=== PATIENT | female | born 1940 | race Caucasian/White ===

== ENCOUNTER 2017-07-15 09:04 | Emergency (ER) | payer MEDICARE, OTHER, SELFPAY ==
[2017-07-15 09:06] VITALS: BP 161/75; PULSE 84; RESP 15; TEMP 36.9; O2SAT 96; BMI 23.5
--- NOTE | 2017-07-15 09:16 | RAD_ITS ---
STUDY: X-RAY - PELVIS REASON FOR EXAM: Female, 77 years old. Fall, pain TECHNIQUE: One view of the pelvis was obtained. COMPARISON: None. FINDINGS: There is a non-specific bowel gas pattern. Normal visualized soft tissue structures. Normal bilateral iliac wings, sacroiliac joints and visualized sacrum. Normal visualized bilateral superior and inferior pubic rami. Normal pubic symphysis. Normal ischial tuberosities. Mild demineralization. Normal visualized right femoral head. Normal right acetabulum. There is mild articular joint space narrowing of the right hip. Left leg absent. RAD/Pelvis 1 or 2 Views IMPRESSION: No fracture. Demineralization. Left leg absent. Electronically Signed: Armando Peralta DO at 9:47 EDT , Service support ,
--- NOTE | 2017-07-15 09:29 | ED.VISSUMM ---
- ER Visit Summary Date of Service: 07/15/17 Chief Complaint: Left hip pain History of Present Illness: The patient is a 77 F who presents with pain in her left hip that began after a fall today. Patient states the pain is over the posterior aspect of her left hip area. Patient states the pain is worse with movement. Patient denies any paresthesias or weakness. Patient denies any head injury or loss of consciousness. Patient describes the pain as sharp and throbbing. Patient denies any other injuries. Physical Examination: Vital signs are stable. Patient is afebrile. Patient is in no acute distress. Musculoskeletal exam there is tenderness over the left ischial tuberosity. There is some pain with lateral compression of the pelvis. There is no pain with AP compression of the pelvis. Patient has had a prior left lower extremity amputation. The remaining physical exam is within normal limits. Test Results: X-rays of the pelvis were obtained. There is no acute fracture. This was interpreted by myself and the radiologist. Emergency Department Course and Treatment: Patient declined analgesics. Patient states she has gabapentin at home and can take Tylenol or Motrin along with this. Patient was instructed to use ice to the area. Patient was instructed to follow-up with her primary care physician in 7-10 days. Patient understood and was agreeable with the plan. All questions were answered. Disposition: Discharge home Impression: Left hip contusion This note was generated with [employer] dictation software. It may contain incorrect words, spelling, and punctuation that were not noted in review of the chart prior to signing ED Disposition - Plan for ED Patient: Disposition: Home or Assisted Living Chief Complaint: Lower Extremity Injury Diagnosis: Contusion of left hip Instructions: ED Contusion Hip Referrals: Alvaro Lawrence III, MD [Primary Care Provider] -
[2017-07-15 10:23] VITALS: PULSE 78; RESP 15; O2SAT 100
== END 2017-07-15 10:24 | disposition home or self-care (01) ==
PROVIDERS: Emergency Provider Emergency Medicine; Family Provider Family Medicine; PCP Family Medicine
DX: S70.02XA Contusion of left hip, initial encounter (principal); W19.XXXA Unspecified fall, initial encounter; Y93.9 Activity, unspecified; Y92.9 Unspecified place or not applicable; I10 Essential (primary) hypertension; K21.9 Gastro-esophageal reflux disease without esophagitis; Z79.82 Long term (current) use of aspirin; Z79.899 Other long term (current) drug therapy
CPT/HCPCS: 72170; 99282

== ENCOUNTER 2018-01-04 09:30 | Outpatient (RCR) | payer MEDICARE, OTHER, SELFPAY ==
[2017-12-28 09:15] VITALS: BP 157/82; PULSE 95; RESP 16; TEMP 36.2; BMI 24.0
--- NOTE | 2017-12-28 13:01 | PCM.WC.HP ---
(1) Decubitus ulcer of right buttock, stage 2 Status: Chronic Current Visit: Yes Code(s): L89.312 - Pressure ulcer of right buttock, stage 2 History of Present Illness Date of Service: 12/28/17 Chief Complaint: Right buttock ulcer History of Wound: Ms. Hernandez is a 77yo pleasant lady who presented the wound center due to concerns of a right buttock ulcer. Initially noted about 3-4 weeks ago after she sat for prolonged period. She has been applying hydrogel to the wound with some improvement. She feels well otherwise and denies chills, fever, change in bowel habits or any other concerns. Past Medical History Past Medical History: Chronic Problems Decubitus ulcer of right buttock, stage 2 (Chronic) Allergies/Adverse Reactions: Allergies amitriptyline Adverse Reaction (Verified 12/28/17 11:48) Other Home Medications: Ambulatory Orders Medication Instructions Recorded Aspirin [Ecotrin] 160 mg PO DAILY 04/09/13 Docusate Sodium [Colace] 200 mg PO DAILY 04/09/13 Ergocalciferol [Vitamin D] 50,000 unit PO Q14D 04/09/13 Gabapentin [Neurontin] 600 mg PO TID 04/09/13 Hydroxyurea [Hydrea] 500 mg PO QODAY 04/09/13 Ibuprofen [Advil] 200 mg PO Q6H PRN PRN 04/09/13 Lisinopril [Zestril] 10 mg PO DAILY 04/09/13 Lutein 6 mg PO DAILY 04/09/13 Multivit-Min/FA/Lycopene/Lut 1 tab PO DAILY 04/09/13 [Centrum Silver Tablet] Pentoxifylline [Trental] 400 mg PO BID 04/09/13 Psyllium [Metamucil] 1 packet PO TID 04/09/13 Verapamil [Calan Sr] 180 mg PO DAILY 04/09/13 Vitamin E 400 units PO BID 04/09/13 Polyethylene Glycol 3350 [Miralax] 17 gm PO DAILY PRN 07/15/17 Lorazepam [Ativan] 1 mg PO BID PRN PRN 12/28/17 Nitroglycerin Oint [Nitrol, 1 inch TD BID PRN PRN 12/28/17 Nitrobid] Omeprazole [Prilosec] 20 mg PO DAILY 12/28/17 Smoking Status: Never smoker Review of Systems Constitutional: Denies: Anorexia, Chills, Fever Eyes: Denies: Blurred vision, Redness HEENT: Denies: Difficulty Swallowing Cardiovascular: Denies: Chest Pain, Chest Tightness Respiratory: Denies: Cough, Hemoptysis Gastrointestinal: Denies: Abdominal Pain, Hematemesis, Vomiting Genitourinary: Denies: Hematuria Skin: Denies: Jaundice - Physical Exam Vital Signs Temp Pulse Resp BP 97.1 F L 95 16 157/82 H 12/28/17 09:15 12/28/17 09:15 12/28/17 09:15 12/28/17 09:15 General: Alert, Oriented x3, Cooperative, No apparent distress HEENT: Atraumatic Oral: Moist Mucosa Neck: Supple Lungs: Normal air movement Cardiovascular: Regular rate Abdomen: Soft, Non Tender Extremities: No cyanosis Skin: Ulcer/ Wound Wound Measurements and Assessment WC - Nurse 1 - General Ulcer Measurement Start: 12/28/17 09:14 Freq: Status: Active Protocol: Activity Type Activity Date Activity User E-Sign Co-Sign Detail Recorded Client Recorded Date Recorded By Document 12/28/17 09:15 [id number] 12/28/17 09:26 12/28/17 09:15 Wound Center Nurse 1 [Ulcer Assessment] 2-right medial buttucks -Combined with other wound No -Current Size (cm) - Length 0.2 -Current Size (cm) - Width 0.4 -Current Size (cm) - Depth 0.1 -Total Square Cm 0.08 -Photo Taken Yes -Epithelialization Large 67-100% -Tunneling No -Undermining/Tunneling No -Circular Undermining No -Classification - Pressure Ulcer Stage 2 -Exudate Amt None Present (0 %) -Wound Margin Flat & Intact -Granulation Amt Large (67-100%) -Granulation Quality Red -Slough/Fibrin Yes -Necrosis Amt Small (1-33%) -Necrotic Tissue Type Adherent Slough -Structure Exposed N/A -Texture (Daxa-wound Skin Appearance) Assessed Scarring -Moisture (Daxa-wound Skin Appearance Assessed ) Dry/Scaly -Color (Daxa-wound Skin Appearance) Assessed -Temperature (Daxa-wound Skin No Abnormality Appearance) (Pt Warm) -Tenderness on Palpation (Daxa-wound No Skin Appearance) -Ulcer Cleansing Rinsed/ Irrigated with Saline -Foul Odor after Cleansing No -Anesthetic Used 4% Lidocaine Solution [Edema Assessment] -Lower Limb Edema Present NA WC - Nurse 2 - General Ulcer CM Notes Start: 12/28/17 09:14 Freq: Status: Active Protocol: Activity Type Activity Date Activity User E-Sign Co-Sign Detail Recorded Client Recorded Date Recorded By Document 12/28/17 09:35 MW [id number] 12/28/17 09:45 MW 12/28/17 09:35 Wound Center Nurse 2 [Procedure/Treatment] 2-right medial buttucks -Time 09:43 -Correct Patient Yes -Correct Side, Site, Position Yes -Correct Procedure Yes -Procedure Performed Yes -Post Debridement Size (cm) - Length 0.4 -Post Debridement Size (cm) - Width 0.4 -Post Debridement Size (cm) - Depth 0.1 -Total Square Cm 0.16 -Wound/Ulcer Outcome Not Healed -Ulcer Cleansing Rinsed/ Irrigated with Saline -Foul Odor after Cleansing No -Bioengineered Tissue No -Bleeding Controlled with Pressure -Treatment Response Procedure Tolerated Well [See Physician Procedure note for Specifics] Pain Scale: 0-10 Numeric [Pain] -Is Patient Pain Free? Yes Musculoskeletal: No Muscle Wasting Neurological: Cranial nerves II-XII grossly intact Psych/Mental Status: Normal Affect Debridement Note Post-Debridement Measurements/Treatment - Nurse 2 - General Ulcer CM Notes Start: 12/28/17 09:14 Freq: Status: Active Protocol: Activity Type Activity Date Activity User E-Sign Co-Sign Detail Recorded Client Recorded Date Recorded By Document 12/28/17 09:35 MW [id number] 12/28/17 09:45 MW 12/28/17 09:35 Wound Center Nurse 2 2-right medial buttucks -Time 09:43 -Correct Patient Yes -Correct Side, Site, Position Yes -Correct Procedure Yes -Procedure Performed Yes -Post Debridement Size (cm) - Length 0.4 -Post Debridement Size (cm) - Width 0.4 -Post Debridement Size (cm) - Depth 0.1 -Total Square Cm 0.16 -Wound/Ulcer Outcome Not Healed -Ulcer Cleansing Rinsed/ Irrigated with Saline -Foul Odor after Cleansing No -Bioengineered Tissue No -Bleeding Controlled with Pressure -Treatment Response Procedure Tolerated Well Pain Scale: 0-10 Numeric Is Patient Pain Free? Yes Wound debrided: Right Buttock Wound Grade/Stage: Stage II Type of Debridement: Excisional debridement Anesthesia Used: 4% Lidocaine Solution Depth: Down to and including healthy tissue, in the subcutaneous layer Percentage of wound debrided: 100 Instrument Used: 3mm curette Tissue Removed: Biofilm and devitalized tissue Severity: Fat Layer Exposed Amount of bleeding with debridement: Mild Bleeding Controlled with: Pressure Patient tolerated procedure well Assessment/Plan Active Problems Decubitus ulcer of right buttock, stage 2 (Chronic) Assessment: Same as above. Plan: Debridement done as documented above. Procedure was well-tolerated. Will switch to Fibracol. Change every other day. Adaptic and OptiForm over top. Increased protein intake/supplements recommended. Gel cushions for prolonged sitting. Reposition often. She was advised to call with any questions or concerns. Follow-up in 1 week. This note was generated with [employer] dictation software. It may contain incorrect words, spelling, and punctuation that were not noted in checking the note before signing.
--- NOTE | 2017-12-28 13:07 | HP.PCM_ITS ---
(1) Decubitus ulcer of right buttock, stage 2 Status: Chronic Current Visit: Yes Code(s): L89.312 - Pressure ulcer of right buttock, stage 2 History of Present Illness Date of Service: 12/28/17 Chief Complaint: Right buttock ulcer History of Wound: Ms. Hernanedz is a 77yo pleasant lady who presented the wound center due to concerns of a right buttock ulcer. Initially noted about 3-4 weeks ago after she sat for prolonged period. She has been applying hydrogel to the wound with some improvement. She feels well otherwise and denies chills , fever, change in bowel habits or any other concerns. Past Medical History Past Medical History: Chronic Problems Decubitus ulcer of right buttock, stage 2 (Chronic) Allergies/Adverse Reactions: Allergies amitriptyline Adverse Reaction (Verified 12/28/17 11:48) Other Home Medications: Ambulatory Orders Medication Instructions Recorded Aspirin [Ecotrin] 160 mg PO DAILY 04/09/13 Docusate Sodium [Colace] 200 mg PO DAILY 04/09/13 Ergocalciferol [Vitamin D] 50,000 unit PO Q14D 04/09/13 Gabapentin [Neurontin] 600 mg PO TID 04/09/13 Hydroxyurea [Hydrea] 500 mg PO QODAY 04/09/13 Ibuprofen [Advil] 200 mg PO Q6H PRN PRN 04/09/13 Lisinopril [Zestril] 10 mg PO DAILY 04/09/13 Lutein 6 mg PO DAILY 04/09/13 Multivit-Min/FA/Lycopene/Lut 1 tab PO DAILY 04/09/13 [Centrum Silver Tablet] Pentoxifylline [Trental] 400 mg PO BID 04/09/13 Psyllium [Metamucil] 1 packet PO TID 04/09/13 Verapamil [Calan Sr] 180 mg PO DAILY 04/09/13 Vitamin E 400 units PO BID 04/09/13 Polyethylene Glycol 3350 [Miralax] 17 gm PO DAILY PRN 07/15/17 Lorazepam [Ativan] 1 mg PO BID PRN PRN 12/28/17 Nitroglycerin Oint [Nitrol, 1 inch TD BID PRN PRN 12/28/17 Nitrobid] Omeprazole [Prilosec] 20 mg PO DAILY 12/28/17 Smoking Status: Never smoker Review of Systems Constitutional: Denies: Anorexia, Chills, Fever Eyes: Denies: Blurred vision, Redness HEENT: Denies: Difficulty Swallowing Cardiovascular: Denies: Chest Pain, Chest Tightness Respiratory: Denies: Cough, Hemoptysis Gastrointestinal: Denies: Abdominal Pain, Hematemesis, Vomiting Genitourinary: Denies: Hematuria Skin: Denies: Jaundice - Physical Exam Vital Signs Temp Pulse Resp BP 97.1 F L 95 16 157/82 H 12/28/17 09:15 12/28/17 09:15 12/28/17 09:15 12/28/17 09:15 General: Alert, Oriented x3, Cooperative, No apparent distress HEENT: Atraumatic Oral: Moist Mucosa Neck: Supple Lungs: Normal air movement Cardiovascular: Regular rate Abdomen: Soft, Non Tender Extremities: No cyanosis Skin: Ulcer/ Wound Wound Measurements and Assessment WC - Nurse 1 - General Ulcer Measurement Start: 12/28/17 09:14 Freq: Status: Active Protocol: Activity Type Activity Date Activity User E-Sign Co-Sign Detail Recorded Client Recorded Date Recorded By Document 12/28/17 09:15 [id number] 12/28/17 09:26 12/28/17 09:15 Wound Center Nurse 1 [Ulcer Assessment] 2-right medial buttucks -Combined with other wound No -Current Size (cm) - Length 0.2 -Current Size (cm) - Width 0.4 -Current Size (cm) - Depth 0.1 -Total Square Cm 0.08 -Photo Taken Yes -Epithelialization Large 67-100% -Tunneling No -Undermining/Tunneling No -Circular Undermining No -Classification - Pressure Ulcer Stage 2 -Exudate Amt None Present (0 %) -Wound Margin Flat & Intact -Granulation Amt Large (67-100%) -Granulation Quality Red -Slough/Fibrin Yes -Necrosis Amt Small (1-33%) -Necrotic Tissue Type Adherent Slough -Structure Exposed N/A -Texture (Daxa-wound Skin Appearance) Assessed Scarring -Moisture (Daxa-wound Skin Appearance Assessed ) Dry/Scaly -Color (Daxa-wound Skin Appearance) Assessed -Temperature (Daxa-wound Skin No Abnormality Appearance) (Pt Warm) -Tenderness on Palpation (Daxa-wound No Skin Appearance) -Ulcer Cleansing Rinsed/ Irrigated with Saline -Foul Odor after Cleansing No -Anesthetic Used 4% Lidocaine Solution [Edema Assessment] -Lower Limb Edema Present NA WC - Nurse 2 - General Ulcer CM Notes Start: 12/28/17 09:14 Freq: Status: Active Protocol: Activity Type Activity Date Activity User E-Sign Co-Sign Detail Recorded Client Recorded Date Recorded By Document 12/28/17 09:35 MW [id number] 12/28/17 09:45 MW 12/28/17 09:35 Wound Center Nurse 2 [Procedure/Treatment] 2-right medial buttucks -Time 09:43 -Correct Patient Yes -Correct Side, Site, Position Yes -Correct Procedure Yes -Procedure Performed Yes -Post Debridement Size (cm) - Length 0.4 -Post Debridement Size (cm) - Width 0.4 -Post Debridement Size (cm) - Depth 0.1 -Total Square Cm 0.16 -Wound/Ulcer Outcome Not Healed -Ulcer Cleansing Rinsed/ Irrigated with Saline -Foul Odor after Cleansing No -Bioengineered Tissue No -Bleeding Controlled with Pressure -Treatment Response Procedure Tolerated Well [See Physician Procedure note for Specifics] Pain Scale: 0-10 Numeric [Pain] -Is Patient Pain Free? Yes Musculoskeletal: No Muscle Wasting Neurological: Cranial nerves II-XII grossly intact Psych/Mental Status: Normal Affect Debridement Note Post-Debridement Measurements/Treatment - Nurse 2 - General Ulcer CM Notes Start: 12/28/17 09:14 Freq: Status: Active Protocol: Activity Type Activity Date Activity User E-Sign Co-Sign Detail Recorded Client Recorded Date Recorded By Document 12/28/17 09:35 MW [id number] 12/28/17 09:45 MW 12/28/17 09:35 Wound Center Nurse 2 2-right medial buttucks -Time 09:43 -Correct Patient Yes -Correct Side, Site, Position Yes -Correct Procedure Yes -Procedure Performed Yes -Post Debridement Size (cm) - Length 0.4 -Post Debridement Size (cm) - Width 0.4 -Post Debridement Size (cm) - Depth 0.1 -Total Square Cm 0.16 -Wound/Ulcer Outcome Not Healed -Ulcer Cleansing Rinsed/ Irrigated with Saline -Foul Odor after Cleansing No -Bioengineered Tissue No -Bleeding Controlled with Pressure -Treatment Response Procedure Tolerated Well Pain Scale: 0-10 Numeric Is Patient Pain Free? Yes Wound debrided: Right Buttock Wound Grade/Stage: Stage II Type of Debridement: Excisional debridement Anesthesia Used: 4% Lidocaine Solution Depth: Down to and including healthy tissue, in the subcutaneous layer Percentage of wound debrided: 100 Instrument Used: 3mm curette Tissue Removed: Biofilm and devitalized tissue Severity: Fat Layer Exposed Amount of bleeding with debridement: Mild Bleeding Controlled with: Pressure Patient tolerated procedure well Assessment/Plan Active Problems Decubitus ulcer of right buttock, stage 2 (Chronic) Assessment: Same as above. Plan: Debridement done as documented above. Procedure was well-tolerated. Will switch to Fibracol. Change every other day. Adaptic and OptiForm over top. Increased protein intake/supplements recommended. Gel cushions for prolonged sitting. Reposition often. She was advised to call with any questions or concerns. Follow-up in 1 week. This note was generated with [employer] dictation software. It may contain incorrect words, spelling, and punctuation that were not noted in checking the note before signing.
[2018-01-04 09:35] VITALS: BP 141/71; PULSE 81; RESP 16; TEMP 36.3; BMI 24.0
--- NOTE | 2018-01-04 09:57 | PCM.WC.PN ---
(1) Decubitus ulcer of right buttock, stage 2 Status: Chronic Current Visit: Yes Code(s): L89.312 - Pressure ulcer of right buttock, stage 2 Type of Wound Date of Service: 01/04/18 Chief Complaint: Right buttock ulcer History of Wound: Ms. Hernandez is a 77yo pleasant lady who presented the wound center due to concerns of a right buttock ulcer. Initially noted about 3-4 weeks ago after she sat for prolonged period. She has been applying hydrogel to the wound with some improvement. She feels well otherwise and denies chills, fever, change in bowel habits or any other concerns. Progress of Wound: Healed. - Physical Exam Vital Signs Temp Pulse Resp BP 97.3 F L 81 16 141/71 H 01/04/18 09:35 01/04/18 09:35 01/04/18 09:35 01/04/18 09:35 General: Alert, Oriented x3, Cooperative, No apparent distress HEENT: Atraumatic Oral: Moist Mucosa Neck: Supple Lungs: Normal air movement Extremities: No cyanosis Wound Measurements and Assessment WC - Nurse 1 - General Ulcer Measurement Start: 12/28/17 09:14 Freq: Status: Active Protocol: Activity Type Activity Date Activity User E-Sign Co-Sign Detail Recorded Client Recorded Date Recorded By Document 01/04/18 09:35 [email or web address] [id number] 01/04/18 09:46 JAMA 01/04/18 09:35 Wound Center Nurse 1 [Ulcer Assessment] 2-right medial buttucks -Combined with other wound No -Current Size (cm) - Length 0.1 -Current Size (cm) - Width 0.1 -Current Size (cm) - Depth 0.1 -Total Square Cm 0.01 -Date of Last Picture (Recall this 12/28/17 field) -Photo Taken No -Epithelialization Large 67-100% -Tunneling No -Undermining/Tunneling No -Circular Undermining No -Classification - Thickness Partial Thickness -Classification - Pressure Ulcer Stage 2 -Exudate Amt None Present (0 %) -Wound Margin Flat & Intact -Granulation Amt None Present (0 %) -Granulation Quality N/A -Slough/Fibrin No -Necrosis Amt None Present (0 %) -Necrotic Tissue Type Eschar -Structure Exposed N/A -Texture (Daxa-wound Skin Appearance) No Abnormality -Moisture (Daxa-wound Skin Appearance No Abnormality ) -Color (Daxa-wound Skin Appearance) No Abnormality -Temperature (Daxa-wound Skin No Abnormality Appearance) (Pt Warm) -Tenderness on Palpation (Daxa-wound No Skin Appearance) -Ulcer Cleansing Not Cleansed -Foul Odor after Cleansing No [Edema Assessment] -Lower Limb Edema Present NA Musculoskeletal: No Muscle Wasting Neurological: Cranial nerves II-XII grossly intact Psych/Mental Status: Normal Affect Debridement Note Post-Debridement Measurements/Treatment WC - Nurse 2 - General Ulcer CM Notes Start: 12/28/17 09:14 Freq: Status: Active Protocol: Activity Type Activity Date Activity User E-Sign Co-Sign Detail Recorded Client Recorded Date Recorded By Document 12/28/17 09:35 MW [id number] 12/28/17 09:45 MW 12/28/17 09:35 Wound Center Nurse 2 2-right medial buttucks -Time 09:43 -Correct Patient Yes -Correct Side, Site, Position Yes -Correct Procedure Yes -Procedure Performed Yes -Post Debridement Size (cm) - Length 0.4 -Post Debridement Size (cm) - Width 0.4 -Post Debridement Size (cm) - Depth 0.1 -Total Square Cm 0.16 -Wound/Ulcer Outcome Not Healed -Ulcer Cleansing Rinsed/ Irrigated with Saline -Foul Odor after Cleansing No -Bioengineered Tissue No -Bleeding Controlled with Pressure -Treatment Response Procedure Tolerated Well Pain Scale: 0-10 Numeric Is Patient Pain Free? Yes No debridement was completed today Assessment/Plan Active Problems Decubitus ulcer of right buttock, stage 2 (Chronic) Assessment: Same as above. Plan: Wound has healed. Continue adaptic and OptiForm over top for 2 more weeks. Increased protein intake/supplements recommended. Gel cushions for prolonged sitting. Reposition often. She was advised to call with any questions or concerns. Discharged from the wound clinic. This note was generated with [employer] dictation software. It may contain incorrect words, spelling, and punctuation that were not noted in checking the note before signing.
--- NOTE | 2018-01-04 10:00 | PN.PCM_ITS ---
(1) Decubitus ulcer of right buttock, stage 2 Status: Chronic Current Visit: Yes Code(s): L89.312 - Pressure ulcer of right buttock, stage 2 Type of Wound Date of Service: 01/04/18 Chief Complaint: Right buttock ulcer History of Wound: Ms. Hernandez is a 77yo pleasant lady who presented the wound center due to concerns of a right buttock ulcer. Initially noted about 3-4 weeks ago after she sat for prolonged period. She has been applying hydrogel to the wound with some improvement. She feels well otherwise and denies chills , fever, change in bowel habits or any other concerns. Progress of Wound: Healed. - Physical Exam Vital Signs Temp Pulse Resp BP 97.3 F L 81 16 141/71 H 01/04/18 09:35 01/04/18 09:35 01/04/18 09:35 01/04/18 09:35 General: Alert, Oriented x3, Cooperative, No apparent distress HEENT: Atraumatic Oral: Moist Mucosa Neck: Supple Lungs: Normal air movement Extremities: No cyanosis Wound Measurements and Assessment WC - Nurse 1 - General Ulcer Measurement Start: 12/28/17 09:14 Freq: Status: Active Protocol: Activity Type Activity Date Activity User E-Sign Co-Sign Detail Recorded Client Recorded Date Recorded By Document 01/04/18 09:35 JAMA [id number] 01/04/18 09:46 JAMA 01/04/18 09:35 Wound Center Nurse 1 [Ulcer Assessment] 2-right medial buttucks -Combined with other wound No -Current Size (cm) - Length 0.1 -Current Size (cm) - Width 0.1 -Current Size (cm) - Depth 0.1 -Total Square Cm 0.01 -Date of Last Picture (Recall this 12/28/17 field) -Photo Taken No -Epithelialization Large 67-100% -Tunneling No -Undermining/Tunneling No -Circular Undermining No -Classification - Thickness Partial Thickness -Classification - Pressure Ulcer Stage 2 -Exudate Amt None Present (0 %) -Wound Margin Flat & Intact -Granulation Amt None Present (0 %) -Granulation Quality N/A -Slough/Fibrin No -Necrosis Amt None Present (0 %) -Necrotic Tissue Type Eschar -Structure Exposed N/A -Texture (Daxa-wound Skin Appearance) No Abnormality -Moisture (Daxa-wound Skin Appearance No Abnormality ) -Color (Daxa-wound Skin Appearance) No Abnormality -Temperature (Daxa-wound Skin No Abnormality Appearance) (Pt Warm) -Tenderness on Palpation (Daxa-wound No Skin Appearance) -Ulcer Cleansing Not Cleansed -Foul Odor after Cleansing No [Edema Assessment] -Lower Limb Edema Present NA Musculoskeletal: No Muscle Wasting Neurological: Cranial nerves II-XII grossly intact Psych/Mental Status: Normal Affect Debridement Note Post-Debridement Measurements/Treatment WC - Nurse 2 - General Ulcer CM Notes Start: 12/28/17 09:14 Freq: Status: Active Protocol: Activity Type Activity Date Activity User E-Sign Co-Sign Detail Recorded Client Recorded Date Recorded By Document 12/28/17 09:35 MW [id number] 12/28/17 09:45 MW 12/28/17 09:35 Wound Center Nurse 2 2-right medial buttucks -Time 09:43 -Correct Patient Yes -Correct Side, Site, Position Yes -Correct Procedure Yes -Procedure Performed Yes -Post Debridement Size (cm) - Length 0.4 -Post Debridement Size (cm) - Width 0.4 -Post Debridement Size (cm) - Depth 0.1 -Total Square Cm 0.16 -Wound/Ulcer Outcome Not Healed -Ulcer Cleansing Rinsed/ Irrigated with Saline -Foul Odor after Cleansing No -Bioengineered Tissue No -Bleeding Controlled with Pressure -Treatment Response Procedure Tolerated Well Pain Scale: 0-10 Numeric Is Patient Pain Free? Yes No debridement was completed today Assessment/Plan Active Problems Decubitus ulcer of right buttock, stage 2 (Chronic) Assessment: Same as above. Plan: Wound has healed. Continue adaptic and OptiForm over top for 2 more weeks. Increased protein intake/supplements recommended. Gel cushions for prolonged sitting. Reposition often. She was advised to call with any questions or concerns. Discharged from the wound clinic. This note was generated with [employer] dictation software. It may contain incorrect words, spelling, and punctuation that were not noted in checking the note before signing.
== END 2018-01-21 23:59 ==
LOC: WC 09:30
PROVIDERS: Family Provider Family Medicine; PCP Family Medicine; Visit Provider Internal Medicine
DX: L89.312 Pressure ulcer of right buttock, stage 2 (principal); Z79.899 Other long term (current) drug therapy; Z79.82 Long term (current) use of aspirin
CPT/HCPCS: 11042; 99212; 99213; G0463

== ENCOUNTER → 2018-01-31 10:47 | Outpatient (CLI) | payer MEDICARE, OTHER, SELFPAY ==
[2018-02-02 13:43] LABS: V-Zoster IgG (Immunity) 2271 index (Immune >165); V-Zoster Virus Acute IgM < 0.91 index (0.00-0.90)
== END ==
PROVIDERS: Family Provider Family Medicine; PCP Family Medicine; Referring Provider Nurse Practitioner Family; Visit Provider Nurse Practitioner Family
DX: B02.9 Zoster without complications (principal); L82.1 Other seborrheic keratosis; L30.9 Dermatitis, unspecified; L40.8 Other psoriasis
CPT/HCPCS: 36415; 86787

== ENCOUNTER 2019-02-04 10:41 | Emergency (ER) | payer MEDICARE, OTHER, SELFPAY ==
[2019-02-04 10:43] VITALS: BP 117/99; BP 153/72; PULSE 101; PULSE 102; RESP 16; RESP 18; TEMP 36.3; O2SAT 100; O2SAT 99; BMI 24.3
--- NOTE | 2019-02-04 10:54 | CT_ITS ---
STUDY: CT ABDOMEN AND PELVIS WITHOUT CONTRAST REASON FOR EXAM: Female, 78 years old. Abdominal pain and left hip pain following a recent fall. 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 RADIATION DOSAGE (If Supplied By Facility): CTDIvol = ( 10.30 ) mGy, DLP = ( 560.99 ) mGycm TECHNIQUE: Transaxial images were obtained from the dome of the diaphragm to the symphysis pubis without oral contrast, and without intravenous contrast. Sagittal and coronal images were reconstructed. Individualized dose optimization techniques were used for this CT. COMPARISON: None. FINDINGS: Mild degree of increased linear markings at the lung bases suggestive of scarring and/or atelectasis. Coronary artery calcification. There is a 6.9 mm rounded hypodensity in the posterior dome of the right lobe of the liver most likely representing a small cyst. A similar appearing nodule measuring 8.3 mm seen along the lateral aspect of the right lobe of the liver. Normal gallbladder and extrahepatic biliary system. Normal spleen. Normal pancreas. Normal bilateral adrenal glands. There is evidence of a large staghorn calculus occupying the entire renal pelvis and collecting system on the right side. This measures 3.7 cm x 2.1 cm. Normal left kidney. There is a small hiatal hernia. Normal small intestine. Moderate amount of fecal material is seen in the colon. The appendix is visualized and appears normal. There is diffuse atherosclerotic calcification of the abdominal aorta, without a demonstrated aneurysm. Normal inferior vena cava. There is borderline retroperitoneal lymphadenopathy with enlarged nodes no greater than 10mm in the short axis diameter. Normal urinary bladder. There is muscular atrophy involving the left psoas muscle as well as the left iliopsoas and the musculature surrounding the left hip. This is in keeping with patient's history of amputation of the left lower extremity and disarticulation of the left hip joint.. There is a small umbilical hernia containing fat. Disc space narrowing and disc degeneration at the L5-S1 level. CT/Abdomen/Pelvis without Cont IMPRESSION: Findings suggestive of small cysts in the liver as described. Large staghorn calculus occupying the right renal collecting system and right renal pelvis. Status post this articulation of the left hip joint. Electronically Signed: Fredy Franco, at 11:35 EDT , Service support ,
--- NOTE | 2019-02-04 10:54 | ED.VISSUMM ---
- ER Visit Summary Date of Service: 02/04/19 Chief Complaint: Fall, left hip and abdominal pain History of Present Illness: The patient is a 78 F patient has left hip and lower abdominal pain after fall. She has a previous left leg amputation and ambulates with crutches. She was sleeping in a recliner and she got up and lost her balance and fell. She landed directly on her left side. No head trauma or LOC. She denies any head or neck pain. The only pain she has is in this left hip area. Physical Examination: Vital signs reviewed. HEENT exam is atraumatic. Heart is regular rate rhythm. Lungs are clear. She has no chest tenderness. Abdomen is soft with no real abdominal tenderness. She has tenderness in the left hip area. She has a previous left hip disarticulation and pain around this area. There are no skin changes. No ecchymosis. Her GCS is 15. Test Results: CAT scan of the abdomen and pelvis reveals cysts on the liver and a large staghorn calculus in the right renal collecting system. There is evidence of any traumatic injuries Emergency Department Course and Treatment: The patient was given fentanyl and then morphine for pain. She takes gabapentin at home because of phantom pains in the left leg which was amputated due to history of osteosarcoma. At this point I feel the patient can be discharged. I will give her a few oxycodone for pain at home. She will need follow-up with her PCP Treatment Plan: [] Disposition: Discharge Impression: Left pelvis pain This note was generated with [employer] dictation software. It may contain incorrect words, spelling, and punctuation that were not noted in review of the chart prior to signing ED Disposition - Plan for ED Patient: Referrals: Alvaro Lawrence III, MD [Primary Care Provider] -
[2019-02-04] MEDS: fentaNYL 100 MCG/2 ML Ampul 50 MCG IV (11:09)
--- NOTE | 2019-02-04 12:38 | ED.DEP ---
ED Disposition - Plan for ED Patient: Disposition: Home or Assisted Living Instructions: FALL, Mechanical Prescriptions: Oxycodone HCl [Roxicodone] 5 mg PO TID PRN 3 Days #8 tab PRN Reason: Pain/Inflammation Prescription Printed Referrals: Alvaro Lawrence III, MD [Primary Care Provider] -
[2019-02-04] MEDS: Morphine 4 MG/ML Syringe IV (13:09)
[2019-02-04 13:10] VITALS: BP 138/64; PULSE 110; RESP 20; O2SAT 97
--- NOTE | 2019-02-04 14:00 | CM.ED ---
Social Work Consult: Home Health Informant: BRADLEY Matson Chief Complaint: Patient with fall this AM. Patient plans to return to home. Patient requesting for Physical and Occupational therapy to be set up within the home due to fall and pain with movement. Pertinent Medical History: Hx of L Leg amputation. Marital/Social History: to Parth Earl. Has an adult daughter that lives local that checks in with patient throughout the week. Parth is retired and is with patient most of the time. DME: Wheelchair, Crutches, Bedside Commode, Walker. ADL's: Patient reporting to be independent with all ADL's and functioning within the home prior to fall. Assessment: Met with patient and patient spouse in the room. This hospital social worker introduced self as well as hospital social worker role. Patient agreeable to meet with this hospital social worker. Patient stating to have had [facility] ([facility]) in the past and would like to have another referral for this agency. This hospital social worker confirming patient address and contact information. Patient identifying no concerns with ability to be able to meet own needs within the home/community. Patient stating to have needed support and I just need some strengthening. Collaborating with Dr. Lazo. Dr. Grissom agreeable to plan and order for home health care. [facility] This [facility] social worker making referral for [facility]. They are able to accept. Order for home health has been entered. [facility] stating that a physical therapist will be contacting patient tomorrow to set up time for home visit. Marley CANAS, SHIVAM
[2019-02-04 14:01] VITALS: BP 109/69; PULSE 72; RESP 18; O2SAT 100
--- NOTE | 2019-02-04 14:03 | ED.RN ---
THIS NURSE REVIEWED D/C INSTRUCTIONS WITH PT AND VISITOR. PT VERBALIZED UNDERSTANDING OF INSTRUCTIONS. IV D/C. IV CATHETER INTACT. PT TOLERATED WELL. PT DENIES FURTHER NEEDS OR QUESTIONS AT THIS TIME.
--- NOTE | 2019-02-04 14:11 | CM.ED ---
Social Work Telephone call from [facility], Carol. Arguello communicating to this social insurance analyst that Dr. Lawrence, patient PCP is not willing to sign for home health care as patient has not seen Dr. Lawrence for over a year. Spoke with patient. This social insurance analyst updating patient on above information. Patient voicing understanding and planning to set up PCP appointment. Patient declining for this social insurance analyst to set up an appointment for patient. Patient aware that patient is unable to have home health until PCP signs off on paperwork. Telephone call back to Carol. Arguello planning to follow up with patient within the next few days to check on referral status and appointment with Dr. Lawrence. All agreeable to plan. Medical team updated. Marley CANAS, SHIVAM
== END 2019-02-04 14:03 | disposition home or self-care (01) ==
PROVIDERS: Emergency Provider Emergency Medicine; Family Provider Family Medicine; PCP Family Medicine
DX: R10.2 Pelvic and perineal pain (principal); I10 Essential (primary) hypertension; M81.0 Age-related osteoporosis without current pathological fracture; Z89.612 Acquired absence of left leg above knee; Z79.82 Long term (current) use of aspirin; Z79.899 Other long term (current) drug therapy
CPT/HCPCS: 74176; 96374; 96375; 99285; A4216

== ENCOUNTER 2019-08-22 12:30 | Outpatient (RCR) | payer MEDICARE, OTHER, SELFPAY ==
[2019-08-15 10:51] VITALS: BP 162/69; PULSE 93; RESP 20; TEMP 36.7; BMI 22.4
--- NOTE | 2019-08-15 12:11 | PCM.WC.HP ---
(1) Decubitus ulcer of right buttock, stage 2 Status: Chronic Current Visit: Yes Code(s): L89.312 - Pressure ulcer of right buttock, stage 2 History of Present Illness Date of Service: 08/15/19 Chief Complaint: Right buttock ulcer History of Wound: Ms. Hernandez is an 79yo pleasant lady who presented the wound center due to aright buttock ulcer. Initially noted about 2 months ago. Fell in January and due to her injuries had become more sedentary. The ulcer was being managed by home health for about a month and subsequently, patient has been applying hydrogel with her 's help. She is concerned that there has been no significant improvement. She feels well otherwise, denies chills, fever, nausea, vomiting or change in bowel habits. Past Medical History Past Medical History: Chronic Problems Decubitus ulcer of right buttock, stage 2 (Chronic) Allergies/Adverse Reactions: Allergies amitriptyline Adverse Reaction (Verified 08/15/19 11:07) Other Home Medications: Ambulatory Orders Medication Instructions Recorded Aspirin [Ecotrin] 160 mg PO DAILY 04/09/13 Docusate Sodium [Colace] 200 mg PO DAILY 04/09/13 Gabapentin [Neurontin] 600 mg PO TID 04/09/13 Ibuprofen [Advil] 200 mg PO Q6H PRN PRN 04/09/13 Lisinopril [Zestril] 10 mg PO DAILY 04/09/13 Lutein 6 mg PO DAILY 04/09/13 Multivit-Min/FA/Lycopene/Lut 1 tab PO DAILY 04/09/13 [Centrum Silver Tablet] Pentoxifylline [Trental] 400 mg PO BID 04/09/13 Psyllium [Metamucil] 1 packet PO TID 04/09/13 Verapamil [Calan Sr] 180 mg PO DAILY 04/09/13 Vitamin E 400 units PO BID 04/09/13 Polyethylene Glycol 3350 [Miralax] 17 gm PO DAILY PRN 07/15/17 Omeprazole [Prilosec] 20 mg PO DAILY 12/28/17 Cholecalciferol (Vitamin D3) 2,000 unit PO DAILY 02/04/19 [Vitamin D3] Smoking Status: Never smoker Review of Systems Constitutional: Denies: Anorexia, Chills, Fever, Night Sweats Eyes: Denies: Blurred vision, Pain, Redness HEENT: Denies: Difficulty Hearing, Difficulty Swallowing Cardiovascular: Denies: Chest Pain, Claudication, Chest Pressure Respiratory: Denies: Cough, Wheezing Gastrointestinal: Denies: Hematemesis, Vomiting Skin: Denies: Jaundice - Physical Exam Vital Signs Temp Pulse Resp BP 98.1 F 93 20 H 162/69 H 08/15/19 10:51 08/15/19 10:51 08/15/19 10:51 08/15/19 10:51 General: Alert, Oriented x3, Cooperative, No apparent distress HEENT: Atraumatic, Normocephalic Oral: Moist Mucosa Neck: Supple Lungs: Clear to auscultation, Normal air movement Cardiovascular: Regular rate, Regular Rhythm, Normal S1, Normal S2 Abdomen: Non Tender Extremities: No cyanosis Skin: Ulcer/ Wound Wound Measurements and Assessment WC - Nurse 1 - General Ulcer Measurement Start: 08/15/19 10:49 Freq: Status: Active Protocol: Activity Type Activity Date Activity User E-Sign Co-Sign Detail Recorded Client Recorded Date Recorded By Document 08/15/19 10:51 DL [id number] 08/15/19 11:05 DL 08/15/19 10:51 Wound Center Nurse 1 [Ulcer Assessment] 2-right medial buttucks -Current Size (cm) - Length 0.4 -Current Size (cm) - Width 0.7 -Current Size (cm) - Depth 0.1 -Total Square Cm 0.28 -Photo Taken Yes -Classification - Thickness Partial Thickness -Exudate Amt None Present -Wound Margin Flat & Intact -Granulation Amt Small (1-33%) -Granulation Quality [place] -Necrosis Amt Small (1-33%) -Necrotic Tissue Type Adherent Slough -Structure Exposed N/A -Texture (Daxa-wound Skin Appearance) Scarring -Moisture (Daxa-wound Skin Appearance No Abnormality ) -Color (Daxa-wound Skin Appearance) No Abnormality -Temperature (Daxa-wound Skin No Abnormality Appearance) (Pt Warm) -Tenderness on Palpation (Daxa-wound No Skin Appearance) -Ulcer Cleansing Rinsed/ Irrigated with Saline -Foul Odor after Cleansing No -Anesthetic Used 4% Lidocaine Solution WC - Nurse 2 - General Ulcer CM Notes Start: 08/15/19 10:49 Freq: Status: Active Protocol: Activity Type Activity Date Activity User E-Sign Co-Sign Detail Recorded Client Recorded Date Recorded By Document 08/15/19 11:23 MW [id number] 08/15/19 11:30 MW 08/15/19 11:23 Wound Center Nurse 2 [Procedure/Treatment] -Time 11:25 -Correct Patient Yes -Correct Side, Site, Position Yes -Correct Procedure Yes -Procedure Performed Yes -Type of Procedure Debridement -Clinical Debridement Subcutaneous -Post Debridement Size (cm) - Length 1.0 -Post Debridement Size (cm) - Width 0.8 -Post Debridement Size (cm) - Depth 0.1 -Total Square Cm 0.80 -Wound/Ulcer Outcome Not Healed -Ulcer Cleansing Rinsed/ Irrigated with Saline -Foul Odor after Cleansing No -Bioengineered Tissue No -Bleeding Controlled with Pressure -Offloading No -Treatment Response Procedure Tolerated Well [See Physician Procedure note for Specifics] Pain Scale: 0-10 Numeric [Pain] -Is Patient Pain Free? Yes Musculoskeletal: No Muscle Wasting Neurological: Cranial nerves II-XII grossly intact Psych/Mental Status: Normal Affect Debridement Note Post-Debridement Measurements/Treatment WC - Nurse 2 - General Ulcer CM Notes Start: 08/15/19 10:49 Freq: Status: Active Protocol: Activity Type Activity Date Activity User E-Sign Co-Sign Detail Recorded Client Recorded Date Recorded By Document 08/15/19 11:23 MW [id number] 08/15/19 11:30 MW 08/15/19 11:23 Wound Center Nurse 2 2-right medial buttucks -Time 11:25 -Correct Patient Yes -Correct Side, Site, Position Yes -Correct Procedure Yes -Procedure Performed Yes -Type of Procedure Debridement -Clinical Debridement Subcutaneous -Post Debridement Size (cm) - Length 1.0 -Post Debridement Size (cm) - Width 0.8 -Post Debridement Size (cm) - Depth 0.1 -Total Square Cm 0.80 -Wound/Ulcer Outcome Not Healed -Ulcer Cleansing Rinsed/ Irrigated with Saline -Foul Odor after Cleansing No -Bioengineered Tissue No -Bleeding Controlled with Pressure -Offloading No -Treatment Response Procedure Tolerated Well Pain Scale: 0-10 Numeric Is Patient Pain Free? Yes Wound debrided: Right Buttock Wound Grade/Stage: Stage II Type of Debridement: Excisional debridement Anesthesia Used: 4% Lidocaine Solution Depth: Down to and including healthy tissue, in the subcutaneous layer Percentage of wound debrided: 100 Instrument Used: 3mm curette Tissue Removed: Slough and devitalized tissue Severity: Fat Layer Exposed Amount of bleeding with debridement: Mild Bleeding Controlled with: Pressure Patient tolerated procedure well Assessment/Plan Active Problems Decubitus ulcer of right buttock, stage 2 (Chronic) Assessment: Same as above. Plan: Debridement done as documented above. Procedure was well-tolerated. Promogran daily with OptiForm over top. Offloading strongly recommended. Advised to take a protein supplement at least daily. Her questions were answered and she was advised to call with any further questions or concerns. Follow-up in a week. This note was generated with [employer] dictation software. It may contain incorrect words, spelling, and punctuation that were not noted in checking the note before signing. Multi Select Codes - Visit Charges Office Visit/Consults: 81748 OV L3 Est - Integumentary Integumentary CPT Codes: 32501 Joanne subq tissue 20 sq cm/<
[2019-08-22 12:33] VITALS: BP 151/62; PULSE 96; RESP 18; TEMP 36.2; BMI 22.4
--- NOTE | 2019-08-22 13:14 | PN.PCM_ITS ---
(1) Decubitus ulcer of right buttock, stage 2 Status: Chronic Current Visit: Yes Code(s): L89.312 - Pressure ulcer of right buttock, stage 2 Type of Wound Date of Service: 08/22/19 Chief Complaint: Right buttock ulcer History of Wound: Ms. Hernandez is an 79yo pleasant lady who presented the wound center due to aright buttock ulcer. Initially noted about 2 months ago. Fell in January and due to her injuries had become more sedentary. The ulcer was being managed by home health for about a month and subsequently, patient has been applying hydrogel with her 's help. She is concerned that there has been no significant improvement. She feels well otherwise, denies chills, fever, nausea, vomiting or change in bowel habits. Progress of Wound: Healed. No new concerns. - Physical Exam Vital Signs Temp Pulse Resp BP 97.1 F L 96 18 151/62 H 08/22/19 12:33 08/22/19 12:33 08/22/19 12:33 08/22/19 12:33 General: Alert, Oriented x3, Cooperative, No apparent distress HEENT: Atraumatic, Normocephalic Oral: Moist Mucosa Neck: Supple Lungs: Normal air movement Abdomen: Non Tender Extremities: No cyanosis Wound Measurements and Assessment WC - Nurse 1 - General Ulcer Measurement Start: 08/15/19 10:49 Freq: Status: Active Protocol: Activity Type Activity Date Activity User E-Sign Co-Sign Detail Recorded Client Recorded Date Recorded By Document 08/22/19 12:33 PL [id number] 08/22/19 12:38 PL 08/22/19 12:33 Wound Center Nurse 1 [Ulcer Assessment] 2-right medial buttucks -Combined with other wound No -Current Size (cm) - Length 0 -Current Size (cm) - Width 0 -Current Size (cm) - Depth 0 -Total Square Cm 0 -Epithelialization Large 67-100% -Tunneling No -Undermining/Tunneling No -Granulation Amt Large (67-100%) -Granulation Quality [place] -Slough/Fibrin No -Necrosis Amt None Present (0 %) -Ulcer Cleansing Rinsed/ Irrigated with Saline -Foul Odor after Cleansing No WC - Nurse 2 - General Ulcer CM Notes Start: 08/15/19 10:49 Freq: Status: Active Protocol: Activity Type Activity Date Activity User E-Sign Co-Sign Detail Recorded Client Recorded Date Recorded By Document 08/22/19 12:57 MW [id number] 08/22/19 12:58 MW 08/22/19 12:57 Wound Center Nurse 2 [Procedure/Treatment] -Time 12:57 -Correct Patient Yes -Correct Side, Site, Position Yes -Correct Procedure Yes -Procedure Performed No -Post Debridement Size (cm) - Length 0 -Post Debridement Size (cm) - Width 0 -Post Debridement Size (cm) - Depth 0 -Total Square Cm 0 -Wound/Ulcer Outcome Healed- Epithelialized [See Physician Procedure note for Specifics] Pain Scale: 0-10 Numeric [Pain] -Is Patient Pain Free? Yes Musculoskeletal: No Muscle Wasting Neurological: Cranial nerves II-XII grossly intact Psych/Mental Status: Normal Affect Debridement Note Post-Debridement Measurements/Treatment WC - Nurse 2 - General Ulcer CM Notes Start: 08/15/19 10:49 Freq: Status: Active Protocol: Activity Type Activity Date Activity User E-Sign Co-Sign Detail Recorded Client Recorded Date Recorded By Document 08/15/19 11:23 MW [id number] 08/15/19 11:30 MW Document 08/22/19 12:57 MW [id number] 08/22/19 12:58 MW 08/15/19 08/22/19 11:23 12:57 Wound Center Nurse 2 2-right medial buttucks -Time 11:25 12:57 -Correct Patient Yes Yes -Correct Side, Site, Position Yes Yes -Correct Procedure Yes Yes -Procedure Performed Yes No -Type of Procedure Debridement -Clinical Debridement Subcutaneous -Post Debridement Size (cm) - Length 1.0 0 -Post Debridement Size (cm) - Width 0.8 0 -Post Debridement Size (cm) - Depth 0.1 0 -Total Square Cm 0.80 0 -Wound/Ulcer Outcome Not Healed Healed- Epithelialized -Ulcer Cleansing Rinsed/ Irrigated with Saline -Foul Odor after Cleansing No -Bioengineered Tissue No -Bleeding Controlled with Pressure -Offloading No -Treatment Response Procedure Tolerated Well Pain Scale: 0-10 Numeric Is Patient Pain Free? Yes Yes No debridement was completed today Assessment/Plan Active Problems Decubitus ulcer of right buttock, stage 2 (Chronic) Assessment: Same as above. Plan: Healed. No new concerns at this time. Adaptic and gauze over top for 2 weeks. Her questions were answered and she was advised to call with any further questions or concerns. Discharge from the wound center. This note was generated with [employer] dictation software. It may contain incorrect words, spelling, and punctuation that were not noted in checking the note before signing. Office Visits / Consults: [id number] OV L3 Est
== END 2019-08-22 23:59 ==
LOC: WC 12:30
PROVIDERS: PCP Family Medicine; Visit Provider Internal Medicine
DX: L89.312 Pressure ulcer of right buttock, stage 2 (principal)
CPT/HCPCS: 11042; 99213; G0463

== ENCOUNTER → 2019-11-28 10:55 | Outpatient (CLI) | payer MEDICARE, OTHER, SELFPAY ==
--- NOTE | 2019-11-28 11:00 | BD_ITS ---
STUDY: DUAL ENERGY X-RAY ABSORPTIOMETRY / DXA REASON FOR EXAM: Female, 79 years old. Age of efrain 51. Pat is 136# and 61.5 and quot; a loss of 2.5 and quot; per pat. Past hx of taking Estrogen and premerine. Past hx of taking Fosamax. Pat takes a diuretic and a multi-vit, also takes Gabapentin. Exercises a little. Sisters had osteo. Hx of left wrist fx with surgery. 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 TECHNIQUE: Bone Mineral Density (BMD) measurements of lumbar spine and right hip were obtained. COMPARISON: Comparison is made with prior study dated 02/10/1999. FINDINGS: Lumbar Spine (L1-L4): g/cm2 (0.901) / T-score (-2.3) / Z-score (-0.5) Findings are suggestive of osteopenia with a high fracture risk. Right Femur Total: g/cm2 (0.788) / T-score (-1.7) / Z-score (0.3) Right Femoral Neck: g/cm2 (0.802) / T-score (-1.7) / Z-score (0.5) The T-Scores on the most recent prior examination were: Lumbar Spine (L1-L4): There has been improvement of bone density since the previous examination. Right Femur Total: which represents an improvement of 0.3%. BD/Dexa Bone Density Study IMPRESSION: The patient is considered osteopenic as outlined below according to World Josafat Organization (WHO) criteria with a high fracture risk. There has been improvement of bone density since the previous examination. Reference Information: The T-score is the number of standard deviations above or below the standard which is normal for young adults at their peak bone mineral density. The World Health Organization (WHO) interprets the T-scores as follows: Above -1 Normal bone density Between -1 and -2.5 Osteopenia Equal to / or below -2.5 Osteoporosis As a practical clinical guideline, osteopenia may be graded as follows: Mild -1 through -1.5 Moderate -1.6 through -2.0 Severe -2.1 through -2.4 The Z-score is the number of standard deviations above or below age-matched controls. A Z-score of less than -1.5 would be considered abnormal. References: 1. NIH Osteoporosis and Related Bone Diseases http://www.osteo.org 2. International Society for Clinical Densitometry http://www.iscd.org 3. National Osteoporosis Foundation http://www.nof.org Electronically Signed: Fredy Franco, at 12:55 EDT , Service support ,
== END ==
PROVIDERS: PCP Family Medicine; Referring Provider Family Medicine; Visit Provider Family Medicine
DX: M81.0 Age-related osteoporosis without current pathological fracture (principal)
CPT/HCPCS: 77080

== ENCOUNTER 2019-12-05 11:02 | Outpatient (RCR) | payer MEDICARE, OTHER, SELFPAY ==
[2019-08-23 00:22] VITALS: BP 151/62; PULSE 96; RESP 18; TEMP 36.2
== END 2019-12-23 23:59 ==
LOC: WC 11:02
PROVIDERS: PCP Family Medicine; Referring Provider Internal Medicine; Visit Provider Internal Medicine
DX: Z09 Encounter for follow-up examination after completed treatment for conditions other than malignant neoplasm (principal)

== ENCOUNTER 2020-05-22 09:47 | Outpatient (RCR) | payer MEDICARE, OTHER, SELFPAY | END 2020-05-22 23:59 | LOC: IMMUN 09:47 | PROVIDERS: PCP Family Medicine; Visit Provider Family Medicine | DX: Z23 Encounter for immunization (principal) | CPT/HCPCS: 0011A; 0012A; 91301 ==

== ENCOUNTER 2021-10-13 10:00 | Outpatient (RCR) | payer MEDICARE, OTHER, SELFPAY ==
[2021-09-29 10:06] VITALS: BP 155/97; PULSE 91; TEMP 36.3
--- NOTE | 2021-09-29 11:15 | HP.PCM_ITS ---
History of Present Illness Date of Service: 09/29/21 Chief Complaint: Right buttock ulcer History of Wound: Ms. Hernandez is an 81yo pleasant lady who presented the wound center due to aright buttock ulcer. Initially noted about 3 years ago. Fell a couple of years ago in January and due to her injuries had become more sedentary. She has been using zinc on it and it calluses over and causes her pain. Today it is more of a callus that an open wound. PFSH Home Medications aspirin [Ecotrin] 160 mg PO DAILY 04/09/13 [History Last Taken Unknown] docusate sodium [Colace] 200 mg PO DAILY 04/09/13 [History Last Taken Unknown] gabapentin 600 mg PO TID 04/09/13 [History Last Taken Unknown] ibuprofen 200 mg PO Q6H PRN PRN 04/09/13 [History Last Taken Unknown] lisinopril 10 mg PO DAILY 04/09/13 [History Last Taken Unknown] lutein 6 mg PO DAILY 04/09/13 [History Last Taken Unknown] jjvrkqik-unb-UC-lycopen-lutein [Centrum Silver Tablet] 1 tab PO DAILY 04/09/13 [History Last Taken Unknown] pentoxifylline 400 mg PO BID 04/09/13 [History Last Taken Unknown] psyllium husk (aspartame) [Metamucil] 1 packet PO TID 04/09/13 [History Last Taken Unknown] verapamil 180 mg PO DAILY 04/09/13 [History Last Taken Unknown] vitamin E (dl, acetate) 400 units PO BID 04/09/13 [History Last Taken Unknown] polyethylene glycol 3350 17 g PO DAILY PRN 07/15/17 [History Last Taken Unknown] omeprazole 20 mg PO DAILY 12/28/17 [History Last Taken Unknown] cholecalciferol (vitamin D3) 2,000 unit PO DAILY 02/04/19 [History Last Taken Unknown] Allergy/AdvReac Type Severity Reaction Status Date / Time amitriptyline AdvReac Other Verified 08/15/19 11:07 Social History Smoking Status: Never smoker ROS Integumentary Integumentary: Reports skin ulcer, wounds and other Details: Right buttocks cheek Vital Signs Vital Signs Vital Signs: 09/29/21 10:06 Temperature 97.3 F L Temperature Source Temporal Pulse Rate 91 Blood Pressure 155/97 H Blood Pressure Mean 116 Blood Pressure Source Monitor Blood Pressure Position Sitting Blood Pressure Location Left Arm Physical Exam Const oriented x3 General Appearance: cooperative Exam Limitations: no limitations Resp normal respiratory effort Effort and Inspection: able to speak in complete sentences Auscultation: clear to auscultation bilaterally Cardio regular rate and regular rhythm Palpation: normal PMI Rate: regular rate Rhythm: regular rhythm GI Auscultation: normoactive bowel sounds Palpation: soft and no hepatosplenomegaly external exam normal Back/Spine Cervical Spine: cervical ROM normal Thoracic Spine / Upper Back: normal to inspection Lumbar Spine / Lower Back: normal to inspection Extremity normal to inspection General Extremity: normal exam except as noted Skin no rashes or lesions noted Neuro oriented x3 Psych Appearance: grossly normal Speech: normal speech Thought Content: normal thought content Judgement: judgement good Debridement Note Debridement Note Wound debrided: Right buttocks Type of Debridement: Excisional debridement Anesthesia Used: 5% Lidocaine Gel Depth: Down to and including healthy tissue Percentage of wound debrided: 100 Instrument Used: 7mm curette and - (Nippers) Tissue Removed: Devitalized tissue callus Severity: Limited To Skin Breakdown Amount of bleeding with debridement: Mild Bleeding Controlled with: Compression and gauze Patient tolerated procedure: Patient tolerated procedure well Post-Debridement Measurements and Additional Note: Post-Debridement Measurements/Treatment - Nurse 1 - General Ulcer Assessment Start: 09/29/21 10:05 Freq: Status: Active Protocol: ENRIQUETA.LOWKRISTIT Activity Type Activity Date Activity User E-Sign Co-Sign Detail Recorded Client Recorded Date Recorded By Document 09/29/21 10:06 BLU [id number] 09/29/21 10:12 BLU 09/29/21 10:06 - Today's Visit Information Type of service Initial Visit Arrival Mode Ambulatory, Crutches Patient Identification Verified (Name & Yes ) Vital Signs Temperature (97.8 F-99.1 F) 97.3 F L Temperature Source Temporal Pulse Rate (60-100) 91 Pulse Location Monitor Blood Pressure (90/60-120/80) 155/97 H Blood Pressure Mean 116 Source Monitor Position Sitting Blood Pressure Location Left Arm History Since Last Visit- (Skip if this is Patient's initial visit) Have you changed medications since your No last visit? Any new allergies or adverse reactions No Had a fall/change in ADL's that may No increase risk of falls Signs or symptoms of abuse and/or No neglect since last visit Have you been in the hospital since your No last visit? Has dressing in place as prescribed No Has compression in place as prescribed N/A Has offloadiing in place as prescribed N/A Experienced any changes in pain level or No management Pain Scale: 0-10 Numeric Is Patient Pain Free? Yes - Nurse 1 - General Ulcer Measurement Start: 09/29/21 10:05 Freq: Status: Active Protocol: Activity Type Activity Date Activity User E-Sign Co-Sign Detail Recorded Client Recorded Date Recorded By Document 09/29/21 10:06 KR [id number] 09/29/21 10:12 KR 09/29/21 10:06 Wound Center Nurse 1 #3 right Buttock -Current Size (cm) - Length 0.1 -Current Size (cm) - Width 0.1 -Current Size (cm) - Depth 0.1 -Total Square Cm 0.01 -Exudate Amt None Present -Wound Margin Distinct, Outline Attached -Granulation Amt None Present (0 %) -Necrosis Amt None Present (0 %) -Texture (Daxa-wound Skin Appearance) Assessed, Scarring -Moisture (Daxa-wound Skin Appearance) Assessed,Dry/ Scaly -Color (Daxa-wound Skin Appearance) No Abnormality, Assessed -Temperature (Daxa-wound Skin No Abnormality Appearance) (Pt Warm) -Tenderness on Palpation (Daxa-wound No Skin Appearance) -Ulcer Cleansing Rinsed/ Irrigated with Saline -Foul Odor after Cleansing No -Anesthetic Used 4% Lidocaine Solution - Nurse 2 - General Ulcer CM Notes Start: 09/29/21 10:05 Freq: Status: Active Protocol: Activity Type Activity Date Activity User E-Sign Co-Sign Detail Recorded Client Recorded Date Recorded By Document 09/29/21 10:23 MW [id number] 09/29/21 10:28 MW 09/29/21 10:23 Wound Center Nurse 2 -Time 10:24 -Correct Patient Yes -Correct Side, Site, Position Yes -Correct Procedure Yes -Procedure Performed Yes -Type of Procedure Debridement -Clinical Debridement Subcutaneous -Tissue Removed Subcutaneous -Post Debridement (cm) - Length 0.1 -Post Debridement (cm) - Width 0.1 -Post Debridement (cm) - Depth 0.1 -Total Square (Post) (cm) 0.01 -Area of Debridement (cm) - Length 0.1 -Area of Debridement (cm) - Width 0.1 -Total Square (Area) (cm) 0.01 -Tunneling No -Undermining/Tunneling No -Circular Undermining No -Wound/Ulcer Outcome Not Healed -Ulcer Cleansing Rinsed/ Irrigated with Saline -Foul Odor after Cleansing No -Bioengineered Tissue No -Bleeding Controlled with Pressure -Treatment Response Procedure Tolerated Well -Offloading No -Debridement - Subq, 1st 20sq cm Yes Pain Scale: 0-10 Numeric Is Patient Pain Free? Yes Assessment/Plan Assessment/Plan (1) Decubitus ulcer of right buttock, stage 2: CODE(S): L89.312 - Pressure ulcer of right buttock, stage 2 PLAN: Wash the area with antibacterial soap and water apply Aquacel extra to wound base and cover with an absorbent dressing. Also once she is healed close suggested using DuoDERM over the skin change weekly to keep the skin from reopening or callusing. Patient is to follow-up in 2 weeks
[2021-10-13 09:57] VITALS: BP 141/69; PULSE 96; TEMP 35.7
--- NOTE | 2021-10-13 10:20 | PN.PCM_ITS ---
History of Present Illness Date of Service: 10/13/21 Chief Complaint: Right buttock ulcer History of Wound: Ms. Hernandez is an 81yo pleasant lady who presented the wound center due to aright buttock ulcer. Initially noted about 3 years ago. Fell a couple of years ago in January and due to her injuries had become more sedentary. She has been using zinc on it and it calluses over and causes her pain. Today it is more of a callus that an open wound. Progress of Wound: Today the right buttocks is healed patient will be discharged from the wound center Subjective Subjective She is very happy that she is healed already after 3 years Objective Data Objective Data Skin is smooth we suggested she start using DuoDERM on her buttocks while its closed to protect her skin Also suggested she do some exercises that strengthen her butt cheeks muscles so she does not get these again Vital Signs: Vital Signs Temp Pulse BP 96.3 F L 96 141/69 H 10/13/21 09:57 10/13/21 09:57 10/13/21 09:57 Physical Exam Const oriented x3 General Appearance: cooperative Exam Limitations: no limitations Resp normal respiratory effort Effort and Inspection: able to speak in complete sentences Auscultation: clear to auscultation bilaterally Cardio regular rate and regular rhythm Palpation: normal PMI Rate: regular rate Rhythm: regular rhythm GI Auscultation: normoactive bowel sounds Palpation: soft and no hepatosplenomegaly external exam normal Back/Spine Cervical Spine: cervical ROM normal Thoracic Spine / Upper Back: normal to inspection Lumbar Spine / Lower Back: normal to inspection Extremity normal to inspection General Extremity: normal exam except as noted Skin no rashes or lesions noted Neuro oriented x3 Psych Appearance: grossly normal Speech: normal speech Thought Content: normal thought content Judgement: judgement good Debridement Note Debridement Note No debridement was completed: No debridement was completed today Post-Debridement Measurements and Additional Note: Post-Debridement Measurements/Treatment ENRIQUETA - Nurse 1 - General Ulcer Assessment Start: 09/29/21 10:05 Freq: Status: Active Protocol: JULISSA Activity Type Activity Date Activity User E-sign Co-sign Detail Recorded Client Recorded Date Recorded By Document 09/29/21 10:06 BLU [id number] 09/29/21 10:12 KR Document 10/13/21 09:57 BLU [id number] 10/13/21 09:59 KR 09/29/21 10/13/21 10:06 09:57 - Today's Visit Information Type of service Initial Visit Follow-up Visit (Physician/FRONT DESK MONITOR ) Arrival Mode Ambulatory, Ambulatory, Crutches Crutches Patient Identification Verified (Name & Yes Yes ) Vital Signs Temperature (97.8 F-99.1 F) 97.3 F L 96.3 F L Temperature Source Temporal Temporal Pulse Rate (60-100) 91 96 Pulse Location Monitor Monitor Blood Pressure (90/60-120/80) 155/97 H 141/69 H Blood Pressure Mean (mm Hg) 116 93 Source Monitor Monitor Position Sitting Semi-Fowlers Blood Pressure Location Left Arm Left Arm History Since Last Visit- (Skip if this is Patient's initial visit) Have you changed medications since your No No last visit? Any new allergies or adverse reactions No No Had a fall/change in ADL's that may No No increase risk of falls Signs or symptoms of abuse and/or No No neglect since last visit Have you been in the hospital since your No No last visit? Has dressing in place as prescribed No Yes Has compression in place as prescribed N/A Has offloadiing in place as prescribed N/A N/A Experienced any changes in pain level or No No management Left Footwear Other Footwear (Comment) Right Footwear Regular Shoe Pain Scale: 0-10 Numeric Is Patient Pain Free? Yes Yes - Nurse 1 - General Ulcer Measurement Start: 09/29/21 10:05 Freq: Status: Active Protocol: Activity Type Activity Date Activity User E-sign Co-sign Detail Recorded Client Recorded Date Recorded By Document 09/29/21 10:06 BLU [id number] 09/29/21 10:12 KR Document 10/13/21 09:57 BUL [id number] 10/13/21 09:59 BLU 09/29/21 10/13/21 10:06 09:57 Wound Center Nurse 1 #3 right Buttock -Current Size (cm) - Length 0.1 0.1 -Current Size (cm) - Width 0.1 0.1 -Current Size (cm) - Depth 0.1 0.1 -Total Square Cm 0.01 0.01 -Exudate Amt None Present None Present -Wound Margin Distinct, Distinct, Outline Outline Attached Attached -Granulation Amt None Present (0 Small (1-33%) %) -Granulation Quality [place] -Necrosis Amt None Present (0 None Present (0 %) %) -Texture (Daxa-wound Skin Appearance) Assessed, Assessed, Scarring Scarring -Moisture (Daxa-wound Skin Appearance) Assessed,Dry/ No Abnormality, Scaly Assessed -Color (Daxa-wound Skin Appearance) No Abnormality, No Abnormality, Assessed Assessed -Temperature (Daxa-wound Skin No Abnormality No Abnormality Appearance) (Pt Warm) (Pt Warm) -Tenderness on Palpation (Daxa-wound No No Skin Appearance) -Ulcer Cleansing Rinsed/ Rinsed/ Irrigated with Irrigated with Saline Saline -Foul Odor after Cleansing No No -Anesthetic Used 4% Lidocaine 5% Lidocaine Solution Gel WC - Nurse 2 - General Ulcer CM Notes Start: 09/29/21 10:05 Freq: Status: Active Protocol: Activity Type Activity Date Activity User E-sign Co-sign Detail Recorded Client Recorded Date Recorded By Document 09/29/21 10:23 MW [id number] 09/29/21 10:28 MW Document 10/13/21 10:10 MW [id number] 10/13/21 10:11 MW 09/29/21 10/13/21 10:23 10:10 Wound Center Nurse 2 #3 right Buttock -Time 10:24 10:11 -Correct Patient Yes Yes -Correct Side, Site, Position Yes Yes -Correct Procedure Yes Yes -Procedure Performed Yes No -Type of Procedure Debridement -Clinical Debridement Subcutaneous -Tissue Removed Subcutaneous -Post Debridement (cm) - Length 0.1 0 -Post Debridement (cm) - Width 0.1 0 -Post Debridement (cm) - Depth 0.1 0 -Total Square (Post) (cm) 0.01 0 -Area of Debridement (cm) - Length 0.1 -Area of Debridement (cm) - Width 0.1 -Total Square (Area) (cm) 0.01 -Tunneling No -Undermining/Tunneling No -Circular Undermining No -Wound/Ulcer Outcome Not Healed Healed- Epithelialized -Ulcer Cleansing Rinsed/ Irrigated with Saline -Foul Odor after Cleansing No -Bioengineered Tissue No -Bleeding Controlled with Pressure -Treatment Response Procedure Tolerated Well -Offloading No -Debridement - Subq, 1st 20sq cm Yes Pain Scale: 0-10 Numeric Is Patient Pain Free? Yes Yes - Nurse 3 - General Ulcer D/C NN Start: 09/29/21 10:05 Freq: Status: Active Protocol: Activity Type Activity Date Activity User E-sign Co-sign Detail Recorded Client Recorded Date Recorded By Document 09/29/21 14:51 KR [id number] 09/29/21 14:52 KR Document 10/13/21 10:12 MW [id number] 10/13/21 10:12 MW 09/29/21 10/13/21 14:51 10:12 Wound Care Nurse 3 #3 right Buttock -Ulcer Cleansing Rinsed/ Irrigated with Saline -Primary Dressing Applied Aquacel Extra, Mepilex Border -Aquacel Extra 1 -Mepilex Border 1 Treatment Response Procedure Tolerated Well Pain Scale: 0-10 Numeric Is Patient Pain Free? Yes Yes Teaching: Wound Center Discharge Instructions -Person Taught Patient -Teaching Method Discussion -Response to teaching Verbalize understanding WC - Visit Discharge Discharge Condition Stable Stable Ambulatory Status Ambulatory, Ambulatory, Crutches Crutches Transportation Private Auto Private Auto Accompanied by Medication Reconcilliation completed & No provided to patient/care provider Clinical Summary of Care Provided Yes Assessment/Plan Assessment/Plan (1) Decubitus ulcer of right buttock, stage 2: CODE(S): L89.312 - Pressure ulcer of right buttock, stage 2 PLAN: Pressure area resolved. Patient will be discharged from the wound center follow-up as needed Discussed using DuoDERM's that she has been sent to from us through her insurance to trial Suggested she only use it on closed skin not an open wound if the wound reopens she is to restart the dressing changes we had been using. Patient is in agreement and will follow-up as needed
== END 2021-10-15 11:55 | disposition home or self-care (01) ==
LOC: WC 10:00
PROVIDERS: PCP Internal Medicine; Visit Provider Nurse Practitioner
DX: L89.312 Pressure ulcer of right buttock, stage 2 (principal); Z79.82 Long term (current) use of aspirin; Z79.899 Other long term (current) drug therapy
CPT/HCPCS: 11042; 99212; 99213; G0463

== ENCOUNTER → 2021-11-30 | Outpatient (CLI) | payer MEDICARE, OTHER, SELFPAY ==
--- NOTE | 2021-11-30 10:22 | BI_ITS ---
MAMMOGRAPHY - BILATERAL SCREENING REASON FOR EXAM: Female, 81 years old. Routine annual screening examination. PERTINENT HISTORY: Sister with breast cancer. Remote left excisional breast biopsy. TECHNIQUE: Digital bilateral breast brad (3D mammographic acquisition) in the CC and MLO projections. 2-D mediolateral oblique (MLO) and craniocaudad (CC) views of both breasts were obtained. CAD: Full Field Digital Mammography with Computer Added Detection was performed. COMPARISON: Comparison is made with prior outside examination dated 11/16/2020. FINDINGS: Breast Composition: There are scattered areas of fibroglandular density. There are no dominant masses or suspicious calcifications. Stable 5.9 mm well-defined nodule in the anterior slightly upper lateral aspect of the right breast suggestive of a small lymph node. No other significant abnormalities are identified. There has been no significant change since the prior study. BI/SCRN MAMM (CAD)W/BRAD BILAT IMPRESSION: Stable bilateral screening mammogram. Yearly follow-up mammogram recommended. (A) ASSESSMENT CATEGORY: BIRADS Category 2: Benign. A letter regarding these results will be sent to the patient by the facility within 30 days. Approximately 10% of breast cancers are not detected by mammography. A normal mammogram should not delay biopsy of a clinically suspicious abnormality. [id number] Electronically Signed: Fredy Franco MD at 7:59 EDT ,
--- NOTE | 2021-11-30 10:27 | BD_ITS ---
STUDY: DUAL ENERGY X-RAY ABSORPTIOMETRY / DXA REASON FOR EXAM: Female, 81 years old. [id number]. Patient is postmenopausal. TECHNIQUE: Bone Mineral Density (BMD) measurements of lumbar spine and right hip were obtained. COMPARISON: Comparison is made with prior examination 11/28/2019. FINDINGS: Lumbar Spine (L1-L4): g/cm2 (0.793) / T-score (-2.3) / Z-score (0.5) Findings are suggestive of osteopenia with a high fracture risk. Right Femur Total: g/cm2 (0.738) / T-score (-1.7) / Z-score (0.5) Right Femoral Neck: g/cm2 (0.663) / T-score (-1.7) / Z-score (0.7) The T-Scores on the most recent prior examination were: Lumbar Spine (L1-L4): There has been improvement of bone density since the previous examination. Right Femur Total: which represents an improvement of 1.4%. BD/Dexa Bone Density Study IMPRESSION: The patient is considered osteopenic as outlined below according to World Josafat Organization (WHO) criteria with a high fracture risk. There has been improvement of bone density since the previous examination. Reference Information: The T-score is the number of standard deviations above or below the standard which is normal for young adults at their peak bone mineral density. The World Health Organization (WHO) interprets the T-scores as follows: Above -1 Normal bone density Between -1 and -2.5 Osteopenia Equal to / or below -2.5 Osteoporosis As a practical clinical guideline, osteopenia may be graded as follows: Mild -1 through -1.5 Moderate -1.6 through -2.0 Severe -2.1 through -2.4 The Z-score is the number of standard deviations above or below age-matched controls. A Z-score of less than -1.5 would be considered abnormal. References: 1. NIH Osteoporosis and Related Bone Diseases www osteo.org 2. International Society for Clinical Densitometry www iscd.org 3. National Osteoporosis Foundation www nof.org Electronically Signed: Fredy Franco MD at 15:28 EDT ,
== END | disposition home or self-care (01) ==
LOC: OPBD 10:19
PROVIDERS: PCP Internal Medicine; Visit Provider Internal Medicine
DX: Z13.820 Encounter for screening for osteoporosis (principal); Z78.0 Asymptomatic menopausal state; Z12.31 Encounter for screening mammogram for malignant neoplasm of breast; Z80.3 Family history of malignant neoplasm of breast
CPT/HCPCS: 77063; 77067; 77080

== ENCOUNTER → 2022-12-06 | Outpatient (CLI) | payer MEDICARE, OTHER, SELFPAY ==
--- NOTE | 2022-12-06 09:43 | BI_ITS ---
MAMMOGRAPHY - BILATERAL SCREENING REASON FOR EXAM: Female, 82 years old. Routine annual screening examination. PERTINENT HISTORY: Sister with breast cancer. Remote left excisional breast biopsy. TECHNIQUE: Digital bilateral breast brad (3D mammographic acquisition) in the CC and MLO projections. 2-D mediolateral oblique (MLO) and craniocaudad (CC) views of both breasts were obtained. CAD: Full Field Digital Mammography with Computer Added Detection was performed. COMPARISON: Comparison is made with prior examination November 30, 2021. FINDINGS: Breast Composition: There are scattered areas of fibroglandular density. There are no dominant masses or suspicious calcifications. Stable 5.9 mm well-defined nodule in the anterior slightly upper lateral aspect of the right breast No other significant abnormalities are identified. There has been no significant change since the prior study. BI/SCRN MAMM (CAD)W/BRAD BILAT IMPRESSION: Stable bilateral screening mammogram. Yearly follow-up mammogram recommended. (A) ASSESSMENT CATEGORY: BIRADS Category 2: Benign. A letter regarding these results will be sent to the patient by the facility within 30 days. Approximately 10% of breast cancers are not detected by mammography. A normal mammogram should not delay biopsy of a clinically suspicious abnormality. [id number] Electronically Signed: Fredy Franco MD at 11:04 EDT ,
== END | disposition home or self-care (01) ==
LOC: OPBI 09:40
PROVIDERS: PCP Internal Medicine; Referring Provider Clinical Nurse Specialist; Visit Provider Clinical Nurse Specialist
DX: Z12.31 Encounter for screening mammogram for malignant neoplasm of breast (principal); Z80.3 Family history of malignant neoplasm of breast
CPT/HCPCS: 77063; 77067

== ENCOUNTER → 2023-12-12 | Outpatient (CLI) | payer MEDICARE, OTHER, SELFPAY ==
--- NOTE | 2023-12-12 09:24 | BI_ITS ---
MAMMOGRAPHY - BILATERAL SCREENING REASON FOR EXAM: Female, 83 years old. Routine annual screening examination. PERTINENT HISTORY: Sister with breast cancer. History of left excisional breast biopsy. TECHNIQUE: Digital bilateral breast brad (3D mammographic acquisition) in the CC and MLO projections. 2-D mediolateral oblique (MLO) and craniocaudad (CC) views of both breasts were obtained. CAD: Full Field Digital Mammography with Computer Added Detection was performed. COMPARISON: Comparison is made with prior study December 06, 2022 and November 30, 2021. FINDINGS: Breast Composition: There are scattered areas of fibroglandular density. There are no dominant masses or suspicious calcifications. No other significant abnormalities are identified. There has been no significant change since the prior study. BI/SCRN MAMM (CAD)W/BRAD BILAT IMPRESSION: Stable bilateral screening mammogram. Yearly follow-up mammogram recommended. (A) ASSESSMENT CATEGORY: BIRADS Category 1: Negative. A letter regarding these results will be sent to the patient by the facility within 30 days. Approximately 10% of breast cancers are not detected by mammography. A normal mammogram should not delay biopsy of a clinically suspicious abnormality. [id number] Electronically Signed: Fredy Franco MD at 10:19 EDT ,
--- NOTE | 2023-12-12 09:24 | BD_ITS ---
STUDY: DUAL ENERGY X-RAY ABSORPTIOMETRY / DXA REASON FOR EXAM: Female, 83 years old. [id number] TECHNIQUE: Bone Mineral Density (BMD) measurements of lumbar spine and right hip were obtained. COMPARISON: Comparison is made with prior study November 30, 2021. FINDINGS: Lumbar Spine (L1-L4): g/cm2 (0.788) / T-score (-2.4) / Z-score (0.5) Findings are suggestive of osteopenia with a high fracture risk. Right Femur Total: g/cm2 (0.746) / T-score (-1.6) / Z-score (0.7) Right Femoral Neck: g/cm2 (0.660) / T-score (-1.7) / Z-score (0.8) The T-Scores on the most recent prior examination were: Lumbar Spine (L1-L4): There has been worsening of bone density since the previous examination. Right Femur Total: which represents an improvement of 1.1%. BD/Dexa Bone Density Study IMPRESSION: The patient is considered osteopenic as outlined below according to World [employer] Organization (WHO) criteria with a high fracture risk. There has been worsening of bone density since the previous examination. Reference Information: The T-score is the number of standard deviations above or below the standard which is normal for young adults at their peak bone mineral density. The World Health Organization (WHO) interprets the T-scores as follows: Above -1 Normal bone density Between -1 and -2.5 Osteopenia Equal to / or below -2.5 Osteoporosis As a practical clinical guideline, osteopenia may be graded as follows: Mild -1 through -1.5 Moderate -1.6 through -2.0 Severe -2.1 through -2.4 The Z-score is the number of standard deviations above or below age-matched controls. A Z-score of less than -1.5 would be considered abnormal. References: 1. NIH Osteoporosis and Related Bone Diseases www osteo.org 2. International Society for Clinical Densitometry www iscd.org 3. National Osteoporosis Foundation www nof.org Electronically Signed: Fredy Franco MD at 7:54 EDT ,
== END | disposition home or self-care (01) ==
LOC: OPBD 09:22
PROVIDERS: PCP Internal Medicine; Referring Provider Internal Medicine; Visit Provider Internal Medicine
DX: Z12.31 Encounter for screening mammogram for malignant neoplasm of breast (principal); M81.0 Age-related osteoporosis without current pathological fracture
CPT/HCPCS: 77063; 77067; 77080

== ENCOUNTER → 2024-12-30 | Outpatient (CLI) | payer MEDICARE, OTHER, SELFPAY ==
--- NOTE | 2024-12-30 14:42 | BI_ITS ---
EXAM: SCRN MAMM (CAD)W/BRAD BILAT DATE: 12/30/2024 CLINICAL HISTORY: F, Age 84 y/o , SCREENING Sister with breast cancer. History of prior left excisional breast biopsy. TECHNIQUE: Procedure Code: [id number] Modality: MG Procedure: SCRN MAMM (CAD)W/BRAD BILAT COMPARISON: Prior exam(s) dated December 12, 2023.. FINDINGS: TISSUE DENSITY: There are scattered areas of fibroglandular density. Bilateral Breast Mammographic Findings: No significant masses, calcifications or other abnormalities are identified. Stable bilateral vascular and secretory calcifications. No suspicious masses, areas of developing architectural distortion, or suspicious calcifications. There has been no significant interval change. BI/SCRN MAMM (CAD)W/BRAD BILAT IMPRESSION: Stable bilateral screening mammogram. OVERALL FINAL ASSESSMENT BI-RADS 2: BENIGN RECOMMENDATION: Routine annual follow-up in 1 Year A letter with findings and recommendations will be mailed to the patient. Reading Location: [facility]
--- OUTSIDE RECORDS SUMMARY | 2024-12-30 21:45 | XMS RPT_ITS | CCD ---
Author Organization [facility] Care Team Providers Care Book Jacket Cover Machine Operator Name Role Phone Laurence Martin MD Primary Care Provider Melinda LIMA MD, Alvaro Auguste Primary Care Provider Deborah Laurence Alfredo MD Primary Care Provider Lux ENVIRONMENTAL LEAD.SENIOR BUSINESS DEVELOPMENT MANAGER, Mago Unavailable Rosa ENVIRONMENTAL LEAD.DINING ROOM SUPERVISOR, Shai Unavailable Rosa ENVIRONMENTAL LEAD.DINING ROOM SUPERVISOR, Shai Unavailable Lux ENVIRONMENTAL LEAD.SENIOR BUSINESS DEVELOPMENT MANAGER, Mago Unavailable ROSA, SHAI Attending Unavailable TALAMPAS, LAURENCE D Primary Care Unavailable ROSA SHAI Referring Unavailable TALAMPAS, LAURENCE D Primary Care Unavailable BENDARAM, WALTER MILLS Attending Unavaila ble SELF Referring Unavailable TALAMPAS, LAURENCE D Primary Care Unavailable BENDARAM, WALTER MILLS Referring Unavaila ble TALAMPAS, LAURENCE D Primary Care Unavailable TALAMPAS, LAURENCE D Primary Care Unavailable TALAMPAS, LAURENCE D Attending Unavailable TALAMPAS, LAURENCE D Primary Care Unavailable Talampas, Laurence D Referring Unavailable Talampas, Laurence D Attending Unavailable Talampas, Laurence D Primary Care Unavailable Allergies Allergy Classification Reported Allergen(s) Allergy Type Date of Onset Reaction(s) Facility Amitriptyline (1 source) Amitriptyline Drug Allergy 02-25-2005 [facility] DULoxetine (1 source) DULoxetine Drug Allergy 02-25-2005 [facility] Work Phone: Niacin (1 source) Niacin Drug Allergy 02-25-2005 [facility] (20 sources) Amitriptyline; Translations: [AMITRIPTYLINE] Drug Allergy 02-25-2005 Other [facility] (20 sources) DULoxetine; Translations: [DULOXETINE] Drug Allergy 02-25-2005 [facility] Work Phone: (20 sources) Niacin; Translations: [NIACIN] Drug Allergy 02-25-2005 Rash [facility] (1 source) Amitriptyline Drug Allergy 08-15-2019 [facility] Rep[facility] Medications Current Medications Medication Drug Class(es) Dates Sig (Normalized) Sig (Original) aspirin 81 mg delayed release oral tablet (20 sources) Platelet Aggregation Inhibitor, Nonsteroidal Anti-inflammatory Drug Start: 04-09-2013 Aspirin (Ecotrin) 81 MG tablet,delayed release (DR/EC) Active 160 MG PO DAILY April 09, 2013 1:00am aspirin, enteric coated (ASPIRIN, ENTERIC COATED) 81 mg EC tablet Take 162 mg by mouth two times a day. Active aspirin, enteric coated (ASPIRIN, ENTERIC COATED) 81 mg EC tablet Take 162 mg by mouth once daily. 0 Active Comment on above: Take 162 mg by mouth once daily. Take 162 mg by mouth two times a day. CENTRUM SILVER TABLET (20 sources) Start: 4 CENTRUM SILVER TABLET Take (1) one tablet daily 0 09/17/2003 Active Comment on above: Take (1) one tablet daily cholecalciferol 0.05 mg oral capsule (20 sources) Vitamin D Start: 9 take 1 capsule by mouth once daily Cholecalciferol, Vitamin D3, 2,000 unit cap Take 1 capsule by mouth once daily. 12/14/2018 Active Comment on above: Take 1 capsule by [facility] once daily. docusate sodium 100 mg oral capsule (20 sources) Start: 3 take 2 capsules by mouth once daily Docusate Sodium (Colace) 100 MG capsule Active 200 MG PO DAILY April 09, 2013 1:00am Comment on above: Take two capsules by mouth once daily. 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 Do all this for 180 days. In addition to 600 mg dose. 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 Do all this for 90 days. In addition to 100 mg capsule. 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 In addition to 600 mg dose 180 capsule 3 10/06/2020 08/03/2021 Discontinued Start: 04-09-2013 take 600 mg by mouth three times daily Gabapentin Active 600 MG PO THREE TIMES A DAY April 09, 2013 1:00am Start: 04-09-2013 End: 12-28-2017 take 300 mg by mouth three times daily at mealtime Gabapentin Discontinued 300 MG PO 3 TIMES DAILY WITH MEALS April 09, 2013 1:00am December 28, 2017 11:40am Comment on above: Take 1 capsule by mo uth three times daily. In addition to 600 mg dose Take 2 capsules by m outh every morning AND 2 capsules every evening AND 3 capsules daily at bedtime. Do all this for 360 days. In addition to 100 mg capsule. Take 2 capsules by m outh every morning AND 2 capsules every evening AND 3 capsules daily at bedtime. Do all this for 360 days. Take 1 capsule by mo ut twice daily for 180 days. In addition to 600 mg dose Take 1 capsule by mo ut three times daily for 90 days. In addition to 600 mg dose Take 2 capsules by m outh every morning AND 2 capsules every evening AND 3 capsules daily at bedtime. Do all this for 90 days. In addition to 100 mg capsule. ibuprofen 200 mg oral tablet (17 sources) Nonsteroidal Anti-inflammatory Drug Start: 04-09-2013 End: 08-03-2021 take 200 mg by mouth every six hours as needed Ibuprofen Active 200 MG PO EVERY 6 HOURS NEEDED April 09, 2013 1:00am take 3 tablets by mo [facility] every six hours as needed ibuprofen (ADVIL) 200 mg tablet Take 600 mg by mouth every 6 hours as needed for pain. Active Comment on above: Take 200 mg by mouth every 6 hours as needed. lisinopril 10 mg oral tablet (20 sources) Angiotensin Converting Enzyme Inhibitor Start: 04-09-2013 End: 05-17-2024 take 1 tablet by mouth once daily lisinopril (ZESTRIL) 10 mg tablet Take 1 tablet by mouth once daily. 90 tablet 3 05/17/2024 Active Comment on above: TAKE 1 TABLET DAILY Take 1 tablet by [facility] once daily. lutein 6 mg oral tablet (20 sources) Start: 04-09-2013 take 6 mg by mouth once daily Lutein Active 6 MG PO DAILY April 09, 2013 1:00am Start: 09-17-2003 LUTEIN 6MG SOF TGEL Take one(1) tablet daily. 0 09/17/2003 Active Comment on above: Take one(1) tablet d aily. Ozuwduqf-Rvq-Od-Lycope n-Lutein (Centrum Silver Tablet) 1 EACH tablet (3 sources) Start: 04-09-20 13 take 1 tablet by mouth once daily Ahovoquc-Cur-Ve-Lycop en-Lutein (Centrum Silver Tablet) 1 EACH tablet Active 1 TABLET PO DAILY April 09, 2013 1:00am nitroglycerin 0.004 mg/mg rectal ointment (20 sources) Nitrate Vasodilator Start: 12-19-19 24 take 30 g rectal route twice daily as needed nitroglycerin 0.4 % (w/w) oint by RECTAL route two times a day as needed. 30 g 2 12/19/2023 Active Start: 08-09-2022 nitroglycerin ointment 0.2% (CPD) Indications: Rectal spasm by RECTAL route twice daily as needed. 30 g 1 08/09/2022 Active Start: 02-28-2022 End: 12-17-2023 take 30 g rectal route twice daily as needed nitroglycerin 0.4 % (w/w) oint by RECTAL route twice daily as needed. 30 g 2 08/09/2022 12/17/2023 Discontinued Start: 02-28-2022 End: 02-28-2022 take 1 dose rectal route twice daily as needed nitroglycerin 0.2% oint 1 Each by RECTAL route twice daily as needed. 30 g 2 02/28/2022 02/28/2022 Discontinued Start: 01-03-2008 End: 02-26-2022 NITROGLYCERIN 0.2% OINTMENT ([facility]) apply bid to perianal area prn anal pain 1 tube 0 01/03/2008 02/26/2022 Discontinued Start: 01-03-2008 NITROGLYCERIN 0.2% OINTMENT ([facility]) apply bid to perianal area prn anal pain 1 tube 0 01/03/2008 Active Comment on above: apply bid to periana l area prn anal pain by RECTAL route twic e daily as needed. [address]CTAL [address] te twice daily as needed. nystatin [id number] unt/ml topical cream (20 sources) Polyene Antifungal Start: 01-08-2024 End: 05-03-2024 nystatin (MYCOSTATIN) cream Apply 1 application to affected area two times a day. 30 g 1 05/03/2024 Active Start: 01-24-2021 End: 01-06-2024 nystatin (MYCOSTATIN) cream Apply 1 application to affected area two times a day. 30 g 1 2023 01/06/2024 Discontinued Comment on above: Apply 1 application to affected area twice daily. Apply 1 application to affected area two times a day. omeprazole 20 mg delayed release oral capsule (20 sources) Proton Pump Inhibitor Start: 12-29-19 End: 05-17-19 take 1 capsule by mouth once daily omeprazole (PRILOSEC) 20 mg capsule Take 1 capsule by mouth once daily. 90 capsule 3 05/17/2024 Active Comment on above: TAKE 1 CAPSULE DAILY Take 1 capsule by mo [facility] once daily. pentoxifylline 400 mg extended release oral tablet (20 sources) Blood Viscosity Bioinformatics Software Engineer Start: 04-09-20 13 End: 05-17-19 25 take 1 tablet by mouth twice daily pentoxifylline ER (TRENTAL) 400 mg CR tablet Indications: Pain in extremity, unspecified extremity Take 1 tablet by mouth two times a day. 180 tablet 3 05/17/2024 Active Comment on above: TAKE 1 TABLET TWICE A DAY [facility] two times a day. polyethylene glycol 3350 19313 mg powder for oral solution (20 sources) Osmotic Laxative Start: 11-28-19 polyethylene glycol 3350 (MIRALAX) 17 gram/dose powder Indications: Chronic constipation Take 17 g by mouth once daily. Mix with 8 ounces of liquid and allow sufficient time to dissolve. (1 capful equals 17 g), (Canister please) 510 g 5 11/27/2018 Active Start: 07-15-2017 take 17 g by mouth once daily Polyethylene Glycol 3350 Active 17 GM PO DAILY July 15, 2017 12:00am Comment on above: Take 17 g by mouth o nce daily. Mix with 8 ounces of liquid and allow sufficient time to dissolve. (1 capful equals 17 g), (Canister please) psyllium 3400 mg powder for oral suspension (3 sources) Start: 04-09-2013 Psyllium Husk (Aspartame) (Metamucil) 1 PACKET powder in packet Active 1 PACKET PO THREE TIMES A DAY April 09, 2013 1:00am PSYLLIUM SEED, WITH SUGAR, (METAMUCIL ORAL) (20 sources) PSYLLIUM SEED, W ITH SUGAR, (METAMUCIL ORAL) Take by mouth. 3 times daily Active PSYLLIUM SEED, W ITH SUGAR, (METAMUCIL ORAL) Take by mouth. 3 times daily 0 Active Comment on above: Take by mouth. 3 clarisa es daily verapamil hydrochloride 180 mg extended release oral tablet (20 sources) Calcium Channel Conner Start: 05-18-2021 End: 05-17-2024 take 1 tablet by mouth once daily at bedtime verapamil SR (CALAN SR) 180 mg CR tablet Take 1 tablet by mouth daily at bedtime. 90 tablet 3 05/17/2024 Active Start: 04-09-2013 take 180 mg by mouth once nicolasa y Verapamil Active 180 MG PO DAILY April 09, 2013 1:00am Comment on above: TAKE 1 TABLET DAILY AT BEDTIME Take 1 tablet by nusrat th daily at bedtime. vitamin e 268 mg oral capsule (20 sources) Start: 09-25-2008 VITAMIN E 400 UNIT CAP Take one(1) tablet twice daily. 100 0 09/25/2008 Active Start: 09-25-2008 take 400 [IU] by nusrat th twice daily Vitamin E (Dl, Acetate) Active 400 UNITS PO TWICE A DAY April 09, 2013 1:00am Comment on above: Take one(1) tablet t wice daily. Completed/Discontinued Medications Medication Drug Class(es) Dates Sig (Normalized) Sig (Original) amoxicillin 875 mg / clavulanate 125 mg oral tablet (1 source) Penicillin-class Antibacterial Start: 09-29-2023 End: 10-06-2023 take 1 tablet by mouth twice daily amoxicillin-clavul anate potassium (AUGMENTIN) 875-125 mg per tablet Take 1 tablet by mouth two times a day for 7 days. 14 tablet 0 09/29/2023 10/06/2023 Foam Bandage (OPTIFOAM) 4 X 4 bndg (5 sources) Start: 10-01-2020 End: 09-04-2022 Foam Bandage (OPTIFOAM) 4 X 4 bndg Indications: Skin ulcer, limited to breakdown of skin (HCC) Apply to affected area once daily. [id number] 90 Each 3 10/01/2020 09/04/2022 Discontinued Start: 10-01-2020 Foam Bandage ( OPTIFOAM) 4 X 4 bndg Indications: Skin ulcer, limited to breakdown of skin (HCC) Apply to affected area once daily. [id number] 90 Each 3 10/01/2020 Active Comment on above: Apply to affected ar ea once daily. 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 With food. 90 tablet 3 08/03/2021 03/05/2022 Discontinued Comment on above: Take 1 tablet by nusrat th once daily. With food. Miscellaneous Medical Supply (11 sources) Start: 11-11-19 End: 08-10-19 Miscellaneous Medical Supply Indications: Pressure injury of left hip, stage 1 Coloplast collagen hydrogel Disp: 9 oz Apply topically to pressure sore daily Refill: 3 3 Each 3 11/11/2019 08/09/2022 Discontinued Start: 11-11-2019 Miscellaneous Medical Supply Indications: Pressure injury of left hip, stage 1 Coloplast collagen hydrogel Disp: 9 oz Apply topically to pressure sore daily Refill: 3 3 Each 3 11/11/2019 Active Comment on above: Coloplast collagen h ydrogel Disp: 9 oz Apply topically to pressure sore daily Refill: 3 oxyCODONE hydrochloride 5 mg oral tablet (3 sources) Opioid Agonist Start: 9 End: 9 take 5 mg by mouth three times daily Oxycodone Discontinued 5 MG PO THREE TIMES A DAY 8 February 04, 2019 February 09, 2019 12:09am Problems Active Problems Problem Classification Problem Date Documented Da te Episodic/Chronic Anxiety disorders (20 sources) Anxiety; Translations: [Anxiety disorder, unspecified] Onset: 3 04-23-2013 Chronic Esophageal disorders (20 sources) Gastroesophageal reflux disease; Translations: [Gastro-esophageal reflux disease without esophagitis] Onset: 8 01-23-2008 Chronic Essential hypertension (20 sources) Benign essential hypertension; Translations: [Essential (primary) hypertension] Onset: 1 Chronic Genitourinary symptoms and ill-defined conditions (1 source) Stress incontinence (female) (male); Translations: [Stress incontinence, female] Chronic Genitourinary symptoms and ill-defined conditions (1 source) Urinary symptoms ; Translations: [Unspecified symptoms and signs involving the genitourinary system] 09-21-2023 Episodic Nonmalignant breast conditions (20 sources) Fibrocystic disease of breast; Translations: [Diffuse cystic mastopathy of unspecified breast] Onset: 7 04-25-2006 Chronic Nutritional deficiencies (20 sources) Vitamin D deficiency; Translations: [Vitamin D deficiency, unspecified] Onset: 7 Chronic Osteoporosis (20 sources) Osteoporosis; Translations: [Age-related osteoporosis without current pathological fracture] Onset: 7 10-17-2016 Chronic Other aftercare (1 source) Already on aspirin; 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] 06-13-2023 Episodic Other bone disease and musculoskeletal deformities (20 sources) History of left hip disarticulation; 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] Onset: 4 10-29-2023 Chronic Other circulatory disease (20 sources) Raynaud's disease; Translations: [Raynaud's syndrome without gangrene] Onset: 2 06-08-2011 Chronic Other connective tissue disease (3 sources) Pain in limb; Translations: [Pain in unspecified limb] Episodic Other gastrointestinal disorders (1 source) Diarrhea; Translations: [Diarrhea, unspecified] 01-12-2024 Episodic Other injuries and conditions due to external causes (1 source) Injury of elbow; Translations: [Unspecified injury of unspecified elbow, initial encounter] 08-18-2020 Episodic Other nervous system disorders (20 sources) Phantom pain following amputation of lower limb; Translations: [Phantom limb syndrome with pain] Onset: 6 Chronic Other nervous system disorders (1 source) Phantom limb syndrome with pain; Translations: [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)] Onset: 6 Chronic Other screening for suspected conditions (not mental disorders or infectious disease) (2 sources) Finding of thyroid gland; Translations: [Abnormal findings on diagnostic imaging of other specified body structures] 06-13-2023 Chronic Other screening for suspected conditions (not mental disorders or infectious disease) (9 sources) Patient encounter status; Translations: [Encounter for screening mammogram for malignant neoplasm of breast] Onset: 5 Episodic Residual codes; unclassified (1 source) Postmenopausal state; Translations: [Asymptomatic menopausal state] Episodic Spondylosis; intervertebral disc disorders; other back problems (20 sources) Lumbar arthritis; Translations: [Spondylosis without myelopathy or radiculopathy, lumbar region] Onset: 1 12-21-2010 Chronic Thyroid disorders (20 sources) Non-toxic multinodular goiter; Translations: [Nontoxic multinodular goiter] Onset: 7 07-28-2006 Chronic Urinary tract infections (1 source) Acute cystitis; Translations: [Acute cystitis without hematuria] 09-29-2023 Episodic Past or Other Problems Problem Classification Problem Date Documented Da te Episodic/Chronic Anal and rectal conditions (20 sources) Rectum finding; Translations: [Anal spasm] Onset: 01-03-2008 Resolved: 10-08-2017 Episodic Chronic ulcer of skin (20 sources) Pressure ulcer of buttock stage 2; Translations: [Pressure ulcer of right buttock, stage 2] Onset: 02-22-2019 Resolved: 04-19-2023 Chronic Fracture of upper limb (20 sources) Fracture of metacarpal bone; Translations: [Unspecified fracture of fifth metacarpal bone, left hand, initial encounter for closed fracture] Onset: 08-06-2012 Resolved: 11-24-2015 11-24-2015 Episodic Immunizations and screening for infectious disease (2 sources) Vaccination needed; Translations: [Encounter for immunization] Onset: 03-19-2024 02-10-2023 Episodic Neoplasms of unspecified nature or uncertain behavior (20 sources) Essential thrombocythemia; Translations: [Essential (hemorrhagic) thrombocythemia] Onset: 04-10-2008 Resolved: 04-19-2023 Chronic Neoplasms of unspecified nature or uncertain behavior (20 sources) 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, hematopoietic and related tissue; Translations: [Other lymphatic and hematopoietic tissues] Onset: 02-15-2007 Resolved: 04-19-2023 05-10-2007 Episodic Other aftercare (1 source) Encounter for therapeutic drug level monitoring; Translations: [Encounter for therapeutic drug monitoring] Onset: 09-17-2024 Episodic Other gastrointestinal disorders (20 sources) Drug-induced constipation; Translations: [Drug induced constipation] Onset: 02-22-2019 02-22-2019 Episodic Screening and history of mental health and substance abuse codes (1 source) Encounter for screening for depression; Translations: [Screening for depression] Onset: 03-19-2024 Episodic Sprains and strains (20 sources) Strain of tendon of medial thigh muscle; Translations: [Strain of adductor muscle, fascia and tendon of unspecified thigh, initial encounter] Onset: 02-22-2019 Resolved: 10-01-2020 10-01-2020 Episodic Superficial injury; contusion (20 sources) Contusion of hip; Translations: [Contusion of left hip, initial encounter] Onset: 02-22-2019 Resolved: 10-01-2020 08-15-2019 Episodic Unclassified (1 source) Patient encounter status 12-18-2024 Results Test Name Value Interpretation Reference Range Facility [facility] 12-18-2024 CNPN Telephone (INTMWS) EILEEN MCKINLEY ([id number]) 1940 F Date Time Provider Department 12/18/24 LAURENCE MARTIN INTWS During your visit today, we recorded the following information about you: Bobbi Tinoco RN 12/18/2024 9:52 AM Signed Patient calling and is asking for mammogram order to be placed and then faxed over to [facility]. Please review and advise, BRADLEY Dunlap Liza D, MD 12/18/2024 12:59 PM Signed Filed order Arlen Samuel LPN 12/18/2024 1:13 PM Signed Faxed to [facility]. Pt notified via my chart. Allergies As of Date: 12/18/2024 Noted Allergy Reaction AMITRIPTYLINE 02/25/2005 Comments: Dry mouth CYMBALTA (DULOXETINE) 02/25/2005 Comments: Dry mouth,diarrhea, blurred vision NIACIN 02/25/2005 2 - Rash Date Reviewed: 09/17/2024 Reviewed by: Shai Saxena APRN.DINING ROOM SUPERVISOR - Fully Assessed Reason for Visit: Orders [681] Cmt: Mammogram Primary Visit Diagnosis:Screening mammogram for breast cancer [Z12.31] Order(s):[facility] SCREENING [facility] [[id number]] Order #: [id number] FUTURE Prescriptions as of 12/18/2024 - gabapentin (NEURONTIN) 300 mg capsule Take 2 capsules by mouth three times a day for 180 days. In addition to 100 mg capsule - gabapentin (NEURONTIN) 100 mg capsule Take 1 capsule by mouth every morning AND 1-2 capsules every evening AND 1 capsule daily at bedtime. Do all this for 180 days. In addition to 600 mg dose. - lisinopril (ZESTRIL) 10 mg tablet Take 1 tablet by mouth once daily. - pentoxifylline ER (TRENTAL) 400 mg CR tablet Take 1 tablet by mouth two times a day. - verapamil SR (CALAN SR) 180 mg CR tablet Take 1 tablet by mouth daily at bedtime. - omeprazole (PRILOSEC) 20 mg capsule Take 1 capsule by mouth once daily. - nystatin (MYCOSTATIN) cream Apply 1 application to affected area two times a day. - ibuprofen (ADVIL) 200 mg tablet Take 600 mg by mouth every 6 hours as needed for pain. - nitroglycerin 0.4 % (w/w) oint by RECTAL route two times a day as needed. - nitroglycerin ointment 0.2% (CPD) by RECTAL route twice daily as needed. - Cholecalciferol, Vitamin D3, 2,000 unit cap Take 1 capsule by mouth once daily. - polyethylene glycol 3350 (MIRALAX) 17 gram/dose powder Take 17 g by mouth once daily. Mix with 8 ounces of liquid and allow sufficient time to dissolve. (1 capful equals 17 g), (Canister please) - aspirin, enteric coated (ASPIRIN, ENTERIC COATED) 81 mg EC tablet Take 162 mg by mouth two times a day. - PSYLLIUM SEED, WITH SUGAR, (METAMUCIL ORAL) Take by mouth. 3 times daily - docusate sodium (COLACE) 100 mg capsule Take two capsules by mouth once daily. - VITAMIN E 400 UNIT CAP Take one(1) tablet twice daily. - CENTRUM SILVER TABLET Take (1) one tablet daily - LUTEIN 6MG SOFTGEL Take one(1) tablet daily. 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 04/19/2023 Anal or rectal pain [K62.89] 01/03/2008 10/08/2017 ESOPHAGEAL REFLUX [K21.9] 01/23/2008 Essential thrombocythemia (HCC) [D47.3] 04/10/2008 04/19/2023 Essential hypertension, benign [I10] 12/21/2010 Arthritis, lumbar spine [M47.816] 12/21/2010 Raynaud's syndrome [I73.00] 06/08/2011 Fracture of fifth metacarpal bone of left hand *08/06/2012 11/24/2015 Anxiety [F41.9] 04/23/2013 Phantom pain following amputation of lower limb*11/24/2015 Vitamin D deficiency [E55.9] 09/10/2016 Skin ulcer, limited to breakdown of skin (HCC) *02/22/2019 04/19/2023 Constipation due to pain medication [K59.03] 02/22/2019 Groin strain [S76.219A] 02/22/2019 10/01/2020 Contusion of left wrist [S60.212A] 02/22/2019 10/01/2020 Contusion of left hip [S70.02XA] 02/22/2019 10/01/2020 History of disarticulation of left hip [Z89.622]10/29/2023 Encounter Status:Closed by ARLEN SAMUEL on 12/18/24 Normal [facility]3 [facility] 25-hydroxyvitamin D3 [Mass/Vol] 63.9 ng/mL Normal 31.0-80.0 [facility] Comment on above: Order Comment: Speci men Type: BLOOD SPECIMEN Ordering Facility: [facility] Address: [address] [place] [address] Result Comment: Clas sification of 25 [place] Vitamin D status: Deficiency/Insufficiency: < or = 30 ng/ml. Sufficiency/Optimal Levels: 31-80 ng/mL Toxicity: > 100 ng/mL. Test performed by chemiluminescent immunoassay. Performed By: #### 2 777-1, 57118-9, 87116-6 #### [facility] CLIA [id number] [address] [place], [place] [id number] [place] 25-hydroxyvitamin D3 [Mass/V ol]on 09-17-2024 Interpretation and review of laboratory results Normal [facility] The reference range interval was based on an analysis of samples from healthy adults and may not pertain to children from 0-18 years old. [facility] CBC W Auto Differential pane l (Bld)on 09-17-2024 Basophils (Bld) [#/Vol] 0.09 10*3/uL [facility] Basophils/100 WBC (Bld) 1.4 % [facility] Differential cell count method Nom (Bld) Auto [facility] Eosinophils (Bld) [#/Vol] 0.15 10*3/uL [facility] Eosinophils/100 WBC (Bld) 2.3 % [facility] Erythrocyte distribution width (RBC) [Ratio] 13.2 % 11.5 - 15.0 % [facility] Hematocrit (Bld) [Volume fraction] 37.9 % 36.0 - 46.0 % [facility] Hemoglobin (Bld) [Mass/Vol] 11.7 g/dL 11.5 - 15.5 g/dL [facility] Immature granulocytes (Bld) [#/Vol] 0.03 10*3/uL [facility] Immature granulocytes/100 WBC (Bld) 0.5 % [facility] Interpretation and review of laboratory results Abnormal [facility] Lymphocytes (Bld) [#/Vol] 1.86 10*3/uL [facility] Lymphocytes/100 WBC (Bld) 28.4 % [facility] MCH (RBC) [Entitic mass] 27.7 pg 26.0 - 34.0 pg [facility] MCHC (RBC) [Mass/Vol] 30.9 g/dL 30.5 - 36.0 g/dL [facility] MCV (RBC) [Entitic vol] 89.8 fL 80.0 - 100.0 fL [facility] Monocytes (Bld) [#/Vol] 0.43 10*3/uL NINF [facility] Monocytes/100 WBC (Bld) 6.6 % [facility] Neutrophils (Bld) [#/Vol] 3.98 10*3/uL [facility] Neutrophils/100 WBC (Bld) 60.8 % [facility] Nucleated RBC (Bld) [#/Vol] NINF [facility] Nucleated RBC/100 WBC (Bld) [Ratio] 0 % /100 WBC [facility] Platelet mean volume (Bld) [Entitic vol] 9 fL 9.0 - 12.7 fL [facility] Platelets (Bld) [#/Vol] 442 10*3/uL High [facility] RBC (Bld) [#/Vol] 4.22 10*6/uL 3.90 - 5.2 0 m/uL [facility] WBC (Bld) [#/Vol] 6.54 10*3/uL [facility] Basophils (Bld) [#/Vol] 0.09 10*3/uL Normal <0.11 [facility] Comment on above: Order Comment: Speci men Type: BLOOD SPECIMEN Ordering Facility: [facility] Address: [address] [place] [address] Performed By: #### 2 777-1, 76726-3, #### [id number] [address] [place] [address] [place] Basophils/100 WBC (Bld) 1.4 % Normal [facility] Comment on above: Order Comment: Speci men Type: BLOOD SPECIMEN Ordering Facility: [facility] Address: [address] [place] [address] Performed By: #### 2 777-1, 21275-5, #### [facility] CLIA [id number] [address] [place] [address] [place] Differential cell count method Nom (Bld) Auto Normal [facility] Comment on above: Order Comment: Speci men Type: BLOOD SPECIMEN Ordering Facility: [facility] Address: [address] [place] [address] Performed By: #### 2 777-1, 94404-9, #### [facility] CLIA [id number] [address] [place] [address] [place] Eosinophils (Bld) [#/Vol] 0.15 10*3/uL Normal <0.46 [facility] Comment on above: Order Comment: Speci men Type: BLOOD SPECIMEN Ordering Facility: [facility] Address: [address] [place] [address] Performed By: #### 2 777-1, 54581-8, #### [facility] CLIA [id number] [address] [place] [address] [place] Eosinophils/100 WBC (Bld) 2.3 % Normal [facility] Comment on above: Order Comment: Speci men Type: BLOOD SPECIMEN Ordering Facility: [facility] Address: [address] [place], [place] [address] Performed By: #### 2 777-1, 02285-2, #### [facility] CLIA [id number] [address] [place] [address] [place] Erythrocyte distribution width (RBC) [Ratio] 13.2 % Normal 11.5-15.0 [facility] Comment on above: Order Comment: Speci men Type: BLOOD SPECIMEN Ordering Facility: [facility] Address: [address] [place], [place] [address] Performed By: #### 2 777-1, 51686-4, #### [facility] CLIA [id number] [address] [place] [address] [place] Hematocrit (Bld) [Volume fraction] 37.9 % Normal 36.0-46.0 [facility] Comment on above: Order Comment: Speci men Type: BLOOD SPECIMEN Ordering Facility: [facility] Address: [address] [place], [place] [address] Performed By: #### 2 777-1, 77041-6, #### [facility] CLIA [id number] [address] [place] [address] [place] Hemoglobin (Bld) [Mass/Vol] 11.7 g/dL Normal 11.5-15.5 [facility] Comment on above: Order Comment: Speci men Type: BLOOD SPECIMEN Ordering Facility: [facility] Address: [address] [place], [place] [address] Performed By: #### 2 777-1, 16469-9, #### [facility] CLIA [id number] [address] [place] [address] [place] Immature granulocytes (Bld) [#/Vol] 0.03 10*3/uL Normal <0.10 [facility] Comment on above: Order Comment: Speci men Type: BLOOD SPECIMEN Ordering Facility: [facility] Address: [address] [place] [address] Performed By: #### 2 777-1, 10290-6, #### [facility] CLIA [id number] [address] [place] [address] [place] Immature granulocytes/100 WBC (Bld) 0.5 % Normal [facility] Comment on above: Order Comment: Speci men Type: BLOOD SPECIMEN Ordering Facility: [facility] Address: [address] [place], [place] [address] Performed By: #### 2 777-1, 35481-5, #### [facility] CLIA [id number] [address] [place] [address] [place] Lymphocytes (Bld) [#/Vol] 1.86 10*3/uL Normal 1.00-4.00 [facility] Comment on above: Order Comment: Speci men Type: BLOOD SPECIMEN Ordering Facility: [facility] Address: [address] [place], [place] [address] Performed By: #### 2 777-1, 64114-0, #### [facility] CLIA [id number] [address] [place] [address] [place] Lymphocytes/100 WBC (Bld) 28.4 % Normal [facility] Comment on above: Order Comment: Speci men Type: BLOOD SPECIMEN Ordering Facility: [facility] Address: [address] [place] [address] Performed By: #### 2 777-1, 05822-5, #### [facility] CLIA [id number] [address] [place] [address] [place] MCH (RBC) [Entitic mass] 27.7 pg Normal 26.0-34.0 [facility] Comment on above: Order Comment: Speci men Type: BLOOD SPECIMEN Ordering Facility: [facility] Address: [address] [place] [address] Performed By: #### 2 777-1, 18710-2, #### [facility] CLIA [id number] [address] [place] [address] [place] MCHC (RBC) [Mass/Vol] 30.9 g/dL Normal 30.5-36.0 [facility] Comment on above: Order Comment: Speci men Type: BLOOD SPECIMEN Ordering Facility: [facility] Address: [address] [place] [address] Performed By: #### 2 777-1, 03413-3, #### [facility] CLIA [id number] [address] [place] [address] [place] MCV (RBC) [Entitic vol] 89.8 fL Normal 80.0-100.0 [facility] Comment on above: Order Comment: Speci men Type: BLOOD SPECIMEN Ordering Facility: [facility] Address: [address] [place] [address] Performed By: #### 2 777-1, , #### [facility] CLIA [id number] [address] [place] [address] [place] Monocytes (Bld) [#/Vol] 0.43 10*3/uL Normal <0.87 [facility] Comment on above: Order Comment: Speci men Type: BLOOD SPECIMEN Ordering Facility: [facility] Address: [address] [place] [address] Performed By: #### 2 777-1, , #### [facility] CLIA [id number] [address] [place] [address] [place] Monocytes/100 WBC (Bld) 6.6 % Normal [facility] Comment on above: Order Comment: Speci men Type: BLOOD SPECIMEN Ordering Facility: [facility] Address: [address] [place] [address] Performed By: #### 2 777-1, , #### [facility] CLIA [id number] [address] [place] [address] [place] Neutrophils (Bld) [#/Vol] 3.98 10*3/uL Normal 1.45-7.50 [facility] Comment on above: Order Comment: Speci men Type: BLOOD SPECIMEN Ordering Facility: [facility] Address: [address] [place] [address] Performed By: #### 2 777-1, , #### [facility] CLIA [id number] [address] [place] [address] [place] Neutrophils/100 WBC (Bld) 60.8 % Normal [facility] Comment on above: Order Comment: Speci men Type: BLOOD SPECIMEN Ordering Facility: [facility] Address: [address] [place] [address] Performed By: #### 2 777-1, , #### [facility] CLIA [id number] [address] [place] [address] [place] Nucleated RBC (Bld) [#/Vol] 10*3/uL Normal <0.01 [facility] Comment on above: Order Comment: Speci men Type: BLOOD SPECIMEN Ordering Facility: [facility] Address: [address] [place] [address] Performed By: #### 2 777-1, 39203-6, 15305-0 #### [facility] CLIA [id number] [address] [place] [address] [place] Nucleated RBC/100 WBC (Bld) [Ratio] 0.0 /100 WBC Normal [facility] Comment on above: Order Comment: Speci men Type: BLOOD SPECIMEN Ordering Facility: [facility] Address: [address] [place] [address] Performed By: #### 2 777-1, 23526-0, #### [facility] CLIA [id number] [address] [place] [address] [place] Platelet mean volume (Bld) [Entitic vol] 9.0 fL Normal 9.0-12.7 [facility] Comment on above: Order Comment: Speci men Type: BLOOD SPECIMEN Ordering Facility: [facility] Address: [address] [place] [address] Performed By: #### 2 777-1, 78195-6, #### [facility] CLIA [id number] [address] [place] [address] [place] Platelets (Bld) [#/Vol] 442 10*3/uL High 150-400 [facility] Comment on above: Order Comment: Speci men Type: BLOOD SPECIMEN Ordering Facility: [facility] Address: [address] [place] [address] Performed By: #### 2 777-1, 38045-0, 72261-3 #### [facility] CLIA [id number] [address] [place] [address] [place] RBC (Bld) [#/Vol] 4.22 10*6/uL Normal 3.90-5.20 [facility] Comment on above: Order Comment: Speci men Type: BLOOD SPECIMEN Ordering Facility: [facility] Address: [address] [place] [address] Performed By: #### 2 777-1, 67583-9, 61457-6 #### [facility] CLIA [id number] [address] [place] [address] [place] WBC (Bld) [#/Vol] 6.54 10*3/uL Normal 3.70-11.00 [facility] Comment on above: Order Comment: Speci men Type: BLOOD SPECIMEN Ordering Facility: [facility] Address: [address] [place] [address] Performed By: #### 2 777-1, 00020-5, 35548-8 #### [facility] CLIA [id number] [address] [place] [address] [place] CNOVon 09-17-2024 CNOV Office Visit (INTMWS ) ELÍASEILEEN ([id number]) 1940 F Date Time Provider Department 09/17/24 1:00 PM SHAI SAXENA INTMWS During your visit today, we recorded the following information about you: Pulse Blood pressure Weight 79/minute 110/50 54.2 kg Shai Saxena APRN.DINING ROOM SUPERVISOR 09/17/2024 2:48 PM Signed SUBJECTIVE Eileen Mancia Elías is a 84 year old female here today for a check up on her medical problems. Chief Complaint Patient presents with: F/U 6 months HPI Eileen Mckinley is a 84 year old female. She is an established patient of Laurence Martin MD. Here today for a 6 month follow up. Overall doing okay, concerned about her husbands health. Sleep is okay. Pain is about the same, manageable. Blood pressure is controlled. No recent GERD issues. Due for blood work. Her medications were reviewed today and her list is now up to date. Medications Current Outpatient Medications Medication Sig gabapentin (NEURONTIN) 300 mg capsule Take 2 capsules by mouth three times a day for 180 days. In addition to 100 mg capsule gabapentin (NEURONTIN) 100 mg capsule Take 1 capsule by mouth every morning AND 1-2 capsules every evening AND 1 capsule daily at bedtime. Do all this for 180 days. In addition to 600 mg dose. lisinopril (ZESTRIL) 10 mg tablet Take 1 tablet by mouth once daily. pentoxifylline ER (TRENTAL) 400 mg CR tablet Take 1 tablet by mouth two times a day. verapamil SR (CALAN SR) 180 mg CR tablet Take 1 tablet by mouth daily at bedtime. omeprazole (PRILOSEC) 20 mg capsule Take 1 capsule by mouth once daily. nystatin (MYCOSTATIN) cream Apply 1 application to affected area two times a day. ibuprofen (ADVIL) 200 mg tablet Take 600 mg by mouth every 6 hours as needed for pain. nitroglycerin 0.4 % (w/w) oint by RECTAL route two times a day as needed. nitroglycerin ointment 0.2% (CPD) by RECTAL route twice daily as needed. Cholecalciferol, Vitamin D3, 2,000 unit cap Take 1 capsule by mouth once daily. polyethylene glycol 3350 (MIRALAX) 17 gram/dose powder Take 17 g by mouth once daily. Mix with 8 ounces of liquid and allow sufficient time to dissolve. (1 capful equals 17 g), (Canister please) aspirin, enteric coated (ASPIRIN, ENTERIC COATED) 81 mg EC tablet Take 162 mg by mouth two times a day. PSYLLIUM SEED, WITH SUGAR, (METAMUCIL ORAL) Take by mouth. 3 times daily docusate sodium (COLACE) 100 mg capsule Take two capsules by mouth once daily. VITAMIN E 400 UNIT CAP Take one(1) tablet twice daily. CENTRUM SILVER TABLET Take (1) one tablet daily LUTEIN 6MG SOFTGEL Take one(1) tablet daily. No current facility-administered medications for this visit. 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 Respiratory: Negative. Cardiovascular: Negative. OBJECTIVE BP 110/50 Pulse 79 Wt 119 lb 7.8 oz (54.2kg) SpO2 97% Physical Exam Vitals and nursing note reviewed. Constitutional: General: She is awake. She is not in acute distress. Appearance: Normal appearance. She is well-developed and well-groomed. She is not ill-appearing, toxic-appearing or diaphoretic. HENT: Head: Normocephalic. Right Ear: External ear normal. Left Ear: External ear normal. Nose: Nose normal. Eyes: General: Vision grossly intact. Conjunctiva/sclera: Conjunctivae normal. Pupils: Pupils are equal, round, and reactive to light. Neck: Vascular: No JVD. Trachea: Trachea normal. Cardiovascular: Rate and Rhythm: Normal rate and regular rhythm. Pulses: Normal pulses. Heart sounds: Normal heart sounds. No murmur heard. Pulmonary: Effort: Pulmonary effort is normal. No accessory muscle usage, prolonged expiration or respiratory distress. Breath sounds: Normal breath sounds. Musculoskeletal: Cervical back: Neck supple. Skin: General: Skin is warm and dry. Capillary Refill: Capillary refill takes less than 2 seconds. Neurological: General: No focal deficit present. Mental Status: She is alert and oriented to person, place, and time. Mental status is at baseline. Psychiatric: Atte (more content not included)... Normal [facility] Comprehensive metabolic 2000 panelon 09-17-2024 Albumin [Mass/Vol] 4 g/dL 3.9 - 4.9 g/dL [facility] ALP [Catalytic activity/Vol] 81 U/L 34 - 123 U/L [facility] ALT [Catalytic activity/Vol] 10 U/L 7 - 38 U/L [facility] Anion gap [Moles/Vol] 12 mmol/L 8 - 15 mmol/L [facility] AST [Catalytic activity/Vol] 18 U/L 13 - 35 U/L [facility] Bilirubin [Mass/Vol] 0.2 mg/dL 0.2 - 1 .3 mg/dL [facility] Calcium [Mass/Vol] 9.8 mg/dL 8.5 - 10. 2 mg/dL [facility] Chloride [Moles/Vol] 106 mmol/L 98 - 10 7 mmol/L [facility] CO2 [Moles/Vol] 25 mmol/L 22 - 30 mmol/L [facility] Creatinine [Mass/Vol] 0.9 mg/dL 0.58 - 0.96 mg/dL [facility] GFR/1.73 sq M.predicted among non-blacks MDRD (S/P/Bld) [Vol rate/Area] 63 mL/min/{1.73_m2} - PINF [facility] Comment on above: Estimated Glomerular Filtration Rate (eGFR) is calculated using the 2020 CKD-EPI creatinine equation. This equation utilizes serum creatinine, sex, and age as parameters. The creatinine assay has traceable calibration to isotope dilution-mass spectrometry. Refer to KDIGO guidelines for clinical interpretation. In patients with unstable renal function, e.g. those with acute kidney injury, the eGFR may not accurately reflect actual GFR. Glucose [Mass/Vol] 91 mg/dL 74 - 99 mg/dL [facility] Comment on above: The [place] Diabete s Association (ADA) provides guidance for cutoff values for fasting glucose and random glucose. The ADA defines fasting as no caloric intake for at least 8 hours. Fasting plasma glucose results between 100 to 125 mg/dL indicate increased risk for diabetes (prediabetes). Fasting plasma glucose results greater than or equal to 126 mg/dL meet the criteria for diagnosis of diabetes. In the absence of unequivocal hyperglycemia, results should be confirmed by repeat testing. In a patient with classic symptoms of hyperglycemia or hyperglycemic crisis, random plasma glucose results greater than or equal to 200 mg/dL meet the criteria for diagnosis of diabetes. Reference: Standards of Medical Care in Diabetes 2016, [place] [employer] Association. Diabetes Care. 2016.39(Suppl 1). Potassium [Moles/Vol] 4.5 mmol/L 3.7 - 5.1 mmol/L [facility] Protein [Mass/Vol] 7 g/dL 6.3 - 8.0 g/dL [facility] Sodium [Moles/Vol] 143 mmol/L 136 - 144 mmol/L [facility] Urea nitrogen [Mass/Vol] 15 mg/dL 7 - 21 mg/dL [facility] Albumin [Mass/Vol] 4.0 g/dL Normal 3.9-4.9 [facility] Comment on above: Order Comment: Clarice rodriguez Type: BLOOD SPECIMEN Ordering Facility: [facility] Address: [address] [place] [address] Performed By: #### 2 777-1, , #### [facility] CLIA [id number] [address] [place] [address] [place] ALP [Catalytic activity/Vol] 81 U/L Normal 34-123 [facility] Comment on above: Order Comment: Clarice rodriguez Type: BLOOD SPECIMEN Ordering Facility: [facility] Address: [address] [place], [place] [address] Performed By: #### 2 777-1, , #### [facility] CLIA [id number] [address] [place] [address] [place] ALT [Catalytic activity/Vol] 10 U/L Normal 7-38 [facility] Comment on above: Order Comment: Clarice rodriguez Type: BLOOD SPECIMEN Ordering Facility: [facility] Address: [address] [place] [address] Performed By: #### 2 777-1, 23248-4, #### [facility] CLIA [id number] [address] [place] [address] [place] Anion gap [Moles/Vol] 12 mmol/L Normal 8-15 [facility] Comment on above: Order Comment: Speci men Type: BLOOD SPECIMEN Ordering Facility: [facility] Address: [address] [place] [address] Performed By: #### 2 777-1, 07893-4, #### [facility] CLIA [id number] [address] [place] [address] [place] AST [Catalytic activity/Vol] 18 U/L Normal 13-35 [facility] Comment on above: Order Comment: Speci men Type: BLOOD SPECIMEN Ordering Facility: [facility] Address: [address] [place] [address] Performed By: #### 2 777-1, 70566-8, #### [facility] CLIA [id number] [address] [place] [address] [place] Bilirubin [Mass/Vol] 0.2 mg/dL Normal 0.2-1.3 [facility] Comment on above: Order Comment: Speci men Type: BLOOD SPECIMEN Ordering Facility: [facility] Address: [address] [place] [address] Performed By: #### 2 777-1, 12123-5, #### [facility] CLIA [id number] [address] [place] [address] [place] Calcium [Mass/Vol] 9.8 mg/dL Normal 8.5-10.2 [facility] Comment on above: Order Comment: Speci men Type: BLOOD SPECIMEN Ordering Facility: [facility] Address: [address] [place] [address] Performed By: #### 2 777-1, 67053-3, 45011-4 #### [facility] CLIA [id number] [address] [place] [address] [place] Chloride [Moles/Vol] 106 mmol/L Normal 98-107 [facility] Comment on above: Order Comment: Speci men Type: BLOOD SPECIMEN Ordering Facility: [facility] Address: [address] [place], [place] [address] Performed By: #### 2 777-1, 50845-2, 04903-6 #### [facility] CLIA [id number] [address] [place] [address] [place] CO2 [Moles/Vol] 25 mmol/L Normal 22-30 [facility] Comment on above: Order Comment: Speci men Type: BLOOD SPECIMEN Ordering Facility: [facility] Address: [address] [place] [address] Performed By: #### 2 777-1, 59778-1, 09884-4 #### [facility] CLIA [id number] [address] [place] [address] STATES OF [facility] Creatinine [Mass/Vol] 0.90 mg/dL Normal 0.58-0.96 [facility] Comment on above: Order Comment: Speci men Type: BLOOD SPECIMEN Ordering Facility: [facility] Address: [address] [place] [address] Performed By: #### 2 777-1, 74034-9, #### [facility] CLIA [id number] [address] [place] [address] OF [facility] Creatinine and Glomerular filtration rate.predicted panel (S/P/Bld) 63 mL/min/1.73m??? Normal >=60 [facility] Comment on above: Order Comment: Speci men Type: BLOOD SPECIMEN Ordering Facility: [facility] Address: [address] [place], [place] [id number] Result Comment: Marti mated Glomerular Filtration Rate (eGFR) is calculated using the 2020 CKD-EPI creatinine equation. This equation utilizes serum creatinine, sex, and age as parameters. The creatinine assay has traceable calibration to isotope dilution-mass spectrometry. Refer to KDIGO guidelines for clinical interpretation. In patients with unstable renal function, e.g. those with acute kidney injury, the eGFR may not accurately reflect actual GFR. Performed By: #### 2 777-1, , #### [facility] CLIA [id number] [address] [place] [address] [place] Glucose [Mass/Vol] 91 mg/dL Normal 74-99 [facility] Comment on above: Order Comment: Clarice rodriguez Type: BLOOD SPECIMEN Ordering Facility: [facility] Address: [address] [place] [address] Result Comment: The [place] Diabetes [employer] (ADA) provides guidance for cutoff values for fasting glucose and random glucose. The ADA defines fasting as no caloric intake for at least 8 hours. Fasting plasma glucose results between 100 to 125 mg/dL indicate increased risk for diabetes (prediabetes). Fasting plasma glucose results greater than or equal to 126 mg/dL meet the criteria for diagnosis of diabetes. In the absence of unequivocal hyperglycemia, results should be confirmed by repeat testing. In a patient with classic symptoms of hyperglycemia or hyperglycemic crisis, random plasma glucose results greater than or equal to 200 mg/dL meet the criteria for diagnosis of diabetes. Reference: Standards of Medical Care in Diabetes 2016, [place] [employer] Association. Diabetes Care. 2016.39(Suppl 1). Performed By: #### 2 777-1, , #### [facility] CLIA [id number] [address] [place] [id number] [place] Potassium [Moles/Vol] 4.5 mmol/L Normal 3.7-5.1 [facility] Comment on above: Order Comment: Clarice rodriguez Type: BLOOD SPECIMEN Ordering Facility: [facility] Address: [address] [place] [address] Performed By: #### 2 777-1, , #### [facility] CLIA [id number] [address] [place] [address] [place] Protein [Mass/Vol] 7.0 g/dL Normal 6.3-8.0 [facility] Comment on above: Order Comment: Speci men Type: BLOOD SPECIMEN Ordering Facility: [facility] Address: [address] [place] [address] Performed By: #### 2 777-1, , #### [facility] CLIA [id number] [address] [place] [address] [place] Sodium [Moles/Vol] 143 mmol/L Normal 136-144 [facility] Comment on above: Order Comment: Speci men Type: BLOOD SPECIMEN Ordering Facility: [facility] Address: [address] [place] [address] Performed By: #### 2 777-1, , #### [facility] CLIA [id number] [address] [place] [address] [place] Urea nitrogen [Mass/Vol] 15 mg/dL Normal 7-21 [facility] Comment on above: Order Comment: Speci men Type: BLOOD SPECIMEN Ordering Facility: [facility] Address: [address] [place] [address] Performed By: #### 2 777-1, , #### [facility] CLIA [id number] [address] [place] [address] [place] MAGNESIUMon 09-17-2024 Magnesium [Mass/Vol] 1.9 mg/dL 1.7 - 2 .3 mg/dL [facility] Magnesium SerPl-mCncon 09-17 Magnesium [Mass/Vol] 1.9 mg/dL Normal 1.7-2.3 [facility] Comment on above: Order Comment: Speci men Type: BLOOD SPECIMEN Ordering Facility: [facility] Address: [address] [place] [address] Performed By: #### 2 777-1, , #### [facility] CLIA [id number] [address] [place] [address] [place] No Panel Informationon 09-17 Interpretation and review of laboratory results Normal [facility] VITAMIN D 25 HYDROXYon 09-17 25-hydroxyvitamin D3 [Mass/Vol] 63.9 ng/mL 31.0 - 80.0 ng/mL [facility] Comment on above: Classification of 25 [place] Vitamin D status: Deficiency/Insufficiency: < or = 30 ng/ml. Sufficiency/Optimal Levels: 31-80 ng/mL Toxicity: > 100 ng/mL. Test performed by chemiluminescent immunoassay. CNOVon 03-19-2024 CNOV Office Visit (INTMWS ) EILEEN MCKINLEY ([id number]) 1940 F Date Time Provider Department 03/19/24 9:20 AM LAURENCE MARTIN INTMWS During your visit today, we recorded the following information about you: Temperature Pulse Respiration Blood pressure 99.1 degrees 93/minute 18/minute 122/68 Weight 56.2 kg Laurence Martin MD 03/19/2024 10:44 AM Signed This note was created using [employer]. Subjective Eileen Mckinley is a 83 year old female. Patient presents with: F/U 6 months SUBJECTIVE: Eileen Mckinley is a 83 year old year old lady here today for 6 month follow up appointment for review of medical conditions. Eileen Mckinley is an 83-year-old female, with a history of osteoporosis, presenting for a 6-month follow-up. Eileen reports recent bone density results from November 2023, showing a 1.1% improvement in the right femur but worsening in the lumbar spine compared to the November 30, 2021, bone density. The lumbar spine T-score was -2.4, Z-score 0.5; right femur total T-score -1.6, Z-score 0.7; and right femur neck T-score -1.7, Z-score 0.8. 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 Guadalupe, reviewed these results and advised a follow-up in April to recheck calcium and bone-related tests. If the results are not satisfactory, Dr. Guadalupe suggested starting Fosamax. Eileen has a history of taking Fosamax post-menopause but discontinued it due to dental work concerns. She plans to see her dentist next month for a tooth issue before her follow-up with Dr. Guadalupe in April. Eileen inquires about AlgaeCal, an bcei-rwp-ndqwuvx calcium supplement recommended by her daughter, but is informed that calcium alone will not build bones. She is advised on the importance of weight-bearing exercises to improve bone density. She also mentions a previous bone density test in 2018 at a [facility] site and is considering where to have future tests for consistency. Eileen is currently taking gabapentin 600 mg in the morning and evening, and 900 mg at bedtime, but often adds an extra 100 mg, totaling 700 mg in the morning and evening. She reports that her pain has worsened over time, attributing it to aging bones. She also mentions upcoming cataract surgery scheduled for April [address] Boyer and discusses her options for post-surgery vision correction. She denies any swelling and reports stable blood pressure readings in the 120s/60s. 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 Do all this for 180 days. In addition to 600 mg dose. ibuprofen (ADVIL) 200 mg tablet Take 600 mg by mouth every 6 hours as needed for pain. nystatin (MYCOSTATIN) cream Apply 1 application to affected area two times a day. nitroglycerin 0.4 % (w/w) oint by RECTAL route two times a day as needed. gabapentin (NEURONTIN) 300 mg capsule Take 2 capsules by mouth every morning AND 2 capsules every evening AND 3 capsules daily at bedtime. Do all this for 90 days. In addition to 100 mg capsule. lisinopril (ZESTRIL) 10 mg tablet Take 1 tablet by mouth once daily. pentoxifylline ER (TRENTAL) 400 mg CR tablet Take 1 tablet by mouth two times a day. verapamil SR (CALAN SR) 180 mg CR tablet Take 1 tablet by mouth daily at bedtime. omeprazole (PRILOSEC) 20 mg capsule Take 1 capsule by mouth once daily. nitroglycerin ointment 0.2% (CPD) by RECTAL route twice daily as needed. (Patient not taking: Reported on 03/14/2023) gabapentin (NEURONTIN) 100 mg capsule Take 1 capsule by mouth three times daily for 90 days. In addition to 600 mg dose Cholecalciferol, Vitamin D3, 2,000 unit cap Take 1 capsule by mouth once daily. polyethylene glycol 3350 (MIRALAX) 17 gram/dose powder Take 17 g by mouth once daily. Mix with 8 ounces of liquid and allow sufficient time to dissolve. (1 capful equals 17 g), (Canister please) aspirin, enteric coated (ASPIRIN, ENTERIC COATED) 81 mg EC tablet Take 162 mg by mouth two times a day. PSYLLIUM SEED, WITH SUGAR, (METAMUCIL ORAL) Take by mouth. 3 times daily docusate sodium (COLACE) 100 mg capsule Take two capsules by mouth once daily. VITAMIN E 400 UNIT CAP Take one(1) tablet tw (more content not included)... Normal [facility] Hemoccult Stl Ql IAon 2023 Lower GI hemoglobin IA Ql (Stl) Negative Normal Negative [facility] Comment on above: Order Comment: Speci men Type: BLOOD SPECIMEN Ordering Facility: [facility] Address: [address] [place], [place] [address] Performed By: #### 2 777-1, 26554-3, 09690-3 #### [facility] CLIA [id number] [address] [place] [address] [place] 25(OH)D3 [facility] 2023 25-hydroxyvitamin D3 [Mass/Vol] 54.9 ng/mL Normal 31.0-80.0 [facility] Comment on above: Order Comment: Speci men Type: BLOOD SPECIMEN Ordering Facility: [facility] Address: [address] [place] [address] Performed By: #### 2 777-1, 22760-2, #### [facility] CLIA [id number] [address] [place] [address] [place] ALK PHOS BONE SPECon 024 ALK PHOSPHATASE, BONE 8.9 ug/L Normal [facility] Comment on above: Order Comment: Speci men Type: BLOOD SPECIMEN Ordering Facility: [facility] Address: [address] [place] [address] Result Comment: INTERPRETIVE INFORMATION: Bone Specific Alkaline Phosphatase Premenopausal Female: 4.5 - 16.9 ug/L Postmenopausal Female: 7.0 - 22.4 ug/L INTERPRETIVE INFORMATION: Bone Specific Alkaline Phosphatase Liver alkaline phosphatase can affect the measurement of bone specific alkaline phosphatase in this assay. Each 100 U/L of liver alkaline phosphatase contributes an additional 2.5 to 5.8 ug/L to the bone specific alkaline phosphatase result. Performed By: [employer] [address] [place] [address] Gas Main Fitter Helper: Ravindra Hobson MD, PhD CLIA Number: [id number] Performed By: #### 2 777-1, 28520-9, #### [facility] CLIA [id number] [address] [place] [address] [place] Collagen crosslinked C-telop eptide [Mass/Vol]on 02-08-2024 C TELOPEPTIDE, BETA CROSS LINKED 377 pg/mL Normal 152-858 [facility] Comment on above: Order Comment: Speci men Type: BLOOD SPECIMEN Ordering Facility: [facility] Address: [address] [place] [address] Performed By: #### 2 777-1, 76832-1, 39023-9 #### [facility] CLIA [id number] [address] [place] [address] [place] Comprehensive metabolic 2000 panelon 02-08-2024 Albumin [Mass/Vol] 4.2 g/dL Normal 3.9-4.9 [facility] Comment on above: Order Comment: Speci men Type: BLOOD SPECIMEN Ordering Facility: [facility] Address: [address] [place] [address] Performed By: #### 2 777-1, 12556-8, 39535-9 #### [facility] CLIA [id number] [address] [place] [address] [place] ALP [Catalytic activity/Vol] 67 U/L Normal 34-123 [facility] Comment on above: Order Comment: Speci men Type: BLOOD SPECIMEN Ordering Facility: [facility] Address: [address] [place] [address] Performed By: #### 2 777-1, 56907-5, 40680-3 #### [facility] CLIA [id number] [address] [place] [address] [place] ALT [Catalytic activity/Vol] 13 U/L Normal 7-38 [facility] Comment on above: Order Comment: Speci men Type: BLOOD SPECIMEN Ordering Facility: [facility] Address: [address] [place] [address] Performed By: #### 2 777-1, 26781-4, 27482-5 #### [facility] CLIA [id number] [address] [place] [address] [place] Anion gap [Moles/Vol] 9 mmol/L Normal 8-15 [facility] Comment on above: Order Comment: Speci men Type: BLOOD SPECIMEN Ordering Facility: [facility] Address: [address] [place] [address] Performed By: #### 2 777-1, 46326-8, 50575-2 #### [facility] CLIA [id number] [address] [place], [place] [id number] [place] AST [Catalytic activity/Vol] 16 U/L Normal 13-35 [facility] Comment on above: Order Comment: Speci men Type: BLOOD SPECIMEN Ordering Facility: [facility] Address: [address] [place] [address] Performed By: #### 2 777-1, 52265-5, #### [facility] CLIA [id number] [address] [place] [address] [place] Bilirubin [Mass/Vol] 0.3 mg/dL Normal 0.2-1.3 [facility] Comment on above: Order Comment: Speci men Type: BLOOD SPECIMEN Ordering Facility: [facility] Address: [address] [place] [address] Performed By: #### 2 777-1, 41133-9, #### [facility] CLIA [id number] [address] [place] [address] [place] Calcium [Mass/Vol] 9.7 mg/dL Normal 8.5-10.2 [facility] Comment on above: Order Comment: Speci men Type: BLOOD SPECIMEN Ordering Facility: [facility] Address: [address] [place] [address] Performed By: #### 2 777-1, 61194-3, #### [facility] CLIA [id number] [address] [place] [address] [place] Chloride [Moles/Vol] 105 mmol/L Normal 98-107 [facility] Comment on above: Order Comment: Speci men Type: BLOOD SPECIMEN Ordering Facility: [facility] Address: [address] [place] [address] Performed By: #### 2 777-1, 39019-9, #### [facility] CLIA [id number] [address] [place] [address] [place] CO2 [Moles/Vol] 26 mmol/L Normal 22-30 [facility] Comment on above: Order Comment: Clarice rodriguez Type: BLOOD SPECIMEN Ordering Facility: [facility] Address: [address] [place] [address] Performed By: #### 2 777-1, , #### [facility] CLIA [id number] [address] [place] [address] [place] Creatinine [Mass/Vol] 0.90 mg/dL Normal 0.58-0.96 [facility] Comment on above: Order Comment: Rakani men Type: BLOOD SPECIMEN Ordering Facility: [facility] Address: [address] [place] [address] Performed By: #### 2 777-1, , #### [id number] [address] [place] [address] [place] Creatinine and Glomerular filtration rate.predicted panel (S/P/Bld) 63 mL/min/1.73m??? Normal >=60 [facility] Comment on above: Order Comment: Clarice rodriguez Type: BLOOD SPECIMEN Ordering Facility: [facility] Address: [address] [place] [address] Result Comment: Marti mated Glomerular Filtration Rate (eGFR) is calculated using the 2020 CKD-EPI creatinine equation. This equation utilizes serum creatinine, sex, and age as parameters. The creatinine assay has traceable calibration to isotope dilution-mass spectrometry. Refer to KDIGO guidelines for clinical interpretation. In patients with unstable renal function, e.g. those with acute kidney injury, the eGFR may not accurately reflect actual GFR. Performed By: #### 2 777-1, , #### [facility] CLIA [id number] [address] [place] [address] [place] Glucose [Mass/Vol] 91 mg/dL Normal 74-99 [facility] Comment on above: Order Comment: Clarice rodriguez Type: BLOOD SPECIMEN Ordering Facility: [facility] Address: [address] [place], [place] [address] [address] Result Comment: The [place] Diabetes Association (ADA) provides guidance for cutoff values for fasting glucose and random glucose. The ADA defines fasting as no caloric intake for at least 8 hours. Fasting plasma glucose results between 100 to 125 mg/dL indicate increased risk for diabetes (prediabetes). Fasting plasma glucose results greater than or equal to 126 mg/dL meet the criteria for diagnosis of diabetes. In the absence of unequivocal hyperglycemia, results should be confirmed by repeat testing. In a patient with classic symptoms of hyperglycemia or hyperglycemic crisis, random plasma glucose results greater than or equal to 200 mg/dL meet the criteria for diagnosis of diabetes. Reference: Standards of Medical Care in Diabetes 2016, [place] [employer]. Diabetes Care. 2016.39(Suppl 1). Performed By: #### 2 777-1, , #### [facility] CLIA [id number] [address] [place] [address] [place] Potassium [Moles/Vol] 3.9 mmol/L Normal 3.7-5.1 [facility] Comment on above: Order Comment: Speci men Type: BLOOD SPECIMEN Ordering Facility: [facility] Address: [address] [place] [address] Performed By: #### 2 777-1, , #### [facility] CLIA [id number] [address] [place] [address] [place] Protein [Mass/Vol] 6.8 g/dL Normal 6.3-8.0 [facility] Comment on above: Order Comment: Speci men Type: BLOOD SPECIMEN Ordering Facility: [facility] Address: [address] [place] [address] Performed By: #### 2 777-1, , #### [facility] CLIA [id number] [address] [place] [address] [place] Sodium [Moles/Vol] 140 mmol/L Normal 136-144 [facility] Comment on above: Order Comment: Speci men Type: BLOOD SPECIMEN Ordering Facility: [facility] Address: [address] [place] [address] Performed By: #### 2 777-1, , #### [facility] CLIA [id number] [address] [place] [address] [place] Urea nitrogen [Mass/Vol] 16 mg/dL Normal 7-21 [facility] Comment on above: Order Comment: Speci men Type: BLOOD SPECIMEN Ordering Facility: [facility] Address: [address] [place], [place] [address] Performed By: #### 2 777-1, , #### [facility] CLIA [id number] [address] [place] [address] [place] Magnesium SerPl-mCncon 02-07 Magnesium [Mass/Vol] 2.1 mg/dL Normal 1.7-2.3 [facility] Comment on above: Order Comment: Speci men Type: BLOOD SPECIMEN Ordering Facility: [facility] Address: [address] [place] [address] Performed By: #### 2 777-1, , #### [facility] CLIA [id number] [address] [place] [address] [place] PTH-Intact SerPl-mCncon 01-22 Parathyrin.intact [Mass/Vol] 23 pg/mL Normal 15-65 [facility] Comment on above: Order Comment: Speci men Type: BLOOD SPECIMEN Ordering Facility: [facility] Address: [address] [place] [address] Performed By: #### 2 777-1, , #### [facility] CLIA [id number] [address] [place], [place] [address] [place] Phosphate SerPl-mCncon 02-07 Phosphate [Mass/Vol] 3.6 mg/dL Normal 2.7-4.8 [facility] Comment on above: Order Comment: Speci men Type: BLOOD SPECIMEN Ordering Facility: [facility] Address: [address] [place] [address] Performed By: #### 2 777-1, 76124-8, 90073-7 #### [facility] [id number] [address] [place], [place] [id number] [place] [address] CNOVon 02-05-2024 CNOV Office Visit (ENWSTR ) EILEEN MCKINLEY ([id number]) 1940 F Date Time Provider Department 02/05/24 1:40 PM WALTER PULIDO ENWSTR During your visit today, we recorded the following information about you: Temperature Pulse Blood pressure Weight 98.7 degrees 80/minute 96/60 55.9 kg Height 1.6 m Walter Pulido MD 02/05/2024 6:52 PM [facility] Endocrinology and Metabolism [place] Initial Clinic Visit Note NAME: Eileen Mckinley is a 83 year old old female PCP: Laurence Martin MD Requesting Provider: SELF My final recommendations will be communicated back to the requesting physician by way of shared medical record or letter via [place] mail. Chief Complaint: HPI: Eileen Mckinley is a 83 year old female here to discuss bone health. PMHx significant for Osteoporosis Calcium: orange juice with calcium daily. She takes calcium supplements with Vitamin D- she does not know the quantity of calcium in it Vitamin D: 2000 units daily Dietary and supplemental calcium intakes are inadequate Prior use of antiresporptives or other medications: estradiol after menopause for hot flashes, then she went on alendronate for about 5 years. She was seeing Dr. Butterfield at that time in 2005 She has a hx of osteosarcoma, and amputation of left leg Physical activity consists of daily chores. Patient has problem with balance. Fall prevention uses crutches Prior fragility fractures: no Height loss: 1 inch loss Kidney stones: one episode 20 years ago Weight change: no History of steroid use: no History of malabsorption: no History of certain medication use: no P:1 A:0 History of BCP use: yes for 2 years, stopped due to headaches History of estrogen use: yes, after menopause for 10 years History of : normal Menopause: 50-52 years Current or recent tobacco use: no Caffeine intake: no Alcohol use: no Use of lithium or thiazides: no History of hyperparathyroidism: no Cancer history: no History of radiation exposure: no Family history of osteoporosis, calcium, or bone disorders: no Family history of hip fractures: no Other endocrine diseases: not known Dental procedure planning - on right gum- she might get PAST MEDICAL HISTORY Diagnosis Date Age-related osteoporosis without current pathological fracture Anxiety 04/23/2013 Arthritis Constipation Diffuse cystic mastopathy Essential hypertension, benign 12/21/2010 GERD (gastroesophageal reflux disease) History of osteosarcoma Left lower extremity; 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 Nontoxic multinodular goiter Osteoporosis 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 Do all this for 180 days. In addition to 600 mg dose. ibuprofen (ADVIL) 200 mg tablet Take 600 mg by mouth every 6 hours as needed for pain. nystatin (MYCOSTATIN) cream Apply 1 application to affected area two times a day. nitroglycerin 0.4 % (w/w) oint by RECTAL route two times a day as needed. lisinopril (ZESTRIL) 10 mg tablet Take 1 tablet by mouth once daily. pentoxifylline ER (TRENTAL) 400 mg CR tablet Take 1 tablet by mouth two times a day. verapamil SR (CALAN SR) 180 mg CR tablet Take 1 tablet by mouth daily at bedtime. omeprazole (PRILOSEC) 20 mg capsule Take 1 capsule by mouth once daily. Cholecalciferol, Vitamin D3, 2,000 unit cap Take 1 capsule by mouth once daily. polyethylene glycol 3350 (MIRALAX) 17 gram/dose powder Take 17 g by mouth once daily. Mix with 8 ounces of liquid and allow sufficient time to dissolve. (1 capful equals 17 g), (Canister please) aspirin, enteric coated (ASPIRIN, ENTERIC COATED) 81 mg EC tablet Take 162 mg by mouth two times a day. PSYLLIUM SEED, WITH SUGAR, (METAMUCIL ORAL) Take by mouth. 3 times daily docusate sodium (COLACE) 100 mg capsule Take two capsules by mouth once daily. VITAMIN E 400 UNIT CAP Take one(1) tablet twice daily. CENTRUM SILVER TABLET Take (1) one tablet daily LUTEIN 6MG SOFTGEL Take one(1) tablet daily. gabapentin (NEURONTIN) 300 mg capsule Take 2 capsules by mouth every morning AND 2 capsules every evening AND 3 capsules daily at bedtime. Do all this for 90 days. In addition to 100 mg capsule. nitroglycerin ointment 0.2% (CPD) (more content not included)... Normal [facility] 01-12-2024 [facility] Telephone (INTMWS) EILEEN MCKINLEY ([id number]) 1940 F Date Time Provider Department 01/12/24 LAURENCE MARTIN INTWS During your visit today, we recorded the following information about you: Laurence Martin MD 01/12/2024 2:14 PM Signed Discussed intermittent diarrhea. Already cut out Miralax. Using Metamucil. Further evaluation and treatment as indicated. Allergies As of Date: 01/12/2024 Noted Allergy Reaction AMITRIPTYLINE 02/25/2005 Comments: Dry mouth CYMBALTA (DULOXETINE) 02/25/2005 Comments: Dry mouth,diarrhea, blurred vision NIACIN 02/25/2005 2 - Rash Date Reviewed: 09/29/2023 Reviewed by: Jennifer Ardon LPN - Fully Assessed Primary Visit Diagnosis:Diarrhea, unspecified type [R19.7] Order(s):IMMUNOCHEMICA L FECAL OCCULT BLOOD TEST [SQIFOBT] Order #: [id number]. #:[id number] Prescriptions as of 02/24/2024 - gabapentin (NEURONTIN) 100 mg capsule Take 1 capsule by mouth every morning AND 1-2 capsules every evening AND 1 capsule daily at bedtime. Do all this for 180 days. In addition to 600 mg dose. - ibuprofen (ADVIL) 200 mg tablet Take 600 mg by mouth every 6 hours as needed for pain. - nystatin (MYCOSTATIN) cream Apply 1 application to affected area two times a day. - nitroglycerin 0.4 % (w/w) oint by RECTAL route two times a day as needed. - gabapentin (NEURONTIN) 300 mg capsule Take 2 capsules by mouth every morning AND 2 capsules every evening AND 3 capsules daily at bedtime. Do all this for 90 days. In addition to 100 mg capsule. - lisinopril (ZESTRIL) 10 mg tablet Take 1 tablet by mouth once daily. - pentoxifylline ER (TRENTAL) 400 mg CR tablet Take 1 tablet by mouth two times a day. - verapamil SR (CALAN SR) 180 mg CR tablet Take 1 tablet by mouth daily at bedtime. - omeprazole (PRILOSEC) 20 mg capsule Take 1 capsule by mouth once daily. - nitroglycerin ointment 0.2% (CPD) by RECTAL route twice daily as needed. - gabapentin (NEURONTIN) 100 mg capsule Take 1 capsule by mouth three times daily for 90 days. In addition to 600 mg dose - Cholecalciferol, Vitamin D3, 2,000 unit cap Take 1 capsule by mouth once daily. - polyethylene glycol 3350 (MIRALAX) 17 gram/dose powder Take 17 g by mouth once daily. Mix with 8 ounces of liquid and allow sufficient time to dissolve. (1 capful equals 17 g), (Canister please) - aspirin, enteric coated (ASPIRIN, ENTERIC COATED) 81 mg EC tablet Take 162 mg by mouth two times a day. - PSYLLIUM SEED, WITH SUGAR, (METAMUCIL ORAL) Take by mouth. 3 times daily - docusate sodium (COLACE) 100 mg capsule Take two capsules by mouth once daily. - VITAMIN E 400 UNIT CAP Take one(1) tablet twice daily. - CENTRUM SILVER TABLET Take (1) one tablet daily - LUTEIN 6MG SOFTGEL Take one(1) tablet daily. 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] 12/21/2010 Raynaud's syndrome [I73.00] 06/08/2011 Fracture of fifth metacarpal bone of left hand *08/06/2012 11/24/2015 Anxiety [F41.9] 04/23/2013 Phantom pain following amputation of lower limb*11/24/2015 Vitamin D deficiency [E55.9] 09/10/2016 Skin ulcer, limited to breakdown of skin (HCC) *02/22/2019 04/19/2023 Constipation due to pain medication [K59.03] 02/22/2019 Groin strain [S76.219A] 02/22/2019 10/01/2020 Contusion of left wrist [S60.212A] 02/22/2019 10/01/2020 Contusion of left hip [S70.02XA] 02/22/2019 10/01/2020 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 Today bad again , feels sick in no other way but it has became a problem with messing herself today due to how fast it comes on. She is asking if could take imodium with her other meds. And at which point of this should she come in if imodium does not help. Laurence Martin MD 01/06/2024 2:47 PM Signed May take Imodium if needed with current meds, but if still taking Miralax, may put that on hold. Follow up if diarrhea not resolving in the next couple weeks or so since problem has been going for several weeks already. Aurelia Pierce RN 01/08/2024 9:39 AM Signed Pt called and is notified of providers results and instructions. Pt voices understanding. Pt states she will stop the Miralax, but she only takes that a couple times a week. She states she takes Metamucil TID, she wanted to know if the provider wanted her to stop this as well. I told her I would ask the provider to get back to her, but she would probably want her to stop it for now. Pt states she is normally constipated. BRADLEY Ortiz Liza D, MD 01/08/2024 7:14 PM Signed Would put Metamucil on hold for now too and resume as needed Aurelia Pierce RN 01/09/2024 8:28 AM Signed Called and left a voicemail for the Patient to call back and ask for a nurse to receive the providers message. BRADLEY Ortiz M Robin, RN 01/09/2024 8:46 AM Signed Pt returned call and given provider's message below with verbalized understanding. Patient agreeable. Allergies As of Date: 01/04/2024 Noted Allergy Reaction AMITRIPTYLINE 02/25/2005 Comments: Dry mouth CYMBALTA (DULOXETINE) 02/25/2005 Comments: Dry mouth,diarrhea, blurred vision NIACIN 02/25/2005 2 - Rash Date Reviewed: 09/29/2023 Reviewed by: Jennifer Ardon LPN - Fully Assessed Reason for Visit: Diarrhea [35] Prescriptions as of 01/09/2024 - nystatin (MYCOSTATIN) cream Apply 1 application to affected area two times a day. - nitroglycerin 0.4 % (w/w) oint by RECTAL route two times a day as needed. - gabapentin (NEURONTIN) 300 mg capsule Take 2 capsules by mouth every morning AND 2 capsules every evening AND 3 capsules daily at bedtime. Do all this for 90 days. In addition to 100 mg capsule. - gabapentin (NEURONTIN) 100 mg capsule Take 1 capsule by mouth every morning AND 1-2 capsules every evening AND 1 capsule daily at bedtime. Do all this for 180 days. In addition to 600 mg dose. - lisinopril (ZESTRIL) 10 mg tablet Take 1 tablet by mouth once daily. - pentoxifylline ER (TRENTAL) 400 mg CR tablet Take 1 tablet by mouth two times a day. - verapamil SR (CALAN SR) 180 mg CR tablet Take 1 tablet by mouth daily at bedtime. - omeprazole (PRILOSEC) 20 mg capsule Take 1 capsule by mouth once daily. - nitroglycerin ointment 0.2% (CPD) by RECTAL route twice daily as needed. - gabapentin (NEURONTIN) 100 mg capsule Take 1 capsule by mouth three times daily for 90 days. In addition to 600 mg dose - Cholecalciferol, Vitamin D3, 2,000 unit cap Take 1 capsule by mouth once daily. - polyethylene glycol 3350 (MIRALAX) 17 gram/dose powder Take 17 g by mouth once daily. Mix with 8 ounces of liquid and allow sufficient time to dissolve. (1 capful equals 17 g), (Canister please) - aspirin, enteric coated (ASPIRIN, ENTERIC COATED) 81 mg EC tablet Take 162 mg by mouth two times a day. - PSYLLIUM SEED, WITH SUGAR, (METAMUCIL ORAL) Take by mouth. 3 times daily - docusate sodium (COLACE) 100 mg capsule Take two capsules by mouth once daily. - VITAMIN E 400 UNIT CAP Take one(1) tablet twice daily. - CENTRUM SILVER TABLET Take (1) one tablet daily - LUTEIN 6MG SOFTGEL Take one(1) tablet daily. 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 Normal [facility] US THYROID BIOPSY LEFT (POC) SURG USE ONLYon 07-28-2023 [facility] XR Elbow - left AP and Later al and obliqueon 08-18-2020 IMPRESSION: Findings suggest there is soft tissue swelling over the olecranon process and/or fluid within the olecranon bursa. Photographs Curator: BOLIVAR Transcribe Date/Time: Aug 18 2020 11:33A Dictated by : DAVINA SAPP DO This examination was interpreted and the report reviewed and electronically signed by: DAVIAN SAPP DO on Aug 18 2020 11:35AM [facility] DIVISION OF RADIOLOGY * * *Final Report* * * DATE OF EXAM: Aug 18 2020 11:27AM WOX [id number] - XR ELBOW 3V AP/LAT/OTHER LT / PROCEDURE REASON: Elbow injury, initial encounter * * * * Physician Interpretation * * * * LEFT elbow EXAM DATE/TIME: 08/18/2020 11:27 AM HISTORY: 80 years old Clinical information: Elbow injury, initial encounter FELL 3-4 WEEKS AGO She fell against her refrigerator 3-4 weeks ago. She has full range of motion to the elbow but still has some pain on the medial side.? TECHNIQUE: Images: XR ELBOW 3V AP/LAT/OTHER LT Comparison: None. RESULT: Findings: Moderate soft tissue swelling and/or fluid within the olecranon bursa noted. Slight irregularity of the lacrimal process. Bone density appears well-preserved. No fractures or dislocations are seen. DIVISION OF RADIOLOGY Provider, [facility] - 08/18/2020 * * *Final Report* * * DATE OF EXAM: Aug 18 2020 11:27AM WOX [id number] - XR ELBOW 3V AP/LAT/OTHER LT / PROCEDURE REASON: Elbow injury, initial encounter * * * * Physician Interpretation * * * * LEFT elbow EXAM DATE/TIME: 08/18/2020 11:27 AM HISTORY: 80 years old Clinical information: Elbow injury, initial encounter FELL 3-4 WEEKS AGO She fell against her refrigerator 3-4 weeks ago. She has full range of motion to the elbow but still has some pain on the medial side.? TECHNIQUE: Images: XR ELBOW 3V AP/LAT/OTHER LT Comparison: None. RESULT: Findings: Moderate soft tissue swelling and/or fluid within the olecranon bursa noted. Slight irregularity of the lacrimal process. Bone density appears well-preserved. No fractures or dislocations are seen. IMPRESSION IMPRESSION: Findings suggest there is soft tissue swelling over the olecranon process and/or fluid within the olecranon bursa. Photographs Curator: BOLIVAR Transcribe Date/Time: Aug 18 2020 11:33A Dictated by : DAVINA SAPP DO This examination was interpreted and the report reviewed and electronically signed by: DAVINA SAPP DO on Aug 18 2020 11:35AM EST [facility] Radiology Study observation (narrative) [facility] XR Elbow - left AP and Later al and obliqueOrdered By: [facility] Provider on 08-18-2020 [facility] Vital Signs Date Time Vital Sign Value Performing Clinician Facility 09-17-2024 12:59-0400 Body mass index (BMI) [Ratio] 21.17 kg/m2 Shai Rosa ENVIRONMENTAL LEAD.DINING ROOM SUPERVISOR Work Phone: [facility] 09-17-2024 12:59-0400 Body weight 54.2 kg Shai Rosa ENVIRONMENTAL LEAD.DINING ROOM SUPERVISOR Work Phone: [facility] 09-17-2024 12:59-0400 Diastolic blood pressure 50 mm[Hg] Shai Rosa ENVIRONMENTAL LEAD.DINING ROOM SUPERVISOR Work Phone: [facility] 09-17-2024 12:59-0400 Heart rate 79 /min Shai Rosa ENVIRONMENTAL LEAD.DINING ROOM SUPERVISOR Work Phone: [facility] 09-17-2024 12:59-0400 SaO2% (BldA) [Mass fraction] 97 % Shai Rosa ENVIRONMENTAL LEAD.DINING ROOM SUPERVISOR Work Phone: [facility] 09-17-2024 12:59-0400 Systolic blood pressure 110 mm[Hg] Shai Rosa ENVIRONMENTAL LEAD.DINING ROOM SUPERVISOR Work Phone: [facility] 03-19-2024 09:18-0500 Body mass index (BMI) [Ratio] 21.95 kg/m2 Laurence Martin MD Work Phone: [facility] 03-19-2024 09:18-0500 Body temperature 99.1 [degF] Laurence Martin MD Work Phone: [facility] 03-19-2024 09:18-0500 Body weight 56.2 kg Laurence Martin MD Work Phone: [facility] 03-19-2024 09:18-0500 Diastolic blood pressure 68 mm[Hg] Laurence Martin MD Work Phone: [facility] 03-19-2024 09:18-0500 Heart rate 93 /min Laurence Martin MD Work Phone: [facility] 03-19-2024 09:18-0500 Respiratory rate 18 /min Laurence Martin MD Work Phone: [facility] 03-19-2024 09:18-0500 SaO2% (BldA) [Mass fraction] 97 % Laurence Martin MD Work Phone: [facility] 03-19-2024 09:18-0500 Systolic blood pressure 122 mm[Hg] Laurence Martin MD Work Phone: [facility] 02-05-2024 13:32-0400 Body height 160 cm Walter Pulido MD Work Phone: [facility] 02-05-2024 13:32-0400 Body mass index (BMI) [Ratio] 21.82 kg/m2 Walter Pulido MD Work Phone: [facility] 02-05-2024 13:32-0400 Body temperature 98.71 [degF] Walter Pulido MD Work Phone: [facility] 02-05-2024 13:32-0400 Body weight 55.88 kg Walter Pulido MD Work Phone: [facility] 02-05-2024 13:32-0400 Diastolic blood pressure 60 mm[Hg] Walter Pulido MD Work Phone: [facility] 02-05-2024 13:32-0400 Heart rate 80 /min Walter Pulido MD Work Phone: [facility] 02-05-2024 13:32-0400 SaO2% (BldA) [Mass fraction] 96 % Walter Pulido MD Work Phone: [facility] 02-05-2024 13:32-0400 Systolic blood pressure 96 mm[Hg] Walter Pulido MD Work Phone: [facility] 09-29-2023 16:04-0400 Body mass index (BMI) [Ratio] 22.85 kg/m2 Laurence Martin MD Work Phone: [facility] 09-29-2023 16:04-0400 Body weight 58.51 kg Laurence Martin MD Work Phone: [facility] 09-29-2023 16:04-0400 Diastolic blood pressure 62 mm[Hg] Laurence Martin MD Work Phone: [facility] 09-29-2023 16:04-0400 Heart rate 98 /min Laurence Martin MD Work Phone: [facility] 09-29-2023 16:04-0400 SaO2% (BldA) [Mass fraction] 97 % Laurence Martin MD Work Phone: [facility] 09-29-2023 16:04-0400 Systolic blood pressure 130 mm[Hg] Laurence Martin MD Work Phone: [facility] 06-12-2023 14:02-0500 Body height 160 cm Taylor Finn MD Work Phone: [facility] 06-12-2023 14:02-0500 Body temperature 98.1 [degF] Taylor Finn MD Work Phone: [facility] 06-12-2023 14:02-0500 Body weight 62.14 kg Taylor Finn MD Work Phone: [facility] 06-12-2023 14:02-0500 Diastolic blood pressure 70 mm[Hg] Taylor Finn MD Work Phone: [facility] 06-12-2023 14:02-0500 Heart rate 104 /min Taylor Finn MD Work Phone: [facility] 06-12-2023 14:02-0500 SaO2% (BldA) [Mass fraction] 98 % Taylor Finn MD Work Phone: [facility] 06-12-2023 14:02-0500 Systolic blood pressure 138 mm[Hg] Taylor Finn MD Work Phone: [facility] 08-09-2022 12:25-0400 Diastolic blood pressure 60 mm[Hg] Laurence Martin MD Work Phone: [facility] 08-09-2022 12:25-0400 Systolic blood pressure 122 mm[Hg] Laurence Martin MD Work Phone: [facility] 08-09-2022 11:08-0400 Body temperature 98.01 [degF] Laurence Martin MD Work Phone: [facility] 08-09-2022 11:08-0400 Body weight 60.55 kg Laurence Martin MD Work Phone: [facility] 08-09-2022 11:08-0400 Heart rate 88 /min Laurence Martin MD Work Phone: [facility] 08-09-2022 11:08-0400 Respiratory rate 18 /min Laurence Martni MD Work Phone: [facility] 08-09-2022 11:08-0400 SaO2% (BldA) [Mass fraction] 97 % Laurence Martin MD Work Phone: [facility] 02-04-2022 10:24-0400 Body weight 59.88 kg Laurence Martin MD Work Phone: [facility] 02-04-2022 10:24-0400 Diastolic blood pressure 78 mm[Hg] Laurence Martin MD Work Phone: [facility] 02-04-2022 10:24-0400 Heart rate 86 /min Laurence Martin MD Work Phone: [facility] 02-04-2022 10:24-0400 SaO2% (BldA) [Mass fraction] 96 % Laurence Martin MD Work Phone: [facility] 02-04-2022 10:24-0400 Systolic blood pressure 130 mm[Hg] Laurence Martin MD Work Phone: [facility] 10-13-2021 09:57-0400 Body temperature 96.3 [degF] [facility] Work Phone: 10-13-2021 09:57-0400 Diastolic blood pressure 69 mm[Hg] [facility] Work Phone: 10-13-2021 09:57-0400 Heart rate 96 /min [facility] Work Phone: 10-13-2021 09:57-0400 Systolic blood pressure 141 mm[Hg] [facility] Work Phone: 08-03-2021 10:48-0400 Body weight 60.78 kg Laurence Martin MD Work Phone: [facility] 08-03-2021 10:48-0400 Diastolic blood pressure 72 mm[Hg] Laurence Martin MD Work Phone: [facility] 08-03-2021 10:48-0400 Heart rate 78 /min Laurence Martin MD Work Phone: [facility] 08-03-2021 10:48-0400 SaO2% (BldA) [Mass fraction] 98 % Laurence Martin MD Work Phone: [facility] 08-03-2021 10:48-0400 Systolic blood pressure 122 mm[Hg] Laurence Martin MD Work Phone: [facility] Encounters Encounter Date Encounter Type Care Provider Facility Start: 12-30-2024 ambulatory Laurence Martin Facilit y:[facility] Start: 12-24-2024 End: 12-24-2024 ambulatory Irina Ding MA [facility] [place] Start: 12-24-2024 End: 12-24-2024 Patient encounter procedure Irina Ding MA [facility] [place] Comment on above: Population Health Na vigation Outreach [facility] Start: 12-18-2024 End: 12-18-2024 Telephone encounter Laurence Martin MD Work Phone: [facility] [place] Comment on above: Orders (Mammogram) Start: 09-18-2024 End: 11-18-2024 Follow-up encounter Shai Saxena APRN.DINING ROOM SUPERVISOR Work Phone: [facility] [place] Start: 09-17-2024 End: 09-17-2024 ambulatory SHAI SAXENA Facility:[facility] Start: 09-17-2024 End: 09-17-2024 Patient encounter procedure Shai Saxena APRN.DINING ROOM SUPERVISOR Work Phone: [facility] [place] Comment on above: 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) (Primary Dx); Essential hypertension, benign; Vitamin D deficiency; Gastroesophageal reflux disease, unspecified whether esophagitis present; Encounter for therapeutic drug monitoring Start: 09-17-2024 End: 09-17-2024 ambulatory SHAI LEWISR Facility:[facility] Start: 09-03-2024 End: 09-03-2024 Refill Laurence Martin MD Work Phone: [facility] [place] Comment on above: Refill Request Start: 05-17-2024 End: 05-17-2024 Refill Laurence Martin MD Work Phone: [facility] Comment on above: Refill Request Start: 05-14-2024 End: 05-14-2024 Refill Mago Lux SENIOR BUSINESS DEVELOPMENT MANAGER Work Phone: [facility] [place] Comment on above: Refill Request Start: 05-03-2024 End: 05-03-2024 Refill Laurence Martin MD Work Phone: [facility] [place] Comment on above: Refill Request Start: 03-19-2024 End: 03-19-2024 Office outpatient visit 25 minutes Laurence Martin MD Work Phone: [facility] [place] Comment on above: 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) (Primary Dx); Age-related osteoporosis without current pathological fracture; Vitamin D deficiency; Essential hypertension, benign; Gastroesophageal reflux disease, unspecified whether esophagitis present; Screening for depression; Encounter for immunization Start: 03-19-2024 End: 03-19-2024 ambulatory LAURENCE MARTIN Facility:[facility] Start: 03-06-2024 End: 03-07-2024 ambulatory Laurence Martin MD Work Phone: [facility] [place] Comment on above: Lab for upcoming dandre t Start: 02-21-2024 End: 02-21-2024 ambulatory [facility] [place] Work Phone: [facility] [place] Start: 02-21-2024 End: 02-21-2024 Patient encounter procedure Immunization Clinic Nurse [place] Work Phone: Family [facility] [place] Start: 02-08-2024 End: 02-08-2024 [facility] Start: 02-05-2024 End: 02-05-[address] [facility] Facility:[facility] Start: 02-05-2024 End: 02-05-2024 Patient encounter procedure Walter Pulido MD Work Phone: Endocrinology Comment on above: Age-related osteopor osis without current pathological fracture (Primary Dx) Start: 02-03-2024 End: 02-05-2024 Refill Laurence Martin MD Work Phone: [facility] [place] Comment on above: Refill Request Start: 01-12-2024 End: 01-12-2024 Telephone encounter Laurence Martin MD Work Phone: [facility] [place] Start: 01-06-2024 End: 01-09-2024 Refill Laurence Martin MD Work Phone: [facility] [place] Comment on above: Refill Request Start: 01-04-2024 End: 01-09-2024 Telephone encounter Laurence Martin MD Work Phone: [facility] [place] Comment on above: Diarrhea Start: 12-17-2023 End: 12-19-2023 Refill Laurence Martin MD Work Phone: [facility] [place] Comment on above: Refill Request Start: 12-13-2023 End: 12-15-2023 Telephone encounter Laurence Martin MD Work Phone: [facility] [place] Comment on above: Results Start: 11-21-2023 Telephone encounter Laurence crabtree MD Work Phone: [facility] [place] Comment on above: Opened In Error Start: 11-14-2023 Telephone encounter Laurence crabtree MD Work Phone: [facility] [place] Comment on above: Orders (Bone Density and Mammogram) Start: 11-10-2023 ambulatory Laurence henley MD Work Phone: [facility] [place] Comment on above: Mammogram bone densi ty Start: 11-04-2023 Refill Laurence henley MD Work Phone: LAB [facility] Comment on above: Refill Request Start: 09-29-2023 End: 09-29-2023 Office outpatient visit 25 minutes Laurence Martin MD Work Phone: [facility] [place] Comment on above: Acute cystitis witho ut hematuria (Primary Dx); 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); Vitamin D deficiency; Age-related osteoporosis without current pathological fracture Start: 09-21-2023 Telephone encounter Laurence crabtree MD Work Phone: [facility] [place] Comment on above: Patient Update; Sarah ent Request Start: 07-28-2023 End: 07-28-2023 Patient encounter procedure Taylor Finn MD Work Phone: General Surgery Comment on above: Abnormal ultrasound of thyroid gland (Primary Dx) Start: 07-04-2023 Telephone encounter Laurence crabtree MD Work Phone: [facility] [place] Comment on above: Results Start: 06-12-2023 End: 06-12-2023 Patient encounter procedure Taylor Finn MD Work Phone: General Surgery Comment on above: Abnormal ultrasound of thyroid gland (Primary Dx); On aspirin at home Start: 2023 Refill Mago Lux A PRN.SENIOR BUSINESS DEVELOPMENT MANAGER Work Phone: LAB COVID Comment on above: Refill Request Start: 02-10-2023 Telephone encounter Laurence crabtree MD Work Phone: Internal Medicine [place] Comment on above: Orders Start: 02-08-2023 Telephone encounter Laurence crabtree MD Work Phone: [facility] [place] Comment on above: Question Start: 01-13-2023 Refill Laurence henley MD Work Phone: Internal [facility] [place] Comment on above: Refill Request Start: 12-06-2022 End: 12-06-2022 ambulatory [facility] Work Phone: Start: 12-06-2022 End: 12-06-2022 Patient encounter procedure [facility] Work Phone: Start: 08-09-2022 End: 08-09-2022 Office outpatient visit 25 minutes Laurence Martin MD Work Phone: Internal [facility] [place] Comment on above: Essential hypertensi on, benign (Primary Dx); 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SENIOR BUSINESS DEVELOPMENT MANAGER Work Phone: Internal [facility] [place] Comment on above: Refill Request Start: 02-26-2022 Refill [facility] Provider [facility] Everardo [place] Comment on above: Refill Request Start: 02-04-2022 End: 02-04-2022 Office outpatient visit 25 minutes Laurence Martin MD Work Phone: Internal [facility] [place] Comment on above: Vitamin D deficiency (Primary Dx); 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); Essential hypertension, benign; Gastroesophageal reflux disease, unspecified whether esophagitis present; Nontoxic multinodular goiter; Primary stress urinary incontinence; Encounter for immunization Start: 11-30-2021 End: 11-30-2021 Patient encounter procedure [facility] Start: 10-25-2021 Refill Laurence henley MD Work Phone: Internal [facility] Comment on above: Refill Request Start: 10-18-2021 Refill Laurence henley MD Work Phone: Internal [facility] Comment on above: Refill Request Start: 10-13-2021 Non-patient / Non-visit [facility] Start: 10-13-2021 End: 10-15-2021 [facility] Start: 09-29-2021 Non-patient / Non-visit [facility] Start: 08-03-2021 End: 08-03-2021 Office outpatient visit 40 minutes Laurence Martin MD Work Phone: Internal [facility] [place] Comment on above: 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) (Primary Dx); Essential thrombocythemia (HCC); Essential hypertension, benign; Vitamin D deficiency; Breast cancer screening by mammogram; Asymptomatic postmenopausal status Start: 08-18-2020 End: 08-18-2020 Subsequent hospital visit by physician Lynette [facility] [place] Work Phone: Radiology Comment on above: Elbow injury, initia l encounter [S59.909A] Procedures Date Procedure Procedure Detail Performing Clinician Start: 03-19-2024 Adult depression scr eening assessment Laurence Martin MD Work Phone: Start: 02-21-2024 [facility] COVI D-19 VACCINE AGE 12+ YR (COMIRNATY) Laurence Martin MD Work Phone: Start: 07-28-2023 US THYROID BIOPSY LE FT (POC) SURG USE ONLY Taylor Finn MD Work Phone: Start: 12-06-2022 Screening mammography Start: 02-04-2022 INFLUENZA SEASONAL QUADRIVALENT HIGH DOSE AGE 65+ Laurence Martin MD Work Phone: Start: 11-30-2021 Dual energy X-ray absorptiometry Start: 11-30-2021 Screening mammography Start: 08-18-2020 Radex elbow complete minimum 3 views Irina Arias APRN.CNP Work Phone: Plan of Treatment Date Care Activity Detail Author Start: 09-18-2027 [facility] 02-07-2027 [facility] Start: 09-21-2026 [facility] Start: 04-18-2026 Screening for osteoporosis Bone Density Screening [facility] Start: 03-06-2026 [facility] Start: 08-02-2025 DIABETES SCREEN DIABETES SCREEN [facility] Start: 08-02-2025 [facility] Start: 04-04-2025 End: 04-04-2025 Patient encounter procedure 04/04/2025 1:20 PM EST Office Visit [facility] [place] [address] [place] [address] [id number] Laurence Martin MD [address] [place] [address] 6 month follow up [facility] [place] Comment on above: 6 month follow up Start: 03-19-2025 Depression Screening Depression Scre [facility] Start: 01-28-2025 DIABETES SCREEN DIABETES SCREEN [facility] Start: 12-23-2024 Influenza vaccination Influenza Vacc ine (#1) [facility] Start: 09-28-2024 Screening for osteoporosis Bone Density Screening [facility] Comment on above: Postponed from 11/27 (Declined at this time) Start: 09-17-2024 End: 09-17-2024 Patient encounter procedure [facility] [place] Comment on above: 6 month follow up Start: 08-21-2024 Covid-19 Vaccine () Covid-19 Vaccine () [facility] Start: 05-10-2024 End: 05-10-2024 Patient encounter procedure 05/10/2024 2:20 PM EST Office Visit Endocrinology [address] [place], [place] [id number] Walter Pulido MD [address] [address] [address] [place], [place] [id number] 2 MTH F/U Endocrinology Comment on above: 2 MTH F/U Start: 04-24-2024 Advance Directive Discussion Advance Directive Discussion [facility] Start: 03-19-2024 End: 03-19-2024 Patient encounter procedure 03/19/2024 9:20 AM EST Office Visit [facility] [place] [address] [place], [place] [id number] Laurence Martin MD [address] [place] [address] 6 month follow up [facility] [place] Comment on above: 6 month follow up Start: 03-14-2024 RSV Vaccine (1 - 1-dose 60+ series) RSV Vaccine (1 - 1-dose 60+ series) [facility] Comment on above: Postponed from 06/07 (Declined at this time) Start: 03-14-2024 Urine microalbumin profile DTaP,Tdap,Td Vaccine (1 - Tdap) [facility] Comment on above: Postponed from 06/07 (Declined at this time) Start: 02-06-2024 DIABETES SCREEN DIABETES SCREEN [facility] Start: 02-05-2024 End: 05-06-2024 25-hydroxyvitamin D3 [Mass/volume] in Serum or Plasma VITAMIN D 25 HYDROXY Lab Routine Age-related osteoporosis without current pathological fracture Expected: 02/05/2024, Expires: 05/06/2024 [facility] Work Phone: Comment on above: Expected: 02/05/2024 , Expires: 05/06/2024 Start: 02-05-2024 End: 05-06-2024 ALK PHOS BONE SPEC ALK PHOS BONE SPEC Lab Routine Age-related osteoporosis without current pathological fracture Expected: 02/05/2024, Expires: 05/06/2024 [facility] Comment on above: Expected: 02/05/2024 , Expires: 05/06/2024 Start: 02-05-2024 End: 05-06-2024 Collagen crosslinked C-telopeptide [Mass/volume] in Serum or Plasma C TELOPEPTIDE, BETA Lab Routine Age-related osteoporosis without current pathological fracture Expected: 02/05/2024, Expires: 05/06/2024 [facility] Comment on above: Expected: 02/05/2024 , Expires: 05/06/2024 Start: 02-05-2024 End: 05-06-2024 Comprehensive metabolic 2000 panel - Serum or Plasma COMPREHENSIVE METABOLIC PANEL Lab Routine Age-related osteoporosis without current pathological fracture Expected: 02/05/2024, Expires: 05/06/2024 [facility] Comment on above: Expected: 02/05/2024 , Expires: 05/06/2024 Start: 02-05-2024 End: 05-06-2024 Magnesium [Mass/volume] in Serum or Plasma MAGNESIUM Lab Routine Age-related osteoporosis without current pathological fracture Expected: 02/05/2024, Expires: 05/06/2024 [facility] Comment on above: Expected: 02/05/2024 , Expires: 05/06/2024 Start: 02-05-2024 End: 05-06-2024 Parathyrin.intact [Mass/volume] in Serum or Plasma PTH INTACT Lab Routine Age-related osteoporosis without current pathological fracture Expected: 02/05/2024, Expires: 05/06/2024 [facility] Comment on above: Expected: 02/05/2024 , Expires: 05/06/2024 Start: 02-05-2024 End: 05-06-2024 Phosphate [Mass/volume] in Serum or Plasma PHOSPHORUS INORGANIC Lab Routine Age-related osteoporosis without current pathological fracture Expected: 02/05/2024, Expires: 05/06/2024 [facility] Comment on above: Expected: 02/05/2024 , Expires: 05/06/2024 Start: 02-05-2024 End: 02-05-2024 Patient encounter procedure 02/05/2024 1:40 PM EDT Office Visit Endocrinology [address] [place], [place] [id number] Walter Pulido MD [address] [place], [place] [address] consult for Osteoporosis Endocrinology Comment on above: consult for Osteopor osis Start: 12-24-2023 Covid-19 Vaccine () Covid-19 Vaccine () [facility] Start: 12-24-2023 Covid-19 Vaccine () Covid-19 Vaccine () [facility] Start: 12-24-2023 Influenza vaccination Influenza Vacc ine (#1) [facility] Start: 09-29-2023 End: 09-29-2023 Patient encounter procedure 09/29/2023 4:00 PM EDT Office Visit [facility] [place] [address] [place], [place] [phone] Laurence Martin MD [address] [place] [address] 6 month follow up [facility] [place] Comment on above: 6 month follow up Start: 09-21-2023 End: 12-21-2023 Urinalysis complete panel - Urine URINALYSIS WITH MICROSCOPIC, REFLEX CULTURE Lab Routine UTI symptoms Expected: 09/21/2023, Expires: 12/21/2023 [facility] Work Phone: Comment on above: Expected: 09/21/2023 , Expires: 12/21/2023 Start: 07-13-2023 Covid-19 Vaccine () Covid-19 Vaccine () [facility] Start: 04-24-2023 Advance Directive Discussion Advance Directive Discussion [facility] Start: 04-24-2023 Behavioral Health Screening Behavioral Health Screening [facility] Start: 04-24-2023 Depression Assessment Depression Ass essment [facility] Start: 03-22-2023 End: 09-08-2023 Us soft tissue head & neck real time imge docm US THYROID/PARATHYROID Radiology Routine Thyroid nodule Expected: 03/22/2023 (Approximate), Expires: 09/08/2023 [facility] Work Phone: Comment on above: Expected: 03/22/2023 (Approximate), Expires: 09/08/2023 Start: 02-10-2023 End: 05-12-2023 25-hydroxyvitamin D3 [Mass/volume] in Serum or Plasma VITAMIN D 25 HYDROXY Lab Routine Vitamin D deficiency Essential thrombocythemia (HCC) Expected: 02/10/2023, Expires: 05/12/2023 [facility] Work Phone: Comment on above: Expected: 02/10/2023 , Expires: 05/12/2023 Start: 02-10-2023 End: 05-12-2023 CBC W Auto Differential panel - Blood ABS GRAN CT + CBC Lab Routine Essential thrombocythemia (HCC) Encounter for long-term current use of medication Expected: 02/10/2023, Expires: 05/12/2023 [facility] Work Phone: Comment on above: Expected: 02/10/2023 , Expires: 05/12/2023 Start: 02-10-2023 End: 05-12-2023 Comprehensive metabolic 2000 panel - Serum or Plasma COMP METABOLIC PANEL Lab Routine Essential thrombocythemia (HCC) Encounter for long-term current use of medication Expected: 02/10/2023, Expires: 05/12/2023 [facility] Work Phone: Comment on above: Expected: 02/10/2023 , Expires: 05/12/2023 Start: 02-10-2023 End: 05-12-2023 Lactate dehydrogenase [Enzymatic activity/volume] in Serum or Plasma LD LACTATE DEHYDRO Lab Routine Essential thrombocythemia (HCC) Expected: 02/10/2023, Expires: 05/12/2023 [facility] Work Phone: Comment on above: Expected: 02/10/2023 , Expires: 05/12/2023 Start: 02-10-2023 End: 05-12-2023 Magnesium [Mass/volume] in Serum or Plasma MAGNESIUM BLD Lab Routine Essential thrombocythemia (HCC) Encounter for long-term current use of medication Expected: 02/10/2023, Expires: 05/12/2023 [facility] Work Phone: Comment on above: Expected: 02/10/2023 , Expires: 05/12/2023 Start: 02-04-2023 Urine microalbumin profile [facility] Comment on above: Postponed from 06/07 (Declined at this time) Start: 01-12-2023 FECAL OCCULT BLOOD FECAL OCCULT BLOO D [facility] Start: 12-23-2022 Covid-19 Vaccine (2022- season) Covid-19 Vaccine ( season) [facility] Start: 12-23-2022 Influenza vaccination Influenza Vacc ine (#1) [facility] Start: 07-05-2022 Covid-19 Vaccine (6 - Moderna series) Covid-19 Vaccine (6 - Moderna series) [facility] Start: 04-24-2022 ADVANCE DIRECTIVE DISCUSSION ADVANCE DIRECTIVE DISCUSSION [facility] Start: 04-24-2022 DEPRESSION ASSESSMENT DEPRESSION ASS ESSMENT [facility] Start: 12-23-2021 Influenza vaccination INFLUENZA (#1) [facility] Start: 11-27-2021 Screening for osteoporosis Bone Density Screening [facility] Start: 11-10-2021 COVID-19 VACCINE (5 - Booster for Moderna series) COVID-19 VACCINE (5 - Booster for Moderna series) [facility] Start: 07-15-2021 COVID-19 VACCINE (4 - Booster for Moderna series) COVID-19 VACCINE (4 - Booster for Moderna series) [facility] Start: 04-24-2021 DEPRESSION ASSESSMENT DEPRESSION ASS ESSMENT [facility] Start: 12-10-2016 FECAL OCCULT BLOOD FECAL OCCULT BLOO D [facility] Start: 1999 RSV Vaccine (1 - 1-dose 60+ series) RSV Vaccine (1 - 1-dose 60+ series) [facility] Start: 10-22-1972 Medicare Annual Wellness Visit Medicare Annual Wellness Visit [facility] Start: 1958 Urine microalbumin profile [facility] Start: 1957 Depression Screening Depression Scre ening [facility] End: 08-03-2022 25-hydroxyvitamin D3 [Mass/volume] in Serum or Plasma VITAMIN D 25 HYDROXY Lab Routine Vitamin D deficiency Every 6 months for 3 Occurrences starting 08/03/2021 until 08/03/2022 [facility] Work Phone: Comment on above: Every 6 months for 3 Occurrences starting 08/03/2021 until 08/03/2022 End: 12-13-2024 BD DXA TRABECULAR BONE SCORE (TBS) BD DXA TRABECULAR BONE SCORE (TBS) Radiology Routine Age-related osteoporosis without current pathological fracture 1 Occurrences starting 11/14/2023 until 12/13/2024 [facility] Comment on above: 1 Occurrences starti ng 11/14/2023 until 12/13/2024 End: 08-03-2022 CBC W Auto Differential panel - Blood ABS GRAN CT + CBC Lab Routine Essential thrombocythemia (HCC) Every 6 months for 3 Occurrences starting 08/03/2021 until 08/03/2022 [facility] Work Phone: Comment on above: Every 6 months for 3 Occurrences starting 08/03/2021 until 08/03/2022 End: 08-03-2022 Comprehensive metabolic 2000 panel - Serum or Plasma COMP METABOLIC PANEL Lab Routine Essential thrombocythemia (HCC) Essential hypertension, benign Every 6 months for 3 Occurrences starting 08/03/2021 until 08/03/2022 [facility] Work Phone: Comment on above: Every 6 months for 3 Occurrences starting 08/03/2021 until 08/03/2022 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 CYTOLOGY NON-GY N Lab Routine Abnormal ultrasound of thyroid gland 07/28/2023 3:27 PM EDT [facility] Work Phone: End: 12-13-2024 DBT Breast - bilateral screening MARY SCREENING W BRAD Radiology Routine Screening mammogram for breast cancer 1 Occurrences starting 11/14/2023 until 12/13/2024 [facility] Work Phone: Comment on above: 1 Occurrences starti ng 11/14/2023 until 12/13/2024 End: 01-17-2026 DBT Breast - bilateral screening MARY SCREENING W BRAD Radiology Routine Screening mammogram for breast cancer 1 Occurrences starting 12/18/2024 until 01/17/2026 [facility] Work Phone: Comment on above: 1 Occurrences starti ng 12/18/2024 until 01/17/2026 End: 09-02-2022 Dxa bone density study 1/> sites axial skel DXA-AXIAL SKELETON Radiology Routine Asymptomatic postmenopausal status 1 Occurrences starting 08/03/2021 until 09/02/2022 [facility] Work Phone: Comment on above: 1 Occurrences starti ng 08/03/2021 until 09/02/2022 End: 12-13-2024 DXA Skeletal system.axial Views for bone density DXA-AXIAL SKELETON Radiology Routine Age-related osteoporosis without current pathological fracture 1 Occurrences starting 11/14/2023 until 12/13/2024 [facility] Comment on above: 1 Occurrences starti ng 11/14/2023 until 12/13/2024 Hemoglobin.gastroint es tinal.lower [Presence] in Stool by Immunoassay IMMUNOCHEMICAL FECAL OCCULT BLOOD TEST Lab Routine Diarrhea, unspecified type Ordered: 01/12/2024 [facility] Work Phone: Comment on above: Ordered: 01/12/2024 End: 08-03-2022 Lactate dehydrogenase [Enzymatic activity/volume] in Serum or Plasma LD LACTATE DEHYDRO Lab Routine Essential hypertension, benign Every 6 months for 3 Occurrences starting 08/03/2021 until 08/03/2022 [facility] Work Phone: Comment on above: Every 6 months for 3 Occurrences starting 08/03/2021 until 08/03/2022 End: 09-02-2022 MARY SCREENING W BRAD MARY SCREENING W BRAD Radiology Routine Asymptomatic postmenopausal status Breast cancer screening by mammogram 1 Occurrences starting 08/03/2021 until 09/02/2022 [facility] Work Phone: Comment on above: 1 Occurrences starti ng 08/03/2021 until 09/02/2022 [facility] Immunizations Immunization Date Immunization Notes Care Provider Umair tobar 02-21-2024 COVID-19 vaccine, ag e 12+ yr (PFIZER-BIONTECH COMIRNATY) Immunization [place] Work Phone: [facility] 02-21-2024 influenza, high dose seasonal, preservative-free Immunization [place] Work Phone: [facility] 02-21-2024 influenza virus vaccine, unspecified formulation Shai Saxena ENVIRONMENTAL LEAD.DINING ROOM SUPERVISOR Work Phone: [facility] 04-13-2023 respiratory syncytia l virus (RSV) vaccine, adjuvanted (AREXVY) Laurence Martin MD Work Phone: [facility] 03-14-2023 COVID-19 vaccine, ag e 12+ yr, season (PFIZER-BIONTECH) Mago Lux ENVIRONMENTAL LEAD.SENIOR BUSINESS DEVELOPMENT MANAGER Work Phone: [facility] 02-14-2023 influenza (HD-IIV4) vaccine, age 65+ yr, high dose, quadrivalent, PF (FLUZONE HIGH-DOSE) Mago Lux ENVIRONMENTAL LEAD.SENIOR BUSINESS DEVELOPMENT MANAGER Work Phone: [facility] 02-14-2023 pneumococcal conjuga te (PCV20) vaccine, 20 valent (PREVNAR 20) Mago Lux ENVIRONMENTAL LEAD.SENIOR BUSINESS DEVELOPMENT MANAGER Work Phone: [facility] 02-14-2023 influenza virus vaccine, unspecified formulation Laurence Martin MD Work Phone: [facility] 02-10-2023 pneumococcal Conjuga te, unspecified formulation Laurence Martin MD Work Phone: [facility] Work Phone: 02-04-2022 influenza, high-dose , quadrivalent vaccine (FLUZONE HIGH DOSE QUADRIVALENT) [facility] Provider [facility] 02-04-2022 influenza virus vaccine, unspecified formulation Laurence Martin MD Work Phone: [facility] 01-15-2021 influenza, high-dose , quadrivalent vaccine (FLUZONE HIGH DOSE QUADRIVALENT) Laurence Martin MD Work Phone: [facility] Work Phone: 06-19-2020 Covid (Moderna) [facility] Work Phone: 05-22-2020 Covid (Moderna) [facility] Work Phone: 01-16-2020 influenza, high-dose , quadrivalent vaccine (FLUZONE HIGH DOSE QUADRIVALENT) Laurence Martin MD Work Phone: [facility] 08-01-2018 zoster vaccine recombinant Laurence Martin MD Work Phone: [facility] Work Phone: 02-14-2018 influenza, high dose seasonal, preservative-free Laurence Martin MD Work Phone: [facility] 10-18-2017 zoster vaccine recombinant Laurenec Martin MD Work Phone: [facility] Work Phone: 01-30-2017 influenza, high dose seasonal, preservative-free Laurence Martin MD Work Phone: [facility] Work Phone: 02-13-2016 influenza, high dose seasonal, preservative-free Laurence Martin MD Work Phone: [facility] 11-24-2015 pneumococcal conjuga te vaccine, 13 valent Laurence Martin MD Work Phone: [facility] 03-07-2015 influenza, high dose seasonal, preservative-free Laurence Martin MD Work Phone: [facility] Work Phone: 01-28-2014 influenza, high dose seasonal, preservative-free Laurence Martin MD Work Phone: [facility] 10-02-2013 zoster vaccine, live Laurence farrell MD Work Phone: [facility] 03-04-2013 influenza virus vaccine, unspecified formulation Laurence Martin MD Work Phone: [facility] 02-11-2012 influenza virus vaccine, unspecified formulation Laurence Martin MD Work Phone: [facility] 02-12-2011 influenza virus vaccine, unspecified formulation Laurence Martin MD Work Phone: [facility] Work Phone: 02-27-2010 influenza virus vaccine, unspecified formulation Laurence Martin MD Work Phone: [facility] Work Phone: 02-03-2009 influenza virus vaccine, unspecified formulation Laurence Martin MD Work Phone: [facility] Work Phone: 10-22-2008 tetanus immune globulin Laurence Martin MD Work Phone: [facility] Work Phone: 02-27-2008 influenza virus vaccine, unspecified formulation Laurence Martin MD Work Phone: [facility] 02-21-2007 influenza virus vaccine, unspecified formulation Laurence Martin MD Work Phone: [facility] Work Phone: 07-03-2006 pneumococcal polysaccharide vaccine, 23 valent Laurence Martin MD Work Phone: [facility] Work Phone: 02-21-2006 influenza virus vaccine, unspecified formulation Laurence Martin MD Work Phone: [facility] Work Phone: Payers Date Payer Category Payer Self-pay [id number] 2015 Private Health Insurance [employer] Isabel ROSADO PPO [id number] 2015-Present [phone] [facility] [id number] [place] [id number] O [id number] 2015 Private Health Insurance [id number] 2015 Private Health Insurance [id number] 1972 Medicare MEDICARE MEDICAR E A AND B [id number] 1972-Present [phone] [address] [address] [place] [address] Medicare [id number] 1972 Medicare [id number] 1972 Medicare [id number] Unknown [id number] Social History Date Type Detail Facility Start: 08-15-2019 Tobacco smoking status NCIS Unknown if ever smoked [facility] Start: 1940 Sex Assigned At Female [facility] Start: 11-19-2010 End: 02-04-2022 Tobacco smoking status NHIS Never smoked tobacco [facility] Start: 11-08-2020 End: 09-17-2024 Alcohol intake Current non-drinker of alcohol (finding) [facility] Start: 01-14-2020 End: 08-08-2022 History SDOH Alcohol Frequency 1 [facility] Start: 01-14-2020 History SDOH Alcohol Std Drinks 98 [facility] Start: 01-14-2020 History SDOH Social Connections Phone 5 [facility] Start: 01-14-2020 End: 08-08-2022 History SDOH Social Connections Get Together 2 [facility] Start: 01-14-2020 End: 08-08-2022 History SDOH Social Connections Living 3 [facility] Start: 01-14-2020 Education 12 [facility] Start: 07-19-2020 End: 02-04-2022 Exposure to SARS-CoV-2 (event) Not sure [facility] Start: 11-19-2010 End: 02-04-2022 Tobacco use and exposure Smokeless tobacco non-user [facility] Start: 08-08-2022 History SDOH Alcohol Std Drinks 0 [facility] Start: 08-08-2022 History SDOH Financial 4 [facility] Start: 08-07-2022 End: 02-14-2023 History of Social function [facility] Start: 08-07-2022 End: 02-14-2023 Social connection and isolation panel [facility] Do you belong to any clubs or organizations such as baptism groups, unions, fraternal or athletic groups, or school groups? No [facility] Are you now , , , , never or living with a partner? [facility] How often to you hav e a drink containing alcohol? Never [facility] Start: 03-25-2012 How many standard drinks containing alcohol do you have on a typical day? Patient does not drink [facility] How hard is it for y ou to pay for the very basics like food, housing, medical care, and heating Not very hard [facility] Do you feel stress - tense, restless, nervous, or anxious, or unable to sleep at night because your mind is troubled all the time - these days [OSQ] Not at all [facility] (I/We) worried wheth er (my/our) food would run out before (I/we) got money to buy more. Never true [facility] Start: 08-13-2018 Sexual orientation Heterosexual (finding) [facility] Do you feel stress - tense, restless, nervous, or anxious, or unable to sleep at night because your mind is troubled all the time - these days [OSQ] Only a little [facility] Start: 1940 Sex assigned at Not on file [facility] Functional Status Date Assessment Result Facility 10-14-2014 Are you deaf, or do you have serious difficulty hearing No 10/14/2014 3:49 PM EDT Malena Sabillon No [facility] 10-14-2014 Are you blind, or do you have serious difficulty seeing, even when wearing glasses No 10/14/2014 3:49 PM EDT Malena Sabillon No [facility] 10-14-2014 Do you have serious difficulty walking or climbing stairs No 10/14/2014 3:49 PM EDT Malena Sabillon No [facility] 10-14-2014 Do you have difficul ty dressing or bathing No 10/14/2014 3:49 PM EDT ItzeldimitriMalena sorenson No [facility] 10-14-2014 Because of a physica l, mental, or emotional condition, do you have difficulty doing errands alone such as visiting a physician's office or shopping No 10/14/2014 3:49 PM EDT [facility] No [facility] Mental Status Date Assessment Result Facility 10-14-2014 Because of a physica l, mental, or emotional condition, do you have serious difficulty concentrating, remembering, or making decisions No 10/14/2014 3:49 PM EDT RidgePeterana Andersen [facility] Clinical Notes 02-22-2019 to 12-24-2024 Irina Ding MA - 12/24/2024 1:12 PM EDTTelephone Encounter - Arlen Samuel LPN - 12/18/2024 1:12 PM EDTTelephone Encounter - Arlen Samuel LPN - 12/18/2024 1:12 PM EDTPatient Instructions Note Date & Type Note Facility 12-24-2024 Note HNO ID: [id number] Author: IRINA DING MA Service: ? Author Type: Supervisor Whipped Topping Type: Progress Notes Filed: 12/24/2024 13:15 Note Text: POPULATION HEALTH NAVIGATION OUTREACH Action/I POPULATION HEALTH NAVIGATION OUTREACH Action/I chart reivew Topic Due (Y or N) Comments Medicare Wellness PCP Follow up Colorectal Cancer Screening Controlling Blood Pressure A1C HCC Flu Vaccine Care Everywhere Reviewed MyChart Activation Updated Appointment Note Reason for Outreach Care Gap/HCC or Scheduling Wellness Visits Care Gaps due: N/A Patient Contacted: Patient in other facility or Active Cancer Treatment - End Outreach Navigation Signature: Irina Ding MA December 24, 2024 1:14 PM Reason for Outreach Care Gap/HCC or Scheduling Wellness Visits Care Gaps due: N/A Patient Contacted: Unable or unnecessary to reach patient: Chart Review only Navigation Signature: Irina Ding MA December 24, 2024 1:13 PM [facility] 12-24-2024 History of Presen t illness Narrative POPULATION HEALTH NAVIGATION OUTREACH Action/FYI POPULATION HEALTH NAVIGATION OUTREACH Action/FYI chart reivew Topic Due (Y or N) Comments Medicare Wellness PCP Follow up Colorectal Cancer Screening Controlling Blood Pressure A1C HCC Flu Vaccine Care Everywhere Reviewed MyChart Activation Updated Appointment Note Reason for Outreach Care Gap/HCC or Scheduling Wellness Visits Care Gaps due: N/A Patient Contacted: Patient in other facility or Active Cancer Treatment - End Outreach Navigation Signature: Irina Ding MA December 24, 2024 1:14 PM Reason for Outreach Care Gap/HCC or Scheduling Wellness Visits Care Gaps due: N/A Patient Contacted: Unable or unnecessary to reach patient: Chart Review only Navigation Signature: Irina Ding MA December 24, 2024 1:13 PM documented in this encounter [facility] 12-24-2024 Note Patient Outreach (NE TNAV) EILEEN MCKINLEY ([id number]) 1940 F Date Time Provider Department 12/24/24 IRINA DING NETNAV During your visit today, we recorded the following information about you: Irina Ding MA 12/24/2024 1:15 PM Signed POPULATION HEALTH NAVIGATION OUTREACH Action/FYI POPULATION HEALTH NAVIGATION OUTREACH Action/I chart reivew Topic Due (Y or N) Comments Medicare Wellness PCP Follow up Colorectal Cancer Screening Controlling Blood Pressure A1C HCC Flu Vaccine Care Everywhere Reviewed MyChart Activation Updated Appointment Note Reason for Outreach Care Gap/HCC or Scheduling Wellness Visits Care Gaps due: N/A Patient Contacted: Patient in other facility or Active Cancer Treatment - End Outreach Navigation Signature: Irina Ding MA December 24, 2024 1:14 PM Reason for Outreach Care Gap/HCC or Scheduling Wellness Visits Care Gaps due: N/A Patient Contacted: Unable or unnecessary to reach patient: Chart Review only Navigation Signature: Irina Ding MA December 24, 2024 1:13 PM Allergies As of Date: 12/24/2024 Noted Allergy Reaction AMITRIPTYLINE 02/25/2005 Comments: Dry mouth CYMBALTA (DULOXETINE) 02/25/2005 Comments: Dry mouth,diarrhea, blurred vision NIACIN 02/25/2005 2 - Rash Date Reviewed: 09/17/2024 Reviewed by: Shai Saxena APRN.DINING ROOM SUPERVISOR - Fully Assessed Reason for Visit: Population Health Navigation Outreach [3910] Cmt: KEVIN [employer] PCSA Prescriptions as of 12/24/2024 - gabapentin (NEURONTIN) 300 mg capsule Take 2 capsules by mouth three times a day for 180 days. In addition to 100 mg capsule - gabapentin (NEURONTIN) 100 mg capsule Take 1 capsule by mouth every morning AND 1-2 capsules every evening AND 1 capsule daily at bedtime. Do all this for 180 days. In addition to 600 mg dose. - lisinopril (ZESTRIL) 10 mg tablet Take 1 tablet by mouth once daily. - pentoxifylline ER (TRENTAL) 400 mg CR tablet Take 1 tablet by mouth two times a day. - verapamil SR (CALAN SR) 180 mg CR tablet Take 1 tablet by mouth daily at bedtime. - omeprazole (PRILOSEC) 20 mg capsule Take 1 capsule by mouth once daily. - nystatin (MYCOSTATIN) cream Apply 1 application to affected area two times a day. - ibuprofen (ADVIL) 200 mg tablet Take 600 mg by mouth every 6 hours as needed for pain. - nitroglycerin 0.4 % (w/w) oint by RECTAL route two times a day as needed. - nitroglycerin ointment 0.2% (CPD) by RECTAL route twice daily as needed. - Cholecalciferol, Vitamin D3, 2,000 unit cap Take 1 capsule by mouth once daily. - polyethylene glycol 3350 (MIRALAX) 17 gram/dose powder Take 17 g by mouth once daily. Mix with 8 ounces of liquid and allow sufficient time to dissolve. (1 capful equals 17 g), (Canister please) - aspirin, enteric coated (ASPIRIN, ENTERIC COATED) 81 mg EC tablet Take 162 mg by mouth two times a day. - PSYLLIUM SEED, WITH SUGAR, (METAMUCIL ORAL) Take by mouth. 3 times daily - docusate sodium (COLACE) 100 mg capsule Take two capsules by mouth once daily. - VITAMIN E 400 UNIT CAP Take one(1) tablet twice daily. - CENTRUM SILVER TABLET Take (1) one tablet daily - LUTEIN 6MG SOFTGEL Take one(1) tablet daily. 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] 12/21/2010 Raynaud's syndrome [I73.00] 06/08/2011 Fracture of fifth metacarpal bone of left hand *08/06/2012 11/24/2015 Anxiety [F41.9] 04/23/2013 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 Pt notified via my chart. [facility] 12-18-2024 Miscellaneous Notes Faxed to [facility]. Pt notified via my chart. Filed order Patient calling and is asking for mammogram order to be placed and then faxed over to [facility]. Please review and advise, Bobbi Tinoco RN documented in this encounter [facility] 12-18-2024 Telephone encounter Note Filed order [facility] 12-18-2024 Telephone encounter Note Patient calling and is asking for mammogram order to be placed and then faxed over to [facility]. Please review and advise, Bobbi Tinoco RN [facility] 09-18-2024 Progress note Formatting of t his note might be different from the original. Overall labs stable. Will monitor slight elevation in platelets. Shai Saxena APRN.CNP [facility] 09-18-2024 Miscellaneous Notes Overall labs stable. Will monitor slight elevation in platelets. Shai Saxena APRN.CNP documented in this encounter [facility] 09-17-2024 Note HNO ID: [id number] Author: SHAI SAXENA APRN.EDGAR Service: ? Author Type: Nurse Practitioner Type: Progress Notes Filed: 09/17/2024 14:48 Note Text: SUBJECTIVE Eileen Mckinley is a 84 year old female here today for a check up on her medical problems. Chief Complaint Patient presents with: F/U 6 months HPI Eileen Mckinley is a 84 year old female. She is an established patient of Laurence Martin MD. Here today for a 6 month follow up. Overall doing okay, concerned about her husbands health. Sleep is okay. Pain is about the same, manageable. Blood pressure is controlled. No recent GERD issues. Due for blood work. Her medications were reviewed today and her list is now up to date. Medications Current Outpatient Medications Medication Sig gabapentin (NEURONTIN) 300 mg capsule Take 2 capsules by mouth three times a day for 180 days. In addition to 100 mg capsule gabapentin (NEURONTIN) 100 mg capsule Take 1 capsule by mouth every morning AND 1-2 capsules every evening AND 1 capsule daily at bedtime. Do all this for 180 days. In addition to 600 mg dose. lisinopril (ZESTRIL) 10 mg tablet Take 1 tablet by mouth once daily. pentoxifylline ER (TRENTAL) 400 mg CR tablet Take 1 tablet by mouth two times a day. verapamil SR (CALAN SR) 180 mg CR tablet Take 1 tablet by mouth daily at bedtime. omeprazole (PRILOSEC) 20 mg capsule Take 1 capsule by mouth once daily. nystatin (MYCOSTATIN) cream Apply 1 application to affected area two times a day. ibuprofen (ADVIL) 200 mg tablet Take 600 mg by mouth every 6 hours as needed for pain. nitroglycerin 0.4 % (w/w) oint by RECTAL route two times a day as needed. nitroglycerin ointment 0.2% (CPD) by RECTAL route twice daily as needed. Cholecalciferol, Vitamin D3, 2,000 unit cap Take 1 capsule by mouth once daily. polyethylene glycol 3350 (MIRALAX) 17 gram/dose powder Take 17 g by mouth once daily. Mix with 8 ounces of liquid and allow sufficient time to dissolve. (1 capful equals 17 g), (Canister please) aspirin, enteric coated (ASPIRIN, ENTERIC COATED) 81 mg EC tablet Take 162 mg by mouth two times a day. PSYLLIUM SEED, WITH SUGAR, (METAMUCIL ORAL) Take by mouth. 3 times daily docusate sodium (COLACE) 100 mg capsule Take two capsules by mouth once daily. VITAMIN E 400 UNIT CAP Take one(1) tablet twice daily. CENTRUM SILVER TABLET Take (1) one tablet daily LUTEIN 6MG SOFTGEL Take one(1) tablet daily. No current facility-administered medications for this visit. 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 Respiratory: Negative. Cardiovascular: Negative. OBJECTIVE BP 110/50 Pulse 79 Wt 119 lb 7.8 oz (54.2kg) SpO2 97% Physical Exam Vitals and nursing note reviewed. Constitutional: General: She is awake. She is not in acute distress. Appearance: Normal appearance. She is well-developed and well-groomed. She is not ill-appearing, toxic-appearing or diaphoretic. HENT: Head: Normocephalic. Right Ear: External ear normal. Left Ear: External ear normal. Nose: Nose normal. Eyes: General: Vision grossly intact. Conjunctiva/sclera: Conjunctivae normal. Pupils: Pupils are equal, round, and reactive to light. Neck: Vascular: No JVD. Trachea: Trachea normal. Cardiovascular: Rate and Rhythm: Normal rate and regular rhythm. Pulses: Normal pulses. Heart sounds: Normal heart sounds. No murmur heard. Pulmonary: Effort: Pulmonary effort is normal. No accessory muscle usage, prolonged expiration or respiratory distress. Breath sounds: Normal breath sounds. Musculoskeletal: Cervical back: Neck supple. Skin: General: Skin is warm and dry. Capillary Refill: Capillary refill takes less than 2 seconds. Neurological: General: No focal deficit present. Mental Status: She is alert and oriented to person, place, and time. Mental status is at baseline. Psychiatric: Attention and Perception: Attention and perception normal. Mood and Affect: Mood and affect normal. Speech: Speech normal. Behavior: Behavior normal. Behavior is cooperative. Thought Content: Thought content normal. Cognition and Memory: (more content not included)... [facility] 09-17-2024 History of Presen t illness Narrative SUBJECTIVE Eileen Mckinley is a 84 year old female here today for a check up on her medical problems. Chief Complaint Patient presents with: F/U 6 months HPI Eileen Mckinley is a 84 year old female. She is an established patient of Laurence Martin MD. Here today for a 6 month follow up. Overall doing okay, concerned about her husbands health. Sleep is okay. Pain is about the same, manageable. Blood pressure is controlled. No recent GERD issues. Due for blood work. Her medications were reviewed today and her list is now up to date. Medications Current Outpatient Medications Medication Sig gabapentin (NEURONTIN) 300 mg capsule Take 2 capsules by mouth three times a day for 180 days. In addition to 100 mg capsule gabapentin (NEURONTIN) 100 mg capsule Take 1 capsule by mouth every morning AND 1-2 capsules every evening AND 1 capsule daily at bedtime. Do all this for 180 days. In addition to 600 mg dose. lisinopril (ZESTRIL) 10 mg tablet Take 1 tablet by mouth once daily. pentoxifylline ER (TRENTAL) 400 mg CR tablet Take 1 tablet by mouth two times a day. verapamil SR (CALAN SR) 180 mg CR tablet Take 1 tablet by mouth daily at bedtime. omeprazole (PRILOSEC) 20 mg capsule Take 1 capsule by mouth once daily. nystatin (MYCOSTATIN) cream Apply 1 application to affected area two times a day. ibuprofen (ADVIL) 200 mg tablet Take 600 mg by mouth every 6 hours as needed for pain. nitroglycerin 0.4 % (w/w) oint by RECTAL route two times a day as needed. nitroglycerin ointment 0.2% (CPD) by RECTAL route twice daily as needed. Cholecalciferol, Vitamin D3, 2,000 unit cap Take 1 capsule by mouth once daily. polyethylene glycol 3350 (MIRALAX) 17 gram/dose powder Take 17 g by mouth once daily. Mix with 8 ounces of liquid and allow sufficient time to dissolve. (1 capful equals 17 g), (Canister please) aspirin, enteric coated (ASPIRIN, ENTERIC COATED) 81 mg EC tablet Take 162 mg by mouth two times a day. PSYLLIUM SEED, WITH SUGAR, (METAMUCIL ORAL) Take by mouth. 3 times daily docusate sodium (COLACE) 100 mg capsule Take two capsules by mouth once daily. VITAMIN E 400 UNIT CAP Take one(1) tablet twice daily. CENTRUM SILVER TABLET Take (1) one tablet daily LUTEIN 6MG SOFTGEL Take one(1) tablet daily. No current facility-administered medications for this visit. 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 Respiratory: Negative. Cardiovascular: Negative. OBJECTIVE BP 110/50 Pulse 79 Wt 119 lb 7.8 oz (54.2kg) SpO2 97% Physical Exam Vitals and nursing note reviewed. Constitutional: General: She is awake. She is not in acute distress. Appearance: Normal appearance. She is well-developed and well-groomed. She is not ill-appearing, toxic-appearing or diaphoretic. HENT: Head: Normocephalic. Right Ear: External ear normal. Left Ear: External ear normal. Nose: Nose normal. Eyes: General: Vision grossly intact. Conjunctiva/sclera: Conjunctivae normal. Pupils: Pupils are equal, round, and reactive to light. Neck: Vascular: No JVD. Trachea: Trachea normal. Cardiovascular: Rate and Rhythm: Normal rate and regular rhythm. Pulses: Normal pulses. Heart sounds: Normal heart sounds. No murmur heard. Pulmonary: Effort: Pulmonary effort is normal. No accessory muscle usage, prolonged expiration or respiratory distress. Breath sounds: Normal breath sounds. Musculoskeletal: Cervical back: Neck supple. Skin: General: Skin is warm and dry. Capillary Refill: Capillary refill takes less than 2 seconds. Neurological: General: No focal deficit present. Mental Status: She is alert and oriented to person, place, and time. Mental status is at baseline. Psychiatric: Attention and Perception: Attention and perception normal. Mood and Affect: Mood and affect normal. Speech: Speech normal. Behavior: Behavior normal. Behavior is cooperative. Thought Content: Thought content normal. Cognition and Memory: Cognition and memory normal. Judgment: Judgment normal. ASSESSMENT/PLAN: 1. 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 2. Essential hypertension, benign - ICD9: 401.1, ICD10: I10 - Controlled, stable. - Continue current medications - Recommend home blood pressure monitoring, to bring results to next visit - Encouraged sodium restriction, DASH or Mediterranean diet - Recommend regular aerobic exercise 3. Vitamin D deficiency - ICD9: 268.9, ICD10: E55.9 - VITAMIN D 25 HYDROXY 4. Gastroesophageal reflux disease, unspecified whether esophagitis present - ICD9: 530.81, ICD10: K21.9 - Discussed lifestyle modifications including losing weight, limiting caffeine, no meals three hours before sleep, and head of bed elevation 5. Encounter for therapeutic drug monitoring - ICD9: V58.83, ICD10: Z51.81 - COMPLETE BLOOD COUNT AND DIFFERENTIAL - COMPREHENSIVE METABOLIC PANEL - MAGNESIUM Portions of this note have been entered by ancillary staff. I have reviewed and when necessary edited, so that they are an adequate record of my encounter with this patient Please note that parts of this document were created using voice recognition software and therefore may contain grammatical errors. Patient verbalizes understanding of instructions from today's visit and in agreement with treatment plan. Questions answered. Agrees to call the office if questions, concerns of issues with acute symptoms not improving or if they worsen. See diagnoses and orders for additional plan(s). Allergies and medications were reviewed, list was updated, and refills given if needed. Past medical, surgical, social, and family history reviewed and updated as appropriate. Encouraged proper diet & exercise as well as compliance with taking medications. Age-appropriate health preventative measures were discussed. Return if symptoms worsen or fail to improve, for Keep next scheduled appointment.. Shai Saxena APRN-EDGAR documented in this encounter [facility] 09-03-2024 Telephone encounter Note Prescription Refill Information The patient has been identified by name and date of : Yes Caregiver verified no other encounters exist for this prescription request: Yes Caregiver confirmed with patient/requestor that no other refills are due, in the near future, with this provider at this time: Yes The last office visit in the department: 03/19/24 Does the patient have a future office visit with this provider/department: Yes 09/17/24 Requested Prescriptions Pending Prescriptions Disp Refills gabapentin (NEURONTIN) 300 mg capsule 540 capsule 1 Sig: Take 2 capsules by mouth three times a day for 180 days. In addition to 100 mg capsule Jennifer Ardon LPN September 03, 2024 7:48 AM [facility] 09-03-2024 Miscellaneous Notes Prescription Refill Information The patient has been identified by name and date of : Yes Caregiver verified no other encounters exist for this prescription request: Yes Caregiver confirmed with patient/requestor that no other refills are due, in the near future, with this provider at this time: Yes The last office visit in the department: 03/19/24 Does the patient have a future office visit with this provider/department: Yes 09/17/24 Requested Prescriptions Pending Prescriptions Disp Refills gabapentin (NEURONTIN) 300 mg capsule 540 capsule 1 Sig: Take 2 capsules by mouth three times a day for 180 days. In addition to 100 mg capsule Jennifer Ardon LPN September 03, 2024 7:48 AM documented in this encounter [facility] 09-03-2024 Telephone encounter Note Prescription Refill Information The patient has been identified by name and date of : Yes Caregiver verified no other encounters exist for this prescription request: Yes Caregiver confirmed with patient/requestor that no other refills are due, in the near future, with this provider at this time: Yes The last office visit in the department: 03/19/24 Does the patient have a future office visit with this provider/department: Yes 09/17/24 Requested Prescriptions Pending Prescriptions Disp Refills gabapentin (NEURONTIN) 100 mg capsule 320 capsule 1 Sig: Take 1 capsule by mouth every morning AND 1-2 capsules every evening AND 1 capsule daily at bedtime. Do all this for 180 days. In addition to 600 mg dose. Jennifer Ardon LPN September 03, 2024 7:28 AM [facility] 09-03-2024 Miscellaneous Notes Prescription Refill Information The patient has been identified by name and date of : Yes Caregiver verified no other encounters exist for this prescription request: Yes Caregiver confirmed with patient/requestor that no other refills are due, in the near future, with this provider at this time: Yes The last office visit in the department: 03/19/24 Does the patient have a future office visit with this provider/department: Yes 09/17/24 Requested Prescriptions Pending Prescriptions Disp Refills gabapentin (NEURONTIN) 100 mg capsule 320 capsule 1 Sig: Take 1 capsule by mouth every morning AND 1-2 capsules every evening AND 1 capsule daily at bedtime. Do all this for 180 days. In addition to 600 mg dose. Jennifer Ardon LPN September 03, 2024 7:28 AM documented in this encounter [facility] 05-17-2024 Telephone encounter Note Patient Service2Mediat message requesting the following refill Refill(s) Requested: Requested Prescriptions Pending Prescriptions Disp Refills lisinopril (ZESTRIL) 10 mg tablet 90 tablet 3 Sig: Take 1 tablet by mouth once daily. pentoxifylline ER (TRENTAL) 400 mg CR tablet 180 tablet 3 Sig: Take 1 tablet by mouth two times a day. verapamil SR (CALAN SR) 180 mg CR tablet 90 tablet 3 Sig: Take 1 tablet by mouth daily at bedtime. omeprazole (PRILOSEC) 20 mg capsule 90 capsule 3 Sig: Take 1 capsule by mouth once daily. ALLERGIES Allergen Reactions Amitriptyline Dry mouth Cymbalta [Duloxetin* Dry mouth,diarrhea, blurred vision Niacin Rash (home) [phone] (cell) Last Office Visit Date: 03/19/2024 Last [facility] [place] [facility] Visit: Visit date not found Future Appointment: 09 17 2024 The patients preferred pharmacy has been captured for this encounter? yes Request is for script(s) to be escript to pharmacy. Mora Dickinson LPN [facility] 05-17-2024 Miscellaneous Notes Patient Service2Mediat message requesting the following refill Refill(s) Requested: Requested Prescriptions Pending Prescriptions Disp Refills lisinopril (ZESTRIL) 10 mg tablet 90 tablet 3 Sig: Take 1 tablet by mouth once daily. pentoxifylline ER (TRENTAL) 400 mg CR tablet 180 tablet 3 Sig: Take 1 tablet by mouth two times a day. verapamil SR (CALAN SR) 180 mg CR tablet 90 tablet 3 Sig: Take 1 tablet by mouth daily at bedtime. omeprazole (PRILOSEC) 20 mg capsule 90 capsule 3 Sig: Take 1 capsule by mouth once daily. ALLERGIES Allergen Reactions Amitriptyline Dry mouth Cymbalta [Duloxetin* Dry mouth,diarrhea, blurred vision Niacin Rash (home) [phone] (cell) Last Office Visit Date: 03/19/2024 Last [facility] [place] [facility] Visit: Visit date not found Future Appointment: 09 17 2024 The patients preferred pharmacy has been captured for this encounter? yes Request is for script(s) to be escript to pharmacy. Mora Dickinson LPN documented in this encounter [facility] 05-14-2024 Telephone encounter Note Records show a valid rx at the pharmacy. Aliza Poole LPN [facility] 05-14-2024 Miscellaneous Notes Records show a valid rx at the pharmacy. Aliza Poole LPN documented in this encounter [facility] 05-03-2024 Telephone encounter Note The patient has been identified by name and date of : Yes Caregiver verified no other encounters exist for this prescription request: Yes Caregiver confirmed with patient/requestor that no other refills are due, in the near future, with this provider at this time: Yes The last office visit in the department: 03/19/2024 Does the patient have a future office visit with this provider/department: Yes 09/17/2024 Requested Prescriptions Pending Prescriptions Disp Refills nystatin (MYCOSTATIN) cream 30 g 1 Sig: Apply 1 application to affected area two times a day. Aliza Poole LPN May 03, 2024 7:52 AM [facility] 05-03-2024 Miscellaneous Notes The patient has been identified by name and date of : Yes Caregiver verified no other encounters exist for this prescription request: Yes Caregiver confirmed with patient/requestor that no other refills are due, in the near future, with this provider at this time: Yes The last office visit in the department: 03/19/2024 Does the patient have a future office visit with this provider/department: Yes 09/17/2024 Requested Prescriptions Pending Prescriptions Disp Refills nystatin (MYCOSTATIN) cream 30 g 1 Sig: Apply 1 application to affected area two times a day. Aliza Poole LPN May 03, 2024 7:52 AM documented in this encounter [facility] 03-19-2024 Instructions Laurence Martin MD - 03/19/2024 10:41 AM EST - Continue taking Gabapentin as prescribed: 300 mg (2 pills) three times a day, plus an additional 100 mg as needed. - Complete your scheduled dental work before your next appointment with Dr. Pulido in April. - Follow up with Dr. Pulido in April to discuss your bone density and potential treatments. - Perform weight-bearing exercises, such as holding or carrying weights, at least 5 days a week to help improve bone density. - Complete your scheduled cataract surgery on April [address] Boyer. - Consider getting a tetanus shot at the pharmacy if needed. documented in this encounter [facility] 03-19-2024 History of Presen t illness Narrative This note was created using [employer]. Subjective Eileen Mckinley is a 83 year old female. Patient presents with: F/U 6 months SUBJECTIVE: Eileen Mckinley is a 83 year old year old lady here today for 6 month follow up appointment for review of medical conditions. Eileen Mckinley is an 83-year-old female, with a history of osteoporosis, presenting for a 6-month follow-up. Eileen reports recent bone density results from November 2023, showing a 1.1% improvement in the right femur but worsening in the lumbar spine compared to the November 30, 2021, bone density. The lumbar spine T-score was -2.4, Z-score 0.5; right femur total T-score -1.6, Z-score 0.7; and right femur neck T-score -1.7, Z-score 0.8. 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 Guadalupe, reviewed these results and advised a follow-up in April to recheck calcium and bone-related tests. If the results are not satisfactory, Dr. Guadalupe suggested starting Fosamax. Eileen has a history of taking Fosamax post-menopause but discontinued it due to dental work concerns. She plans to see her dentist next month for a tooth issue before her follow-up with Dr. Guadalupe in April. Eileen inquires about AlgaeCal, an [id number] calcium supplement recommended by her daughter, but is informed that calcium alone will not build bones. She is advised on the importance of weight-bearing exercises to improve bone density. She also mentions a previous bone density test in 2018 at a [facility] site and is considering where to have future tests for consistency. Eileen is currently taking gabapentin 600 mg in the morning and evening, and 900 mg at bedtime, but often adds an extra 100 mg, totaling 700 mg in the morning and evening. She reports that her pain has worsened over time, attributing it to aging bones. She also mentions upcoming cataract surgery scheduled for [address] Boyer and discusses her options for post-surgery vision correction. She denies any swelling and reports stable blood pressure readings in the 120s/60s. 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 Do all this for 180 days. In addition to 600 mg dose. ibuprofen (ADVIL) 200 mg tablet Take 600 mg by mouth every 6 hours as needed for pain. nystatin (MYCOSTATIN) cream Apply 1 application to affected area two times a day. nitroglycerin 0.4 % (w/w) oint by RECTAL route two times a day as needed. gabapentin (NEURONTIN) 300 mg capsule Take 2 capsules by mouth every morning AND 2 capsules every evening AND 3 capsules daily at bedtime. Do all this for 90 days. In addition to 100 mg capsule. lisinopril (ZESTRIL) 10 mg tablet Take 1 tablet by mouth once daily. pentoxifylline ER (TRENTAL) 400 mg CR tablet Take 1 tablet by mouth two times a day. verapamil SR (CALAN SR) 180 mg CR tablet Take 1 tablet by mouth daily at bedtime. omeprazole (PRILOSEC) 20 mg capsule Take 1 capsule by mouth once daily. nitroglycerin ointment 0.2% (CPD) by RECTAL route twice daily as needed. (Patient not taking: Reported on 03/14/2023) gabapentin (NEURONTIN) 100 mg capsule Take 1 capsule by mouth three times daily for 90 days. In addition to 600 mg dose Cholecalciferol, Vitamin D3, 2,000 unit cap Take 1 capsule by mouth once daily. polyethylene glycol 3350 (MIRALAX) 17 gram/dose powder Take 17 g by mouth once daily. Mix with 8 ounces of liquid and allow sufficient time to dissolve. (1 capful equals 17 g), (Canister please) aspirin, enteric coated (ASPIRIN, ENTERIC COATED) 81 mg EC tablet Take 162 mg by mouth two times a day. PSYLLIUM SEED, WITH SUGAR, (METAMUCIL ORAL) Take by mouth. 3 times daily docusate sodium (COLACE) 100 mg capsule Take two capsules by mouth once daily. VITAMIN E 400 UNIT CAP Take one(1) tablet twice daily. CENTRUM SILVER TABLET Take (1) one tablet daily LUTEIN 6MG SOFTGEL Take one(1) tablet daily. No current facility-administered medications for this visit. Review of Systems Objective BP 122/68 Pulse 93 Temp 37.3 C (99.1 F) Resp 18 Wt 56.2 kg (123 lb 14.4 oz) SpO2 97% BMI 21.95 kg/m Last 5 Encounter Wt Readings: Date: Wt: 03/19/2024 56.2 kg (123 lb 14.4 oz) 02/05/2024 55.9 kg (123 lb 3.2 oz) 09/29/2023 58.5 kg (129 lb) 06/12/2023 62.1 kg (137 lb) 03/14/2023 57.6 kg (127 lb) No waist measurement recorded Estimated body mass index is 21.95 kg/m as calculated from the following: Height as of 02/05/24: 160 cm (5' 3). Weight as of this encounter: 56.2 kg (123 lb 14.4 oz). Last 5 Encounter BP Readings: Date: BP: 03/19/2024 122/68 02/05/2024 96/60 09/29/2023 130/62 06/12/2023 138/70 03/14/2023 138/68 Physical Exam Constitutional: Appearance: Normal appearance. HENT: Head: Normocephalic. Eyes: Conjunctiva/sclera: Conjunctivae normal. Cardiovascular: Rate and Rhythm: Normal rate and regular rhythm. Heart sounds: Normal heart sounds. Pulmonary: Effort: Pulmonary effort is normal. Breath sounds: Normal breath sounds. Musculoskeletal: Right lower leg: No edema. Skin: General: Skin is warm and dry. Neurological: General: No focal deficit present. Mental Status: She is alert and oriented to person, place, and time. Psychiatric: Attention and Perception: Attention and perception normal. Mood and Affect: Mood and affect normal. Speech: Speech normal. Behavior: Behavior normal. Thought Content: Thought content normal. Cognition and Memory: Cognition normal. Judgment: Judgment normal. Latest Ref Rng 08/02/2022 03/06/2023 09/22/2023 02/08/2024 02/23/2024 Color Yellow Yellow Clarity Clear Cloudy ! Glucose, Urine Negative Negative Bilirubin, Urine Negative Negative Ketones, Urine Negative Negative Specific [place], Ur 1.005 - 1.030 1.006 Hemoglobin/Blood,Ur Negative 2+ ! pH, Urine <8.5 7.5 Protein, Urine Negative Negative Urobilinogen 0.2-1.0 EU/dL 0.2 EU/dL Nitrites Negative Negative Leukest Negative 3+ ! WBC, Urine 0-5 /HPF >20 /HPF ! RBC, Urine 0-2 /HPF 0-2 /HPF Bacteria uL Negative uL 2,239.0 (H) Epithelial Cells /HPF None Seen Hyaline Cast 0 /LPF 0 /LPF Protein, Total 6.3 - 8.0 g/dL 6.3 6.8 6.2 (L) 6.8 Albumin 3.9 - 4.9 g/dL 4.2 4.3 4.1 4.2 Calcium 8.5 - 10.2 mg/dL 9.7 9.4 9.5 9.7 Bilirubin, Total 0.2 - 1.3 mg/dL 0.3 0.3 0.3 0.3 Alkaline Phosphatase 34 - 123 U/L 74 78 79 67 AST 13 - 35 U/L 15 14 17 16 ALT 7 - 38 U/L 13 13 13 13 Glucose 74 - 99 mg/dL 89 95 93 91 BUN 7 - 21 mg/dL 16 16 14 16 Creatinine 0.58 - 0.96 mg/dL 0.94 0.91 0.98 (H) 0.90 Sodium 136 - 144 mmol/L 144 141 142 140 Potassium 3.7 - 5.1 mmol/L 4.5 3.9 4.1 3.9 Chloride 98 - 107 mmol/L 107 (H) 103 102 105 CO2 22 - 30 mmol/L 26 26 24 26 Anion Gap 8 - 15 mmol/L 11 12 16 9 eGFR >=60 mL/min/1.73m 60 63 57 (L) 63 WBC 3.70 - 11.00 k/uL 6.31 6.80 5.69 RBC 3.90 - 5.20 m/uL 4.50 4.48 4.42 Hemoglobin 11.5 - 15.5 g/dL 12.8 12.8 12.5 Hematocrit 36.0 - 46.0 % 40.9 39.9 40.0 MCV 80.0 - 100.0 fL 90.9 89.1 90.5 MCH 26.0 - 34.0 pg 28.4 28.6 28.3 MCHC 30.5 - 36.0 g/dL 31.3 32.1 31.3 RDW-CV 11.5 - 15.0 % 13.6 13.8 13.3 Platelet Count 150 - 400 k/uL 372 368 349 MPV 9.0 - 12.7 fL 9.0 8.6 (L) 9.1 Abs Neut (ANC) 1.45 - 7.50 k/uL 3.00 3.80 2.64 IMMATURE GRANS (ABS) <0.10 k/uL <0.03 <0.03 <0.03 Absolute nRBC <0.01 k/uL <0.01 <0.01 <0.01 LD 135 - 214 U/L 171 161 162 Vitamin D 25 Hydroxy 31.0 - 80.0 ng/mL 50.8 56.2 59.4 54.9 Magnesium 1.7 - 2.3 mg/dL 2.1 2.4 (H) 2.1 TSH 0.270 - 4.200 mIU/L 2.290 Culture 50,000-<100,000 CFU/ml Proteus mirabilis ! Occult Blood, Stool Negative Negative PTH, Intact 15 - 65 pg/mL 23 C Telopeptide, Beta Cross Linked 152 - 858 pg/mL 377 Alk Phosphatase, Bone ug/L 8.9 Phosphorus 2.7 - 4.8 mg/dL 3.6 Legend: (H) High (L) Low ! 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 - Refilled gabapentin prescription and sent to [facility]. # Age-related osteoporosis without current pathological fracture (M81.0) - Recent DEXA scan from November 2023 showed improvement in the right femur (1.1%) but worsening in the lumbar spine. - Lumbar spine T-score: -2.4, Z-score: 0.5. Right femur total T-score: -1.6, Z-score: 0.7. Right femur neck T-score: -1.7, Z-score: 0.8. - Discussed potential initiation of Fosamax pending dental work completion. - Educated on the importance of weight-bearing exercises to improve bone density. - Follow-up with Dr. Guadalupe in April for further evaluation and potential treatment adjustments. # Vitamin D deficiency (E55.9) - Recent labs show normal Vitamin D levels. - Continue current Vitamin D supplementation. # Essential hypertension, benign (I10) - Blood pressure readings stable at 120s/60s. - Continue current antihypertensive regimen. # Gastroesophageal reflux disease, unspecified whether esophagitis present (K21.9) - Continue current management with Prilosec. - Prescription refill due in May. # Screening for depression (Z13.31) - No current depressive symptoms reported. # Encounter for immunization (Z23) - Discussed Tdap vaccination; available at the pharmacy. Laurence Martin MD documented in this encounter [facility] 03-19-2024 Note HNO ID: [id number] Author: LAURENCE MARTIN MD Service: ? Author Type: Physician Type: Progress Notes Filed: 03/19/2024 10:44 Note Text: This note was created using [employer]. Subjective Eileen Mckinley is a 83 year old female. Patient presents with: F/U 6 months SUBJECTIVE: Eileen Mckinley is a 83 year old year old lady here today for 6 month follow up appointment for review of medical conditions. Eileen Mckinley is an 83-year-old female, with a history of osteoporosis, presenting for a 6-month follow-up. Eileen reports recent bone density results from November 2023, showing a 1.1% improvement in the right femur but worsening in the lumbar spine compared to the November 30, 2021, bone density. The lumbar spine T-score was -2.4, Z-score 0.5; right femur total T-score -1.6, Z-score 0.7; and right femur neck T-score -1.7, Z-score 0.8. 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 Guadalupe, reviewed these results and advised a follow-up in April to recheck calcium and bone-related tests. If the results are not satisfactory, Dr. Guadalupe suggested starting Fosamax. Eileen has a history of taking Fosamax post-menopause but discontinued it due to dental work concerns. She plans to see her dentist next month for a tooth issue before her follow-up with Dr. Guadalupe in April. Eileen inquires about AlgaeCal, an tdjt-jjt-hchgpiy calcium supplement recommended by her daughter, but is informed that calcium alone will not build bones. She is advised on the importance of weight-bearing exercises to improve bone density. She also mentions a previous bone density test in 2018 at a [facility] site and is considering where to have future tests for consistency. Eileen is currently taking gabapentin 600 mg in the morning and evening, and 900 mg at bedtime, but often adds an extra 100 mg, totaling 700 mg in the morning and evening. She reports that her pain has worsened over time, attributing it to aging bones. She also mentions upcoming cataract surgery scheduled for [address] Boyer and discusses her options for post-surgery vision correction. She denies any swelling and reports stable blood pressure readings in the 120s/60s. 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 Do all this for 180 days. In addition to 600 mg dose. ibuprofen (ADVIL) 200 mg tablet Take 600 mg by mouth every 6 hours as needed for pain. nystatin (MYCOSTATIN) cream Apply 1 application to affected area two times a day. nitroglycerin 0.4 % (w/w) oint by RECTAL route two times a day as needed. gabapentin (NEURONTIN) 300 mg capsule Take 2 capsules by mouth every morning AND 2 capsules every evening AND 3 capsules daily at bedtime. Do all this for 90 days. In addition to 100 mg capsule. lisinopril (ZESTRIL) 10 mg tablet Take 1 tablet by mouth once daily. pentoxifylline ER (TRENTAL) 400 mg CR tablet Take 1 tablet by mouth two times a day. verapamil SR (CALAN SR) 180 mg CR tablet Take 1 tablet by mouth daily at bedtime. omeprazole (PRILOSEC) 20 mg capsule Take 1 capsule by mouth once daily. nitroglycerin ointment 0.2% (CPD) by RECTAL route twice daily as needed. (Patient not taking: Reported on 03/14/2023) gabapentin (NEURONTIN) 100 mg capsule Take 1 capsule by mouth three times daily for 90 days. In addition to 600 mg dose Cholecalciferol, Vitamin D3, 2,000 unit cap Take 1 capsule by mouth once daily. polyethylene glycol 3350 (MIRALAX) 17 gram/dose powder Take 17 g by mouth once daily. Mix with 8 ounces of liquid and allow sufficient time to dissolve. (1 capful equals 17 g), (Canister please) aspirin, enteric coated (ASPIRIN, ENTERIC COATED) 81 mg EC tablet Take 162 mg by mouth two times a day. PSYLLIUM SEED, WITH SUGAR, (METAMUCIL ORAL) Take by mouth. 3 times daily docusate sodium (COLACE) 100 mg capsule Take two capsules by mouth once daily. VITAMIN E 400 UNIT CAP Take one(1) tablet twice daily. CENTRUM SILVER TABLET Take (1) one tablet daily LUTEIN 6MG SOFTGEL Take one(1) tablet daily. No current facility-administered medications for this visit. Review of Systems Objective BP 122/68 Pulse 93 Temp 37.3 ?C (99.1 ?F) Resp 18 Wt 56.2 kg (123 lb 14.4 oz) SpO2 97% BMI (more content not included)... [facility] 03-07-2024 Telephone encounter Note No [facility] Work Phone: 03-07-2024 Miscellaneous Notes No Labs done by Dr. Pulido on 02/08/24, any other labs needed? documented in this encounter [facility] 03-07-2024 Telephone encounter Note Labs done by Dr. Pulido on 02/08/24, any other labs needed? [facility] 02-05-2024 Instructions Walter Pulido MD - 02/05/2024 2:01 PM EDT Please do labs on fasting List of calcium rich foods: Regarding the calcium, postmenopausal women who are getting adequate calcium from dietary intake alone (approximately 1200 mg daily) do not need to take calcium supplements. I have included a list below of foods and how much calcium they contain so that you can estimate how much you are getting from your food intake. Food Calcium, milligrams Milk (skim, 2 percent, or whole, 8 oz [240 mL]) 300 Yogurt (6 oz [168 g]) 250 [place] juice (with calcium, 8 oz [240 mL]) 300 Tofu with calcium (1/2 cup [113 g]) 435 Cheese (1 oz [28 g]) (hard cheese = higher calcium) 95 to 335 Cottage cheese (1/2 cup [113 g]) 130 Ice cream or frozen yogurt (1/2 cup [113 g]) 100 Soy milk (8 oz [240 mL]) 300 Beans (1/2 cup cooked [113 g]) 60 to 80 Dark, leafy green vegetables (1/2 cup cooked [113 g]) 50 to 135 Almonds (24 whole) 70 [place] (1 medium) 60 If you think you have inadequate dietary intake, you should take supplemental elemental calcium (generally 500 to 1000 mg/day), in divided doses at mealtime, such that their total calcium intake (diet plus supplements) approximates 1200 mg/day. documented in this encounter [facility] 02-05-2024 Note HNO ID: [id number] Author: WALTER PULIDO MD Service: ? Author Type: Physician Type: Progress Notes Filed: 02/05/2024 18:52 Note Text: Endocrinology and Metabolism [place] [facility] Visit Note NAME: Eileen Mckinley is a 83 year old old female PCP: Laurence Martin MD Requesting Provider: SELF My final recommendations will be communicated back to the requesting physician by way of shared medical record or letter via US mail. Chief Complaint: HPI: Eileen Mckinley is a 83 year old female here to discuss bone health. PMHx significant for Osteoporosis Calcium: orange juice with calcium daily. She takes calcium supplements with Vitamin D- she does not know the quantity of calcium in it Vitamin D: 2000 units daily Dietary and supplemental calcium intakes are inadequate Prior use of antiresporptives or other medications: estradiol after menopause for hot flashes, then she went on alendronate for about 5 years. She was seeing Dr. Butterfield at that time in 2005 She has a hx of osteosarcoma, and amputation of left leg Physical activity consists of daily chores. Patient has problem with balance. Fall prevention uses crutches Prior fragility fractures: no Height loss: 1 inch loss Kidney stones: one episode 20 years ago Weight change: no History of steroid use: no History of malabsorption: no History of certain medication use: no P:1 A:0 History of BCP use: yes for 2 years, stopped due to headaches History of estrogen use: yes, after menopause for 10 years History of : normal Menopause: 50-51 years Current or recent tobacco use: no Caffeine intake: no Alcohol use: no Use of lithium or thiazides: no History of hyperparathyroidism: no Cancer history: no History of radiation exposure: no Family history of osteoporosis, calcium, or bone disorders: no Family history of hip fractures: no Other endocrine diseases: not known Dental procedure planning - on right gum- she might get PAST MEDICAL HISTORY Diagnosis Date Age-related osteoporosis without current pathological fracture Anxiety 04/23/2013 Arthritis Constipation Diffuse cystic mastopathy Essential hypertension, benign 12/21/2010 GERD (gastroesophageal reflux disease) History of osteosarcoma Left lower extremity; 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 Nontoxic multinodular goiter Osteoporosis 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 Do all this for 180 days. In addition to 600 mg dose. ibuprofen (ADVIL) 200 mg tablet Take 600 mg by mouth every 6 hours as needed for pain. nystatin (MYCOSTATIN) cream Apply 1 application to affected area two times a day. nitroglycerin 0.4 % (w/w) oint by RECTAL route two times a day as needed. lisinopril (ZESTRIL) 10 mg tablet Take 1 tablet by mouth once daily. pentoxifylline ER (TRENTAL) 400 mg CR tablet Take 1 tablet by mouth two times a day. verapamil SR (CALAN SR) 180 mg CR tablet Take 1 tablet by mouth daily at bedtime. omeprazole (PRILOSEC) 20 mg capsule Take 1 capsule by mouth once daily. Cholecalciferol, Vitamin D3, 2,000 unit cap Take 1 capsule by mouth once daily. polyethylene glycol 3350 (MIRALAX) 17 gram/dose powder Take 17 g by mouth once daily. Mix with 8 ounces of liquid and allow sufficient time to dissolve. (1 capful equals 17 g), (Canister please) aspirin, enteric coated (ASPIRIN, ENTERIC COATED) 81 mg EC tablet Take 162 mg by mouth two times a day. PSYLLIUM SEED, WITH SUGAR, (METAMUCIL ORAL) Take by mouth. 3 times daily docusate sodium (COLACE) 100 mg capsule Take two capsules by mouth once daily. VITAMIN E 400 UNIT CAP Take one(1) tablet twice daily. CENTRUM SILVER TABLET Take (1) one tablet daily LUTEIN 6MG SOFTGEL Take one(1) tablet daily. gabapentin (NEURONTIN) 300 mg capsule Take 2 capsules by mouth every morning AND 2 capsules every evening AND 3 capsules daily at bedtime. Do all this for 90 days. In addition to 100 mg capsule. nitroglycerin ointment 0.2% (CPD) by RECTAL route twice daily as needed. (Patient not taking: Reported on 03/14/2023) gabapentin (NEURONTIN) 100 mg capsule Take 1 capsule by mouth three times daily for 90 days. In addition to 600 mg dose No current facility-administered medications on file prior to visit. ALLERGIES Allergen React (more content not included)... [facility] 02-05-2024 History of Presen t illness Narrative Images from the original note were not included. Endocrinology and Metabolism [place] Initial Clinic Visit Note NAME: Eileen Mckinley is a 83 year old old female PCP: Laurence Martin MD Requesting Provider: SELF My final recommendations will be communicated back to the requesting physician by way of shared medical record or letter via US mail. Chief Complaint: HPI: Eileen Mckinley is a 83 year old female here to discuss bone health. PMHx significant for Osteoporosis Calcium: orange juice with calcium daily. She takes calcium supplements with Vitamin D- she does not know the quantity of calcium in it Vitamin D: 2000 units daily Dietary and supplemental calcium intakes are inadequate Prior use of antiresporptives or other medications: estradiol after menopause for hot flashes, then she went on alendronate for about 5 years. She was seeing Dr. Butterfield at that time in 2005 She has a hx of osteosarcoma, and amputation of left leg Physical activity consists of daily chores. Patient has problem with balance. Fall prevention uses crutches Prior fragility fractures: no Height loss: 1 inch loss Kidney stones: one episode 20 years ago Weight change: no History of steroid use: no History of malabsorption: no History of certain medication use: no P:1 A:0 History of BCP use: yes for 2 years, stopped due to headaches History of estrogen use: yes, after menopause for 10 years History of : normal Menopause: 50-51 years Current or recent tobacco use: no Caffeine intake: no Alcohol use: no Use of lithium or thiazides: no History of hyperparathyroidism: no Cancer history: no History of radiation exposure: no Family history of osteoporosis, calcium, or bone disorders: no Family history of hip fractures: no Other endocrine diseases: not known Dental procedure planning - on right gum- she might get PAST MEDICAL HISTORY Diagnosis Date Age-related osteoporosis without current pathological fracture Anxiety 04/23/2013 Arthritis Constipation Diffuse cystic mastopathy Essential hypertension, benign 12/21/2010 GERD (gastroesophageal reflux disease) History of osteosarcoma Left lower extremity; 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 Nontoxic multinodular goiter Osteoporosis 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/24/2015 Left PMH - PAST MEDICAL HISTORY OF kidney stones PMH - PAST MEDICAL HISTORY OF thyroid nodules Raynaud's syndrome Vitamin D deficiency PAST SURGICAL HISTORY Procedure Laterality Date CURTG/CAUT ANAL FISSURE W/DILAT SPHNCTR SPX 1992 HAND SURGERY HX 1983 HEMORRHOIDECTOMY 1992 PAST SURGICAL HISTORY OF left leg disarticulation THYROID FINE NEEDLE ASPIRATION Left 06/01/2001 left Thyroid FNA Current Outpatient Medications on File Prior to Visit Medication Sig gabapentin (NEURONTIN) 100 mg capsule Take 1 capsule by mouth every morning AND 1-2 capsules every evening AND 1 capsule daily at bedtime. Do all this for 180 days. In addition to 600 mg dose. ibuprofen (ADVIL) 200 mg tablet Take 600 mg by mouth every 6 hours as needed for pain. nystatin (MYCOSTATIN) cream Apply 1 application to affected area two times a day. nitroglycerin 0.4 % (w/w) oint by RECTAL route two times a day as needed. lisinopril (ZESTRIL) 10 mg tablet Take 1 tablet by mouth once daily. pentoxifylline ER (TRENTAL) 400 mg CR tablet Take 1 tablet by mouth two times a day. verapamil SR (CALAN SR) 180 mg CR tablet Take 1 tablet by mouth daily at bedtime. omeprazole (PRILOSEC) 20 mg capsule Take 1 capsule by mouth once daily. Cholecalciferol, Vitamin D3, 2,000 unit cap Take 1 capsule by mouth once daily. polyethylene glycol 3350 (MIRALAX) 17 gram/dose powder Take 17 g by mouth once daily. Mix with 8 ounces of liquid and allow sufficient time to dissolve. (1 capful equals 17 g), (Canister please) aspirin, enteric coated (ASPIRIN, ENTERIC COATED) 81 mg EC tablet Take 162 mg by mouth two times a day. PSYLLIUM SEED, WITH SUGAR, (METAMUCIL ORAL) Take by mouth. 3 times daily docusate sodium (COLACE) 100 mg capsule Take two capsules by mouth once daily. VITAMIN E 400 UNIT CAP Take one(1) tablet twice daily. CENTRUM SILVER TABLET Take (1) one tablet daily LUTEIN 6MG SOFTGEL Take one(1) tablet daily. gabapentin (NEURONTIN) 300 mg capsule Take 2 capsules by mouth every morning AND 2 capsules every evening AND 3 capsules daily at bedtime. Do all this for 90 days. In addition to 100 mg capsule. nitroglycerin ointment 0.2% (CPD) by RECTAL route twice daily as needed. (Patient not taking: Reported on 03/14/2023) gabapentin (NEURONTIN) 100 mg capsule Take 1 capsule by mouth three times daily for 90 days. In addition to 600 mg dose No current facility-administered medications on file prior to visit. ALLERGIES Allergen Reactions Amitriptyline Dry mouth Cymbalta [Duloxetin* Dry mouth,diarrhea, blurred vision Niacin Rash FAMILY HISTORY Problem Relation Age of Onset Cancer Mother Leukemia Heart Father CHF Cancer Brother pancreatic Heart Sister Ischemic Heart Disease Brother REVIEW OF SYSTEMS Pertinent as per HPI Physical Exam: BP 96/60 Pulse 80 Temp 37.1 C (98.7 F) (Temporal Artery) Ht 160 cm (5' 3) Wt 55.9 kg (123 lb 3.2 oz) SpO2 96% BMI 21.82 kg/m Body mass index is 21.82 kg/m . General: WNWD, NAD Eyes: conjunctivae are pink, and moist. No exopthalmos, lag, or stare, uses crutches for walking ENT/Mouth: dentition was okay Neck: The thyroid is normal, nontender, no adenopthy Lymphatic: no cervical or supraclavicular adenopathy Cardiovascular: regular rate and rhythm Respiratory: unlabored breathing on room air Musculoskeletal: has right lower extremity only, no edema, left LE amputated Skin: normal, no rashes present Neurologic: DTR s normal with normal recovery phase, PERRL, EOMI, no tremor with outstretched hands Pyschiatric: mood and affect are normal DATA REVIEW: Labs: 10/12/2023 DXA: personally reviewed and independently interpreted Assessment/plan: In summary, Patricia Mckinley is a 83 year old female who presents for evaluation of Bone health. She has a hx of use of estrogen after menopause for about 20 years as reported, followed by Alendronate for 5 years. After that she was being monitored Risk factors include age and post menopausal status. She is not taking enough calcium in her diet despite taking Vit D. Hence she is at risk of secondary osteoporosis as well. I discussed about optimizing calcium intake. List pof calcium rich foods given, and advised getting [id number] mg of calcium through a combination of diet and supplements Last bone density was done in 09/2023- there is some worsening of BMD in lumbar spine, no significant change in right femoral neck We possibly cannot use FRAX score in her case as she has been on medication in the past, although the report mentions high fracture risk. Calculated FRAX score is 13% risk of major osteoporotic fracture and 3.7% risk of hip fracture Check bone labs, including bone turn over markers Although weight bearing exercise might be helpful, she has only on LE and hence acknowledged that this would be difficult We shall discuss restarting treatment on follow up. Follow up in 2 months with labs I spent a total of 78 minutes on the date of the service which included preparing to see the patient, [id number] patient care, completing clinical documentation, obtaining and/or reviewing separately obtained history, performing a medically appropriate examination, counseling and educating the patient/family/caregiver, ordering medications, tests, or procedures, independently interpreting results (not separately reported), and communicating results to the patient/family/caregiver. Walter Pulido MD Endocrinology Associate Staff [facility] Endocrinology and Metabolism [place] [phone] Medical Decision Making: Medical Decision Making Level: 1 - N/A documented in this encounter [facility] 02-05-2024 Telephone encounter Note Prescription Refill Information The patient has been identified by name and date of : Yes Caregiver verified no other encounters exist for this prescription request: Yes Caregiver confirmed with patient/requestor that no other refills are due, in the near future, with this provider at this time: Yes The last office visit in the department: 09/29/23 Does the patient have a future office visit with this provider/department: Yes 03/19/24 Requested Prescriptions Pending Prescriptions Disp Refills gabapentin (NEURONTIN) 100 mg capsule 320 capsule 1 Sig: Take 1 capsule by mouth every morning AND 1-2 capsules every evening AND 1 capsule daily at bedtime. Do all this for 180 days. In addition to 600 mg dose. Jennifer Ardon LPN February 05, 2024 9:29 AM [facility] 02-05-2024 Miscellaneous Notes Prescription Refill Information The patient has been identified by name and date of : Yes Caregiver verified no other encounters exist for this prescription request: Yes Caregiver confirmed with patient/requestor that no other refills are due, in the near future, with this provider at this time: Yes The last office visit in the department: 09/29/23 Does the patient have a future office visit with this provider/department: Yes 03/19/24 Requested Prescriptions Pending Prescriptions Disp Refills gabapentin (NEURONTIN) 100 mg capsule 320 capsule 1 Sig: Take 1 capsule by mouth every morning AND 1-2 capsules every evening AND 1 capsule daily at bedtime. Do all this for 180 days. In addition to 600 mg dose. Jennifer Ardon LPN February 05, 2024 9:29 AM documented in this encounter [facility] 01-12-2024 Telephone encounter Note Discussed intermittent diarrhea. Already cut out Miralax. Using Metamucil. Further evaluation and treatment as indicated. [facility] 01-12-2024 Miscellaneous Notes Discussed intermittent diarrhea. Already cut out Miralax. Using Metamucil. Further evaluation and treatment as indicated. documented in this encounter [facility] 01-09-2024 Telephone encounter Note Pt returned call and given provider's message below with verbalized understanding. Patient agreeable. [facility] 01-09-2024 Miscellaneous Notes Pt returned call and given provider's message below with verbalized understanding. Patient agreeable. Called and left a voicemail for the Patient to call back and ask for a nurse to receive the providers message. Aurelia Pierce RN Would put Metamucil on hold for now too and resume as needed Pt called and is notified of providers results and instructions. Pt voices understanding. Pt states she will stop the Miralax, but she only takes that a couple times a week. She states she takes Metamucil TID, she wanted to know if the provider wanted her to stop this as well. I told her I would ask the provider to get back to her, but she would probably want her to stop it for now. Pt states she is normally constipated. Aurelia Pierce RN May take Imodium if needed with current meds, but if still taking Miralax, may put that on hold. Follow up if diarrhea not resolving in the next couple weeks or so since problem has been going for several weeks already. Pt calls states has been dealing with diarrhea on and off for a few weeks now . Today bad again , feels sick in no other way but it has became a problem with messing herself today due to how fast it comes on. She is asking if could take imodium with her other meds. And at which point of this should she come in if imodium does not help. documented in this encounter [facility] 01-09-2024 Telephone encounter Note Called and left a voicemail for the Patient to call back and ask for a nurse to receive the providers message. Aurelia Pierce RN [facility] 01-08-2024 Telephone encounter Note Would put Metamucil on hold for now too and resume as needed [facility] 01-08-2024 Telephone encounter Note The following approved medication requests have been transmitted electronically. Requested Prescriptions Pending Prescriptions Disp Refills nystatin (MYCOSTATIN) cream 30 g 1 Sig: Apply 1 application to affected area two times a day. Laurence Martin MD [facility] 01-08-2024 Miscellaneous Notes The following approved medication requests have been transmitted electronically. Requested Prescriptions Pending Prescriptions Disp Refills nystatin (MYCOSTATIN) cream 30 g 1 Sig: Apply 1 application to affected area two times a day. Laurence Martin MD Prescription Refill Information The patient has been identified by name and date of : Yes Caregiver verified no other encounters exist for this prescription request: Yes Caregiver confirmed with patient/requestor that no other refills are due, in the near future, with this provider at this time: Yes The last office visit in the department: 09/29/23 Does the patient have a future office visit with this provider/department: Yes Requested Prescriptions Pending Prescriptions Disp Refills nystatin (MYCOSTATIN) cream 30 g 1 Sig: Apply 1 application to affected area two times a day. Char Gamboa LPN January 08, 2024 2:45 PM documented in this encounter [facility] 01-08-2024 Telephone encounter Note Prescription Refill Information The patient has been identified by name and date of : Yes Caregiver verified no other encounters exist for this prescription request: Yes Caregiver confirmed with patient/requestor that no other refills are due, in the near future, with this provider at this time: Yes The last office visit in the department: 09/29/23 Does the patient have a future office visit with this provider/department: Yes Requested Prescriptions Pending Prescriptions Disp Refills nystatin (MYCOSTATIN) cream 30 g 1 Sig: Apply 1 application to affected area two times a day. Char Gamboa LPN January 08, 2024 2:45 PM [facility] 01-08-2024 Telephone encounter Note Pt called and is notified of providers results and instructions. Pt voices understanding. Pt states she will stop the Miralax, but she only takes that a couple times a week. She states she takes Metamucil TID, she wanted to know if the provider wanted her to stop this as well. I told her I would ask the provider to get back to her, but she would probably want her to stop it for now. Pt states she is normally constipated. Aurelia Pierce, BRADLEY [facility] 01-06-2024 Telephone encounter Note May take Imodium if needed with current meds, but if still taking Miralax, may put that on hold. Follow up if diarrhea not resolving in the next couple weeks or so since problem has been going for several weeks already. [facility] 01-04-2024 Telephone encounter Note Pt calls states has been dealing with diarrhea on and off for a few weeks now . Today bad again , feels sick in no other way but it has became a problem with messing herself today due to how fast it comes on. She is asking if could take imodium with her other meds. And at which point of this should she come in if imodium does not help. [facility] 12-19-2023 Telephone encounter Note Prescription Refill Information Please review - noted this was d/c at last OV 09/28. The patient has been identified by name and date of : Yes Caregiver verified no other encounters exist for this prescription request: Yes Caregiver confirmed with patient/requestor that no other refills are due, in the near future, with this provider at this time: Yes The last office visit in the department: 09/29/2023 Does the patient have a future office visit with this provider/department: Yes Requested Prescriptions Pending Prescriptions Disp Refills nitroglycerin 0.4 % (w/w) oint 30 g 2 Sig: by RECTAL route two times a day as needed. Mike Burt MA December 19, 2023 8:50 AM [facility] 12-19-2023 Miscellaneous Notes Prescription Refill Information Please review - noted this was d/c at last OV 09/28. The patient has been identified by name and date of : Yes Caregiver verified no other encounters exist for this prescription request: Yes Caregiver confirmed with patient/requestor that no other refills are due, in the near future, with this provider at this time: Yes The last office visit in the department: 09/29/2023 Does the patient have a future office visit with this provider/department: Yes Requested Prescriptions Pending Prescriptions Disp Refills nitroglycerin 0.4 % (w/w) oint 30 g 2 Sig: by RECTAL route two times a day as needed. Mike Burt MA December 19, 2023 8:50 AM documented in this encounter [facility] 12-15-2023 Telephone encounter Note Pt advised of results and instructions. Pt verbalizes understanding. Pt wants to think about options and then she will either call office back or will send My Chart message. Copy of result message sent to pt for her reference. Trish Pereira LPN [facility] 12-15-2023 Miscellaneous Notes Pt advised of results and instructions. Pt verbalizes understanding. Pt wants to think about options and then she will either call office back or will send My Chart message. Copy of result message sent to pt for her reference. Trish Pereira LPN No answer. Left message for patient to call office and ask to speak to a nurse regarding bone density results Shows worsening bone density with T-score lumbar spine -2.4 (from -2.3) which is close to osteoporosis range (-2.5) Hip in osteopenia range -1.6 up from -1.7. She may continue present management with adequate calcium, Vitamin D and weight bearing exercise, or consider Fosamax again to prevent progression. Also, could follow up with generator operator straight bevel gear for their recommendation. See if she has a preference. In any case, would repeat BMD in 2 years View External Imaging - Bone Density [ID [id number]] Bone density completed at [facility] please review. documented in this encounter [facility] 12-15-2023 Telephone encounter Note No answer. Left message for patient to call office and ask to speak to a nurse regarding bone density results [facility] 12-14-2023 Telephone encounter Note Shows worsening bone density with T-score lumbar spine -2.4 (from -2.3) which is close to osteoporosis range (-2.5) Hip in osteopenia range -1.6 up from -1.7. She may continue present management with adequate calcium, Vitamin D and weight bearing exercise, or consider Fosamax again to prevent progression. Also, could follow up with generator operator straight bevel [employer] for their recommendation. See if she has a preference. In any case, would repeat BMD in 2 years [facility] 12-13-2023 Telephone encounter Note View External Imaging - Bone Density [ID [id number]] [facility] 12-13-2023 Telephone encounter Note Bone density completed at [facility] please review. [facility] 11-20-2023 Telephone encounter Note Orders faxed [facility] 11-20-2023 Miscellaneous Notes Orders faxed Please send orders for mammogram and bone density to [facility] if this has not already been done. documented in this encounter [facility] 11-20-2023 Telephone encounter Note Please send orders for mammogram and bone density to [facility] if this has not already been done. [facility] Work Phone: 11-15-2023 Telephone encounter Note Order Faxed to [facility] Scheduling as requested. Bobbi Tinoco RN [facility] 11-15-2023 Miscellaneous Notes Order Faxed to [facility] Scheduling as requested. Bobbi Tinoco RN [place] Yu from [facility] Scheduling calls and states that patient is scheduled for bone density and mammogram on 12/12/2023. Yu asking if orders can be placed and faxed to [facility] scheduling? Please review and advise, Bobbi Tinoco RN documented in this encounter [facility] 11-14-2023 Telephone encounter Note OK [facility] 11-14-2023 Telephone encounter Note Yu from [facility] Scheduling calls and states that patient is scheduled for bone density and mammogram on 12/12/2023. Yu asking if orders can be placed and faxed to [facility] scheduling? Please review and advise, Bobbi Tinoco RN [facility] 09-29-2023 History of Presen t illness Narrative This note was created using [employer]. Subjective Eileen Mckinley is a 83 year old female. Patient presents with: F/U 6 months SUBJECTIVE: Eileen Mckinley is a 83 year old year old lady here today for 6 month follow up appointment for review of medical conditions. Gets urinary urgency and frequency Does have lower abdominal pain. Seems like when had prior kidney stone that got to bladder. Passed on its own and was pretty good size--20 years ago. Sometimes needs two 100mg gabapentin in the evening to control phantom limb pain. 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 pentoxifylline ER (TRENTAL) 400 mg CR tablet Take 1 tablet by mouth two times a day. verapamil SR (CALAN SR) 180 mg CR tablet Take 1 tablet by mouth daily at bedtime. omeprazole (PRILOSEC) 20 mg capsule Take 1 capsule by mouth once daily. nystatin (MYCOSTATIN) cream Apply 1 application to affected area two times a day. gabapentin (NEURONTIN) 100 mg capsule Take 1 capsule by mouth three times daily for 90 days. In addition to 600 mg dose gabapentin (NEURONTIN) 300 mg capsule Take 2 capsules by mouth every morning AND 2 capsules every evening AND 3 capsules daily at bedtime. Do all this for 90 days. In addition to 100 mg capsule. Cholecalciferol, Vitamin D3, 2,000 unit cap Take 1 capsule by mouth once daily. polyethylene glycol 3350 (MIRALAX) 17 gram/dose powder Take 17 g by mouth once daily. Mix with 8 ounces of liquid and allow sufficient time to dissolve. (1 capful equals 17 g), (Canister please) aspirin, enteric coated (ASPIRIN, ENTERIC COATED) 81 mg EC tablet Take 162 mg by mouth two times a day. PSYLLIUM SEED, WITH SUGAR, (METAMUCIL ORAL) Take by mouth. 3 times daily docusate sodium (COLACE) 100 mg capsule Take two capsules by mouth once daily. VITAMIN E 400 UNIT CAP Take one(1) tablet twice daily. CENTRUM SILVER TABLET Take (1) one tablet daily LUTEIN 6MG SOFTGEL Take one(1) tablet daily. gabapentin (NEURONTIN) 100 mg capsule Take 1 capsule by mouth three times daily. In addition to 600 mg dose gabapentin (NEURONTIN) 300 mg capsule Take 2 capsules by mouth every morning AND 2 capsules every evening AND 3 capsules daily at bedtime. Do all this for 360 days. In addition to 100 mg capsule. (Patient not taking: Reported on 06/12/2023) nitroglycerin 0.4 % (w/w) oint by RECTAL route twice daily as needed. (Patient not taking: Reported on 09/29/2023) nitroglycerin ointment 0.2% (CPD) by RECTAL route twice daily as needed. (Patient not taking: Reported on 03/14/2023) No current facility-administered medications for this visit. Review of Systems Objective BP 130/62 Pulse 98 Wt 58.5 kg (129 lb) SpO2 97% BMI 22.85 kg/m Last 5 Encounter Wt Readings: Date: Wt: 09/29/2023 58.5 kg (129 lb) 06/12/2023 62.1 kg (137 lb) 03/14/2023 57.6 kg (127 lb) 08/09/2022 60.6 kg (133 lb 8 oz) 02/04/2022 59.9 kg (132 lb) No waist measurement recorded Estimated body mass index is 22.85 kg/m as calculated from the following: Height as of 06/12/23: 160 cm (5' 3). Weight as of this encounter: 58.5 kg (129 lb). Last 5 Encounter BP Readings: Date: BP: 09/29/2023 130/62 06/12/2023 138/70 03/14/2023 138/68 08/09/2022 122/60 02/04/2022 130/78 Physical Exam Constitutional: Appearance: Normal appearance. HENT: Head: Normocephalic. Eyes: Conjunctiva/sclera: Conjunctivae normal. Cardiovascular: Rate and Rhythm: Normal rate and regular rhythm. Heart sounds: Murmur heard. Systolic (harsh murmur) murmur is present. Pulmonary: Effort: Pulmonary effort is normal. Breath sounds: Normal breath sounds. Musculoskeletal: Right lower leg: No edema. 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 Neurological: General: No focal deficit present. Mental Status: She is alert and oriented to person, place, and time. Psychiatric: Mood and Affect: Mood normal. Behavior: Behavior normal. Thought Content: Thought content normal. Judgment: Judgment normal. Latest Ref Rng 08/02/2022 03/06/2023 09/22/2023 Protein, Total 6.3 - 8.0 g/dL 6.3 6.8 6.2 (L) Albumin 3.9 - 4.9 g/dL 4.2 4.3 4.1 Calcium 8.5 - 10.2 mg/dL 9.7 9.4 9.5 Bilirubin, Total 0.2 - 1.3 mg/dL 0.3 0.3 0.3 Alkaline Phosphatase 34 - 123 U/L 74 78 79 AST 13 - 35 U/L 15 14 17 ALT 7 - 38 U/L 13 13 13 Glucose 74 - 99 mg/dL 89 95 93 BUN 7 - 21 mg/dL 16 16 14 Creatinine 0.58 - 0.96 mg/dL 0.94 0.91 0.98 (H) Sodium 136 - 144 mmol/L 144 141 142 Potassium 3.7 - 5.1 mmol/L 4.5 3.9 4.1 Chloride 97 - 105 mmol/L 107 (H) 103 102 CO2 22 - 30 mmol/L 26 26 24 Anion Gap 9 - 18 mmol/L 11 12 16 eGFR >=60 mL/min/1.73m 60 63 57 (L) WBC 3.70 - 11.00 k/uL 6.31 6.80 5.69 RBC 3.90 - 5.20 m/uL 4.50 4.48 4.42 Hemoglobin 11.5 - 15.5 g/dL 12.8 12.8 12.5 Hematocrit 36.0 - 46.0 % 40.9 39.9 40.0 MCV 80.0 - 100.0 fL 90.9 89.1 90.5 MCH 26.0 - 34.0 pg 28.4 28.6 28.3 MCHC 30.5 - 36.0 g/dL 31.3 32.1 31.3 RDW-CV 11.5 - 15.0 % 13.6 13.8 13.3 Platelet Count 150 - 400 k/uL 372 368 349 MPV 9.0 - 12.7 fL 9.0 8.6 (L) 9.1 Abs Neut (ANC) 1.45 - 7.50 k/uL 3.00 3.80 2.64 IMMATURE GRANS (ABS) <0.10 k/uL <0.03 <0.03 <0.03 Absolute nRBC <0.01 k/uL <0.01 <0.01 <0.01 LD 135 - 214 U/L 171 161 162 Vitamin D 25 Hydroxy 31.0 - 80.0 ng/mL 50.8 56.2 59.4 Magnesium 1.7 - 2.3 mg/dL 2.1 2.4 (H) TSH 0.270 - 4.200 mIU/L 2.290 Legend: (H) High (L) Low BMD and mammogram at [facility]--scheduled. Results of urine studies reviewed. Assessment and Plan Encounter Diagnosis ICD-10-CM 1. Acute cystitis without hematuria N30.00 Poteus mirabilis. Treating with Augmentin 2. 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 3. Vitamin D deficiency E55.9 Well repalced. Continue present dose 4. Age-related osteoporosis without current pathological fracture M81.0 BMD at [facility] soon Above issues addressed with patient. Patient involved in shared decision making for management of medical issues. History and medications reviewed. Epic updated as needed Refills and/or prescriptions taken care of and meds adjusted as indicated after reviewed history, exam and labs. Health Maintenance reviewed. Updated record and/or ordered tests as recorded. Encouraged on efforts at healthy diet and regular exercise and adequate sleep. Laurence Martin MD documented in this encounter [facility] 09-21-2023 Telephone encounter Note Noted [facility] 09-21-2023 Miscellaneous Notes Noted Spoke with patient. Given message from provider's office. Patient verbalizes understanding. Offered appointment tomorrow with MANN Juarez. She says she is coming to the lab tomorrow and would prefer to give urine specimen. Ligia Easton RN She would be best served by coming into express care or in office for checking for UTI, as there is quicker turnaround / treatment this way, but I can place a lab order if that is what she prefers. Patient states she has upcoming appt with Dr. Martin on 09/28 and will be completing labs as ordered, prior to appt. Pt asking if a provider would add Urine Testing orders as well. Pt reports she has had mild burning with urination and urgency for about 4 days now and would like to test for a UTI. Please call patient with response. Thank you. [phone] documented in this encounter [facility] 09-21-2023 Telephone encounter Note Spoke with patient. Given message from provider's office. Patient verbalizes understanding. Offered appointment tomorrow with MANN Juarez. She says she is coming to the lab tomorrow and would prefer to give urine specimen. Ligia Easton RN [facility] 09-21-2023 Telephone encounter Note She would be best served by coming into express care or in office for checking for UTI, as there is quicker turnaround / treatment this way, but I can place a lab order if that is what she prefers. [facility] 09-21-2023 Telephone encounter Note Patient states she has upcoming appt with Dr. Martin on 09/28 and will be completing labs as ordered, prior to appt. Pt asking if a provider would add Urine Testing orders as well. Pt reports she has had mild burning with urination and urgency for about 4 days now and would like to test for a UTI. Please call patient with response. Thank you. [phone] [facility] 07-28-2023 Instructions Mandi Whipple RN - 07/28/2023 3:30 PM EDT The following instructions are important for you related to your office visit today with the [facility] General Surgeons. Instructions After THYROID FINE NEEDLE ASPIRATION Please do not take aspirin or other blood thinners for the next few days. You may restart your aspirin on Monday, July 28, 2022. You may remove the band aid tonight or tomorrow. If you have bleeding from the needle site, hold pressure with a clean gauze. If the bleeding continues, contact our office immediately. I recommend taking Advil or Tylenol for the discomfort. An ice pack may improve your discomfort to the area. Contact our office immediately if you have any questions or concerns @ [phone]. Please make an appointment to follow up in one week with your physician and thank you for choosing the [facility]. Your pathology will be back in approximately 7-10 days. If you do not hear from Dr. Finn by 10 days, please call our office. If you note any additional difficulties, questions, or concerns, you should contact our office immediately @ [phone] and ask to be transferred to the General Surgery department. documented in this encounter [facility] 07-28-2023 History of Presen t illness Narrative UNIVERSAL PROTOCOL / SAFETY CHECKLIST Procedure to be Performed: US guided FNA of left thyroid nodule Sign In: A Moment of CARE was completed. Personnel directly involved with the procedure wore the appropriate PPE (Personal Protective Equipment). No special equipment needed. Patient/Surrogate Stated/Verified: PATIENT VERIFIED(optional for EMERGENT procedures): Patient name, Date of , Relevant allergies, and The intended procedure Time Out Communication: Intended patient and procedure match the source documents. Consent documented and matches the intended procedure. Relevant labs, photos, and/or imaging studies have been reviewed. Correct side/site marked and visible. Medications required for procedure verified. No fire risk assessment and interventions applicable. No implant(s) inserted. Sign Out: SIGN OUT (optional for EMERGENT procedures): All specimen containers correctly labeled. No instruments, equipment or retained foreign bodies applicable. Post-procedure follow-up management communicated and Plan of Care Visit completed when applicable. Mandi Whipple RN Patricia presents for US guided FNA of left thyroid nodule. PROCEDURE NOTE: After informed consent was given and patient gives permission for the procedure, the patient was in the supine position with neck in slight extension. Appropriate time out protocol was followed. The ultrasound machine was used for real time imaging. The anterior neck skin was cleansed with a sterile surgical skin preparation. The skin and subcutaneous tissues were infiltrated with 1% xylocaine with epinephrine. The ultrasound transducer probe was brought up to localize the thyroid nodules. The left thyroid nodule was identified with the US transducer. It was located in the lower pole. It was about 2.5 cm in maximum dimension A 22 G needle was inserted into the nodule under US guidance. Several passes were made to ensure obtaining enough material. The needle was withdrawn. The specimen was placed in a formalin solution and forwarded to pathology. The above was repeated with a new 22 G needle attached to a 10 cc syringe. This was done to ensure adequate sampling. This process was again repeated until adequate sampling was deemed to be achieved. The specimens were then forwarded to pathology. Hemostasis was achieved by pressure. A small bandaid was applied and patient told that she could remove it tomorrow. No evidence of bleeding noted. Patient tolerated procedure well. Complications - none EBL - minimal PLAN: Wound care instructions given by clinic staff. Patient to follow up with office visit or telehealth visit next week. Patient acknowledges the above. documented in this encounter [facility] 07-06-2023 Miscellaneous Notes Patient notified of provider's message below. Corinne Samuel RN PCP is out of the office today. Please let her know that the echocardiogram showed normal pumping action of the heart. Some stiffness of the heart muscle (diastolic dysfunction) There is mild aortic valve stenosis caused by calcification. CONCLUSIONS: - Technically difficult exam due to body habitus. - Exam indication: Cardiac murmur - The left ventricle is normal in size. Left ventricular systolic function is normal. EF = 73 5% (2D biplane) Grade I left ventricular diastolic dysfunction. - The right ventricle is normal in size. Right ventricular systolic function is normal. - There is mild aortic stenosis present. - The patient has not had a prior CC echocardiographic exam for comparison. Patient asking if PCP would advise on her Echo result from 06/12/23. *see spouse's telephone note/request (07/04/23) as well Thank you. documented in this encounter [facility] 06-12-2023 Nurse Note REVIEW OF SYSTEMS: General: The patient denies fatigue, denies weight loss, denies weight gain, denies feeling hot, and denies feelings of cold. Eyes: The patient denies glaucoma, denies eye injury/surgery, does not wear glasses or contacts. Ear/Nose/Throat: The patient denies allergies, denies hayfever, denies ear infections, and denies bloody noses. Cardiovascular: The patient denies chest pain, denies heart disease, NOTES high blood pressure,denies cardiac stent, denies prior heart attack, denies irregular heart beat, denies high cholesterol, denies poor circulation, denies heart failure, other cardiac issues, denies claudication, denies cold feet, denies peripheral arterial stent. Respiratory: The patient denies tuberculosis, denies pneumonia, denies frequent cough, denies pulmonary embolism, denies shortness of breath, and denies coughing up blood. Gastrointestinal: The patient denies difficulty swallowing, NOTES acid reflux, denies ulcers, denies vomiting, denies jaundice/hepatitis, denies gallbladder problems, denies black or tarry stools, NOTES hemorrhoids, denies bleeding from rectum, denies diverticulitis, denies constipation, NOTES diarrhea, denies loss of stool control, and denies hernias. Kidney/Bladder: The patient NOTES kidney stones, denies urine infections, and denies bloody urine. Skin: The patient denies a history of skin cancer, denies bleeding/changing moles, and denies a history of skin rash. Neurologic: The patient denies a history of epilepsy/convulsions, denies headaches, denies head/spinal injuries, and denies stroke/TIA. Psychiatric: The patient denies psychiatric medications, denies depression, and denies voices, denies substance abuse. Endocrine: The patient NOTES thyroid disorders, denies diabetes, and denies hormonal problems. Hematologic: The patient denies a history of bruising, denies bleeding, and denies anemia, denies blood clots. Infections: The patient denies a history of measles and mumps, denies rheumatic fever, and denies sexually transmitted diseases. Musculoskeletal: The patient NOTES back pain/injury, denies back problems, denies sciatica, denies knee/foot trouble, denies arthritis, or denies gout. When was patient's last Mammogram screening? 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 She denies swallowing difficulties. She denies globus symptoms. She notes no thyroid cancer in the family. She denies exposure to unusual radiation. She is not taking any thyroid hormones presently. 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 pentoxifylline ER (TRENTAL) 400 mg CR tablet Take 1 tablet by mouth two times a day. verapamil SR (CALAN SR) 180 mg CR tablet Take 1 tablet by mouth daily at bedtime. omeprazole (PRILOSEC) 20 mg capsule Take 1 capsule by mouth once daily. nystatin (MYCOSTATIN) cream Apply 1 application to affected area two times a day. gabapentin (NEURONTIN) 100 mg capsule Take 1 capsule by mouth three times daily. In addition to 600 mg dose gabapentin (NEURONTIN) 100 mg capsule Take 1 capsule by mouth three times daily for 90 days. In addition to 600 mg dose Cholecalciferol, Vitamin D3, 2,000 unit cap Take 1 capsule by mouth once daily. polyethylene glycol 3350 (MIRALAX) 17 gram/dose powder Take 17 g by mouth once daily. Mix with 8 ounces of liquid and allow sufficient time to dissolve. (1 capful equals 17 g), (Canister please) aspirin, enteric coated (ASPIRIN, ENTERIC COATED) 81 mg EC tablet Take 162 mg by mouth two times a day. PSYLLIUM SEED, WITH SUGAR, (METAMUCIL ORAL) Take by mouth. 3 times daily docusate sodium (COLACE) 100 mg capsule Take two capsules by mouth once daily. VITAMIN E 400 UNIT CAP Take one(1) tablet twice daily. CENTRUM SILVER TABLET Take (1) one tablet daily LUTEIN 6MG SOFTGEL Take one(1) tablet daily. gabapentin (NEURONTIN) 300 mg capsule Take 2 capsules by mouth every morning AND 2 capsules every evening AND 3 capsules daily at bedtime. Do all this for 360 days. In addition to 100 mg capsule. (Patient not taking: Reported on 06/12/2023) nitroglycerin 0.4 % (w/w) oint by RECTAL route twice daily as needed. (Patient not taking: Reported on 03/14/2023) nitroglycerin ointment 0.2% (CPD) by RECTAL route twice daily as needed. (Patient not taking: Reported on 03/14/2023) gabapentin (NEURONTIN) 300 mg capsule Take 2 capsules by mouth every morning AND 2 capsules every evening AND 3 capsules daily at bedtime. Do all this for 90 days. In addition to 100 mg capsule. No current facility-administered medications for this visit. ALLERGIES: Amitriptyline, Cymbalta [Duloxetine], and Niacin PERSONAL HISTORY: Social History Tobacco Use Smoking status: Never Smokeless tobacco: Never Vaping Use Vaping Use: Never used Substance Use Topics Alcohol use: No Drug use: No FAMILY HISTORY Problem Relation Age of Onset Cancer Mother Leukemia Heart Father CHF Cancer Brother pancreatic Heart Sister Ischemic Heart Disease Brother The review of systems data was entered by the nurse and reviewed by ca Nursing Notes: Milena Mcdowell RN 06/12/2023 2:02 PM Signed REVIEW OF SYSTEMS: General: The patient denies fatigue, denies weight loss, denies weight gain, denies feeling hot, and denies feelings of cold. Eyes: The patient denies glaucoma, denies eye injury/surgery, does not wear glasses or contacts. Ear/Nose/Throat: The patient denies allergies, denies hayfever, denies ear infections, and denies bloody noses. Cardiovascular: The patient denies chest pain, denies heart disease, NOTES high blood pressure,denies cardiac stent, denies prior heart attack, denies irregular heart beat, denies high cholesterol, denies poor circulation, denies heart failure, other cardiac issues, denies claudication, denies cold feet, denies peripheral arterial stent. Respiratory: The patient denies tuberculosis, denies pneumonia, denies frequent cough, denies pulmonary embolism, denies shortness of breath, and denies coughing up blood. Gastrointestinal: The patient denies difficulty swallowing, NOTES acid reflux, denies ulcers, denies vomiting, denies jaundice/hepatitis, denies gallbladder problems, denies black or tarry stools, NOTES hemorrhoids, denies bleeding from rectum, denies diverticulitis, denies constipation, NOTES diarrhea, denies loss of stool control, and denies hernias. Kidney/Bladder: The patient NOTES kidney stones, denies urine infections, and denies bloody urine. Skin: The patient denies a history of skin cancer, denies bleeding/changing moles, and denies a history of skin rash. Neurologic: The patient denies a history of epilepsy/convulsions, denies headaches, denies head/spinal injuries, and denies stroke/TIA. Psychiatric: The patient denies psychiatric medications, denies depression, and denies voices, denies substance abuse. Endocrine: The patient NOTES thyroid disorders, denies diabetes, and denies hormonal problems. Hematologic: The patient denies a history of bruising, denies bleeding, and denies anemia, denies blood clots. Infections: The patient denies a history of measles and mumps, denies rheumatic fever, and denies sexually transmitted diseases. Musculoskeletal: The patient NOTES back pain/injury, denies back problems, denies sciatica, denies knee/foot trouble, denies arthritis, or denies gout. When was patient's last Mammogram screening? 2022 Last Colonoscopy: none Milena Mcdowell RN PHYSICAL EXAMINATION: General: The patient is 83 year old female, well nourished, well hydrated in no acute distress. The patient is oriented to time, place, and person. VITALS: Blood pressure 138/70, pulse 104, temperature 36.7 C (98.1 F), height 160 cm (5' 3), weight 62.1 kg (137 lb), SpO2 98%. Body mass index is 24.27 kg/m . Head: Normal cephalic, atraumatic Eyes: pupils are equally round, sclera are clear/anicteric Neck is supple with no tracheal deviation Cardiac: normal heart sounds, regular Respiratory: Normal respiratory excursion and pattern. Abdominal exam: benign Extremities: no clubbing, cyanosis or edema. Neuro: non focal Psych: normal mood Assessment IMPRESSION: abnormal ultrasound of thyroid PLAN: I have discussed the above with the patient. I have offered US guided FNA of left thyroid nodule. I have explained the procedure to the patient. To be done in the office using local anesthesia I have counseled the patient as to the risks of the procedure, including but not limited to: infection, bleeding, injury to any blood vessels/nerves, scar tissue, wound infections, complications of anesthesia, etc. - the patient understands. I have told patient to stop taking aspirin three whole days prior to procedure. The patient wishes to proceed. I have answered all questions to the patient s satisfaction and the patient has no further questions. I have confirmed and edited as necessary, the PFSH and ROS obtained by others. Consultation requested by Shai Saxena for an opinion regarding abnormal ultrasound of thyroid. My final recommendations will be communicated back to the requesting physician by way of shared Medical record or letter to requesting physician via US mail. .Diagnoses: (R93.89) Abnormal ultrasound of thyroid gland (primary encounter diagnosis) (Z79.82) On aspirin at home Medical Decision Making: Problems: Moderate: New problem with uncertain prognosis Data: Unique test result(s) reviewed: 1 Risk: Low: Low risk from testing/treatment Medical Decision Making Level: 3 - Low Taylor Finn MD documented in this encounter [facility] 2023 Miscellaneous Notes Okayed Patient has been identified by name and date of : Yes Patient phones for refill(s): Requested Prescriptions Pending Prescriptions Disp Refills nystatin (MYCOSTATIN) cream 30 g 1 Sig: Apply 1 application to affected area two times a day. Date of last office visit in primary care: 03/14/2023 Date of next office visit in primary care: 09/29/2023 Please advise. Thank you. Radha Buchanan LPN. documented in this encounter [facility] 2023 Miscellaneous Notes Okayed Patient has been identified by name and date of : Yes Patient phones for refill(s): Requested Prescriptions Pending Prescriptions Disp Refills lisinopril (ZESTRIL) 10 mg tablet 90 tablet 3 Sig: Take 1 tablet by mouth once daily. pentoxifylline ER (TRENTAL) 400 mg CR tablet 180 tablet 3 Sig: Take 1 tablet by mouth two times a day. verapamil SR (CALAN SR) 180 mg CR tablet 90 tablet 3 Sig: Take 1 tablet by mouth daily at bedtime. omeprazole (PRILOSEC) 20 mg capsule 90 capsule 3 Sig: Take 1 capsule by mouth once daily. Date of last office visit in primary care: Visit date not found Date of next office visit in primary care: Visit date not found Please advise. Thank you. Radha Buchanan LPN. documented in this encounter [facility] 02-13-2023 Miscellaneous Notes Notified patient. Filed order Patient needs lab orders placed for her upcoming appt on 03/14. Please advise. documented in this encounter [facility] 02-10-2023 Miscellaneous Notes Filed order Per prior guidelines, Prevnar 20 not needed after having had Pneumovax 23 and Prevnar 13, but she is a candidate for Prevnar 20 according to UpToDate and the updated CIP recommendations. Though she did have Prevnar 13 and Pneumovax 23, it has been over 5 years since her last vaccination, so she may get the Prevnar 20. Looks like our HM record does not reflect this yet. Patient scheduled for nurse visit 02/14/23 to receive flu vaccine and Pneumococcal vaccine. HM and immunization history do not indicate that she is due for any further Pneumococcal vaccines. Please review and advise. Vero Kruger LPN documented in this encounter [facility] 08-09-2022 History of Presen t illness Narrative This note was created using [employer]. Subjective Eileen Mckinley is a 82 year old female. Patient presents with: F/U 6 months: Labs prior SUBJECTIVE: Eileen Mckinley is a 82 year old year old lady here today for 6 month follow up appointment for review of medical conditions. Noted that NTG rectal ointment not covered [facility] so needs to try to get locally. Overall doing well. Refills for meds discussed. Will drop off copy of HCDPOA. is surrogate decision maker. Daughter is secondary. Depression Screening 10/04/2017 09/28/2020 02/04/2022 08/09/2022 PHQ-2 Score 0 0 0 0 Depression screening tool completed and reviewed. Based on score and interview, patient is not at risk for depression. Screening tool discussed with patient, and I recommended no further intervention at this time. 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 In addition to 600 mg dose gabapentin (NEURONTIN) 300 mg capsule Take 2 capsules by mouth every morning AND 2 capsules every evening AND 3 capsules daily at bedtime. Do all this for 90 days. In addition to 100 mg capsule. lisinopril (ZESTRIL, PRINIVIL) 10 mg tablet Take 1 tablet by mouth once daily. pentoxifylline ER (TRENTAL) 400 mg CR tablet Take 1 tablet by mouth twice daily. verapamil SR (CALAN SR, ISOPTIN SR) 180 mg CR tablet Take 1 tablet by mouth daily at bedtime. omeprazole (PRILOSEC) 20 mg capsule Take 1 capsule by mouth once daily. nystatin (MYCOSTATIN) cream Apply 1 application to affected area twice daily. nitroglycerin 0.4 % (w/w) oint by RECTAL route twice daily as needed. Cholecalciferol, Vitamin D3, 2,000 unit cap Take 1 capsule by mouth once daily. polyethylene glycol 3350 (MIRALAX) 17 gram/dose powder Take 17 g by mouth once daily. Mix with 8 ounces of liquid and allow sufficient time to dissolve. (1 capful equals 17 g), (Canister please) aspirin, enteric coated (ASPIRIN, ENTERIC COATED) 81 mg EC tablet Take 162 mg by mouth once daily. PSYLLIUM SEED, WITH SUGAR, (METAMUCIL ORAL) Take by mouth. 3 times daily docusate sodium (COLACE) 100 mg capsule Take two capsules by mouth once daily. VITAMIN E 400 UNIT CAP Take one(1) tablet twice daily. CENTRUM SILVER TABLET Take (1) one tablet daily LUTEIN 6MG SOFTGEL Take one(1) tablet daily. Foam Bandage (OPTIFOAM) 4 X 4 bndg Apply to affected area once daily. [id number] [employer] Coloplast collagen hydrogel Disp: 9 oz Apply topically to pressure sore daily Refill: 3 (Patient not taking: Reported on 08/09/2022) No current facility-administered medications for this visit. Review of Systems Objective BP 152/68 Pulse 88 Temp 36.7 C (98 F) Resp 18 Wt 60.6 kg (133 lb 8 oz) SpO2 97% BMI 23.65 kg/m Last 5 Encounter Wt Readings: Date: Wt: 08/09/2022 60.6 kg (133 lb 8 oz) 02/04/2022 59.9 kg (132 lb) 08/03/2021 60.8 kg (134 lb) 03/12/2021 64 kg (141 lb) 10/01/2020 65.3 kg (144 lb) No waist measurement recorded Estimated body mass index is 23.65 kg/m as calculated from the following: Height as of 10/17/16: 160 cm (5' 2.99). Weight as of this encounter: 60.6 kg (133 lb 8 oz). Last 5 Encounter BP Readings: Date: BP: 08/09/2022 152/68 02/04/2022 130/78 08/03/2021 122/72 03/12/2021 134/68 10/06/2020 130/70 08/09/22 1108 08/09/22 1225 BP: 152/68 122/60 Pulse: 88 Resp: 18 Temp: 36.7 C (98 F) SpO2: 97% Weight: 60.6 kg (133 lb 8 oz) Physical Exam Constitutional: Appearance: Normal appearance. HENT: Head: Normocephalic. Eyes: Conjunctiva/sclera: Conjunctivae normal. Cardiovascular: Rate and Rhythm: Normal rate and regular rhythm. Heart sounds: Normal heart sounds. Pulmonary: Effort: Pulmonary effort is normal. Breath sounds: Normal breath sounds. Musculoskeletal: Right lower leg: No edema. Skin: General: Skin is warm and dry. Neurological: General: No focal deficit present. Mental Status: She is alert and oriented to person, place, and time. Psychiatric: Mood and Affect: Mood normal. Behavior: Behavior normal. Thought Content: Thought content normal. Judgment: Judgment normal. Component Latest Ref Rng & Units 02/05/2021 02/05/2021 03/12/2021 01/28/2022 08/02/2022 9:30 AM 9:31 AM WBC 3.70 - 11.00 k/uL 5.60 Duplicate request 5.98 6.31 RBC 3.90 - 5.20 m/uL 4.19 Duplicate request 4.40 4.50 Hemoglobin 11.5 - 15.5 g/dL 12.1 Duplicate request 12.8 12.8 Hematocrit 36.0 - 46.0 % 37.1 Duplicate request 39.3 40.9 MCV 80.0 - 100.0 fL 88.5 Duplicate request 89.3 90.9 MCH 26.0 - 34.0 pg 28.9 Duplicate request 29.1 28.4 MCHC 30.5 - 36.0 g/dL 32.6 Duplicate request 32.6 31.3 RDW-CV 11.5 - 15.0 % 13.2 Duplicate request 13.2 13.6 Platelet Count 150 - 400 k/uL 308 Duplicate request 325 372 MPV 9.0 - 12.7 fL 8.4 (L) Duplicate request 8.8 (L) 9.0 Neut% % 50.8 Abs Neut (ANC) 1.45 - 7.50 k/uL 2.84 2.82 3.00 Lymph% % 36.1 Abs Lymph 1.00 - 4.00 k/uL 2.02 Dane% % 7.5 Abs Dane <0.87 k/uL 0.42 Eosin% % 4.5 Abs Eosin <0.46 k/uL 0.25 Baso% % 1.1 Abs Baso <0.11 k/uL 0.06 Nucleated Reds 0 /100 WBC 0.0 Absolute nRBC <0.01 k/uL <0.01 Duplicate request <0.01 <0.01 Diff Type Auto Diff Protein, Total 6.3 - 8.0 g/dL 6.2 (L) 6.4 6.3 Albumin 3.9 - 4.9 g/dL 3.8 (L) 4.0 4.2 Calcium 8.5 - 10.2 mg/dL 9.3 9.2 9.7 Bilirubin, Total 0.2 - 1.3 mg/dL 0.3 0.4 0.3 Alkaline Phosphatase 34 - 123 U/L 61 68 74 AST 13 - 35 U/L 16 16 15 Glucose 74 - 99 mg/dL 93 91 89 BUN 7 - 21 mg/dL 17 19 16 Creatinine 0.58 - 0.96 mg/dL 0.97 (H) 0.87 0.94 Sodium 136 - 144 mmol/L 141 141 144 Potassium 3.7 - 5.1 mmol/L 3.9 3.9 4.5 Chloride 97 - 105 mmol/L 106 (H) 105 107 (H) CO2 22 - 30 mmol/L 27 28 26 Anion Gap 9 - 18 mmol/L 8 (L) 8 (L) 11 ALT 7 - 38 U/L 11 11 13 eGFR- >60 eGFR-All Other Races . 55 eGFR >=60 mL/min/1.73m 67 60 Recheck Duplicate request Review (for CBC/CBCDIF) Duplicate request Comment, CBC Duplicate request Absol Gran Count 1.45 - 7.50 k/uL Duplicate request IMMATURE GRANS (ABS) <0.10 k/uL <0.03 <0.03 LD 135 - 214 U/L 158 164 171 TSH 0.270 - 4.200 uU/mL 1.730 Vitamin D 25 Hydroxy 31.0 - 80.0 ng/mL 52.4 50.8 Assessment and Plan Encounter Diagnosis ICD-10-CM 1. Essential hypertension, benign I10 2. 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 Rectal spasm K59.4 nitroglycerin ointment 0.2% (CPD) 4. Thyroid nodule E04.1 US THYROID/PARATHYROID Above issues addressed with patient. Patient involved in shared decision making for management of medical issues. History and medications reviewed. Epic updated as needed Refills and/or prescriptions taken care of and meds adjusted as indicated after reviewed history, exam and labs. Health Maintenance reviewed. Updated record and/or ordered tests as recorded. Encouraged on efforts at healthy diet and regular exercise and adequate sleep. Laurence Martin MD documented in this encounter [facility] 07-26-2022 Miscellaneous Notes The following approved medication requests have been transmitted electronically. Requested Prescriptions Signed Prescriptions Disp Refills gabapentin (NEURONTIN) 100 mg capsule 270 capsule 3 Sig: Take 1 capsule by mouth three times daily. In addition to 600 mg dose Authorizing Provider: LAURENCE MARTIN gabapentin (NEURONTIN) 300 mg capsule 630 capsule 3 Sig: Take 2 capsules by mouth every morning AND 2 capsules every evening AND 3 capsules daily at bedtime. Do all this for 360 days. In addition to 100 mg capsule. Authorizing Provider: LAURENCE MARTIN MD Will give more refills at upcoming July appt Last seen pcp 02/04/22. Next appt is 08/09/22. Patient has been identified by name and date of : Yes Requested Prescriptions Pending Prescriptions Disp Refills gabapentin (NEURONTIN) 100 mg capsule 270 capsule 3 Sig: Take 1 capsule by mouth three times daily. In addition to 600 mg dose gabapentin (NEURONTIN) 300 mg capsule 630 capsule 3 Sig: Take 2 capsules by mouth every morning AND 2 capsules every evening AND 3 capsules daily at bedtime. Do all this for 360 days. In addition to 100 mg capsule. RX INSTRUCTIONS: Patient aware RX escripted to mail away pharmacy. No need to notify patient. Alley Whitaker Pss documented in this encounter [facility] 06-10-2022 Miscellaneous Notes Patient phones requesting refills as follows: Requested Prescriptions Pending Prescriptions Disp Refills lisinopril (ZESTRIL, PRINIVIL) 10 mg tablet 90 tablet 3 Sig: Take 1 tablet by mouth once daily. pentoxifylline ER (TRENTAL) 400 mg CR tablet 180 tablet 3 Sig: Take 1 tablet by mouth twice daily. verapamil SR (CALAN SR, ISOPTIN SR) 180 mg CR tablet 90 tablet 3 Sig: Take 1 tablet by mouth daily at bedtime. omeprazole (PRILOSEC) 20 mg capsule 90 capsule 3 Sig: Take 1 capsule by mouth once daily. LUIS-02/04/22 Labs-01/28/22 NOV-08/09/22 Please review and advise. Skylar Hdez LPN documented in this encounter [facility] 05-11-2022 Miscellaneous Notes Patient has been identified by name and date of : Yes Patient phones for refill(s): Requested Prescriptions Pending Prescriptions Disp Refills nystatin (MYCOSTATIN) cream 30 g 1 Sig: Apply 1 application to affected area twice daily. Date of last office visit in primary care: 02/04/2022 6 month follow-up: 08/09/2022 Last 2 Encounter Wt Readings: Date: Wt: 02/04/2022 59.9 kg (132 lb) 08/03/2021 60.8 kg (134 lb) Previous labs/tests for medication: Not applicable Please advise. Thank you. Radha Buchanan LPN documented in this encounter [facility] 02-28-2022 Miscellaneous Notes Addended by: SHAI SAXENA on: 02/28/2022 01:19 PM Modules accepted: Orders Patient phones requesting refills as follows: Requested Prescriptions Pending Prescriptions Disp Refills nitroglycerin 0.2% oint 0 Sig: by RECTAL route. LUIS-02/04/22 Labs-01/28/22 NOV-08/09/22 med filled 01/03/2008 Please review and advise. Skylar Hdez LPN documented in this encounter [facility] 02-04-2022 History of Presen t illness Narrative This note was created using [employer]. Subjective Eileen Mckinley is a 81 year old female. Patient presents with: F/U 6 months SUBJECTIVE: Eileen Mckinley is a 81 year old year old lady here today for 6 month follow up appointment for review of medical conditions. Reviewed thyroid US. Stable last year in February. 2020 is first of recommended check--1, 3 and 5 years from then. Gabapentin 700 mg TID and occasionally takes an extra 100mg tablet. Tolerates well. Advil sometimes for flare ups for 3 to 4 days. Urinary leakage first thing in AM. Coughing and sneezing causes leaking. Already limits caffeine--no tea or coffee. Likes chocolate but not eating too much. Depression Screening 11/24/2015 10/04/2017 09/28/2020 02/04/2022 PHQ-2 Score 0 0 0 0 Depression screening tool completed and reviewed. Based on score and interview, patient is not at risk for depression. Screening tool discussed with patient, and I recommended no further intervention at this time. 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 gabapentin (NEURONTIN) 100 mg capsule Take 1 capsule by mouth three times daily. In addition to 600 mg dose gabapentin (NEURONTIN) 300 mg capsule Take 2 capsules by mouth every morning AND 2 capsules every evening AND 3 capsules daily at bedtime. Do all this for 360 days. In addition to 100 mg capsule. lisinopril (ZESTRIL, PRINIVIL) 10 mg tablet TAKE 1 TABLET DAILY pentoxifylline ER (TRENTAL) 400 mg CR tablet TAKE 1 TABLET TWICE A DAY verapamil SR (CALAN SR, ISOPTIN SR) 180 mg CR tablet TAKE 1 TABLET DAILY AT BEDTIME omeprazole (PRILOSEC) 20 mg capsule TAKE 1 CAPSULE DAILY Cholecalciferol, Vitamin D3, 2,000 unit cap Take 1 capsule by mouth once daily. polyethylene glycol 3350 (MIRALAX) 17 gram/dose powder Take 17 g by mouth once daily. Mix with 8 ounces of liquid and allow sufficient time to dissolve. (1 capful equals 17 g), (Canister please) aspirin, enteric coated (ASPIRIN, ENTERIC COATED) 81 mg EC tablet Take 162 mg by mouth once daily. PSYLLIUM SEED, WITH SUGAR, (METAMUCIL ORAL) Take by mouth. 3 times daily docusate sodium (COLACE) 100 mg capsule Take two capsules by mouth once daily. VITAMIN E 400 UNIT CAP Take one(1) tablet twice daily. NITROGLYCERIN 0.2% OINTMENT ([facility]) apply bid to perianal area prn anal pain CENTRUM SILVER TABLET Take (1) one tablet daily LUTEIN 6MG SOFTGEL Take one(1) tablet daily. meloxicam (MOBIC) 15 mg tablet Take 1 tablet by mouth once daily. With food. Foam Bandage (OPTIFOAM) 4 X 4 bndg Apply to affected area once daily. [id number] [employer] Coloplast collagen hydrogel Disp: 9 oz Apply topically to pressure sore daily Refill: 3 No current facility-administered medications for this visit. Review of Systems Objective BP 130/78 Pulse 86 Wt 59.9 kg (132 lb) SpO2 96% BMI 23.39 kg/m Last 5 Encounter Wt Readings: Date: Wt: 02/04/2022 59.9 kg (132 lb) 08/03/2021 60.8 kg (134 lb) 03/12/2021 64 kg (141 lb) 10/01/2020 65.3 kg (144 lb) 08/18/2020 0 kg () No waist measurement recorded Estimated body mass index is 23.39 kg/m as calculated from the following: Height as of 10/17/16: 160 cm (5' 2.99). Weight as of this encounter: 59.9 kg (132 lb). Last 5 Encounter BP Readings: Date: BP: 02/04/2022 130/78 08/03/2021 122/72 03/12/2021 134/68 10/06/2020 130/70 10/01/2020 144/62 Physical Exam Constitutional: Appearance: Normal appearance. HENT: Head: Normocephalic. Eyes: Conjunctiva/sclera: Conjunctivae normal. Cardiovascular: Rate and Rhythm: Normal rate and regular rhythm. Heart sounds: Normal heart sounds. Pulmonary: Effort: Pulmonary effort is normal. Breath sounds: Normal breath sounds. Musculoskeletal: Comments: s/p left AKA Skin: General: Skin is warm and dry. Neurological: General: No focal deficit present. Mental Status: She is alert and oriented to person, place, and time. Psychiatric: Mood and Affect: Mood normal. Behavior: Behavior normal. Thought Content: Thought content normal. Judgment: Judgment normal. Component Latest Ref Rng & Units 10/28/2019 02/05/2021 02/05/2021 01/12/2022 01/28/2022 9:30 AM 9:31 AM WBC 3.70 - 11.00 k/uL 5.51 5.60 Duplicate request 5.98 RBC 3.90 - 5.20 m/uL 4.42 4.19 Duplicate request 4.40 Hemoglobin 11.5 - 15.5 g/dL 12.6 12.1 Duplicate request 12.8 Hematocrit 36.0 - 46.0 % 39.0 37.1 Duplicate request 39.3 MCV 80.0 - 100.0 fL 88.2 88.5 Duplicate request 89.3 MCH 26.0 - 34.0 pg 28.5 28.9 Duplicate request 29.1 MCHC 30.5 - 36.0 g/dL 32.3 32.6 Duplicate request 32.6 RDW-CV 11.5 - 15.0 % 13.7 13.2 Duplicate request 13.2 Platelet Count 150 - 400 k/uL 353 308 Duplicate request 325 MPV 9.0 - 12.7 fL 8.4 (L) 8.4 (L) Duplicate request 8.8 (L) Neut% % 61.7 50.8 Abs Neut (ANC) 1.45 - 7.50 k/uL 3.39 2.84 2.82 Lymph% % 27.6 36.1 Abs Lymph 1.00 - 4.00 k/uL 1.52 2.02 Dane% % 7.4 7.5 Abs Dane <0.87 k/uL 0.41 0.42 Eosin% % 2.4 4.5 Abs Eosin <0.46 k/uL 0.13 0.25 Baso% % 0.9 1.1 Abs Baso <0.11 k/uL 0.05 0.06 Nucleated Reds 0 /100 WBC 0.0 0.0 Absolute nRBC <0.01 k/uL <0.01 <0.01 Duplicate request <0.01 Diff Type Auto Diff Auto Diff Protein, Total 6.3 - 8.0 g/dL 6.7 6.2 (L) 6.4 Albumin 3.9 - 4.9 g/dL 3.9 3.8 (L) 4.0 Calcium 8.5 - 10.2 mg/dL 9.4 9.3 9.2 Bilirubin, Total 0.2 - 1.3 mg/dL 0.3 0.3 0.4 Alkaline Phosphatase 34 - 123 U/L 80 61 68 AST 13 - 35 U/L 16 16 16 Glucose 74 - 99 mg/dL 97 93 91 BUN 7 - 21 mg/dL 19 17 19 Creatinine 0.58 - 0.96 mg/dL 0.79 0.97 (H) 0.87 Sodium 136 - 144 mmol/L 140 141 141 Potassium 3.7 - 5.1 mmol/L 4.3 3.9 3.9 Chloride 97 - 105 mmol/L 106 (H) 106 (H) 105 CO2 22 - 30 mmol/L 24 27 28 Anion Gap 9 - 18 mmol/L 10 8 (L) 8 (L) ALT 7 - 38 U/L 11 11 11 eGFR- >60 >60 eGFR-All Other Races . >60 55 eGFR >=60 mL/min/1.73m 67 Recheck Duplicate request Review (for CBC/CBCDIF) Duplicate request Comment, CBC Duplicate request Absol Gran Count 1.45 - 7.50 k/uL Duplicate request IMMATURE GRANS (ABS) <0.10 k/uL <0.03 LD 135 - 214 U/L 159 158 164 Ferritin 14.7 - 205.1 ng/mL 66.2 Occult Blood, Stool Negative Negative Vitamin D 25 Hydroxy 31.0 - 80.0 ng/mL 52.4 Reviewed BMP and mammogram. Assessment and Plan ASSESSMENT/PLAN: 1. Vitamin D deficiency - ICD9: 268.9, ICD10: E55.9 (primary diagnosis) Adjust supplement as needed 2. 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 3. Essential hypertension, benign - ICD9: 401.1, ICD10: I10 - good control - Continue current medication(s) - Recommended regular aerobic exercise. - Goal of BP <130/80 4. Gastroesophageal reflux disease, unspecified whether esophagitis present - ICD9: 530.81, ICD10: K21.9 Continue present management. 5. 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 6. Primary stress urinary incontinence - ICD9: 625.6, ICD10: N39.3 Discussed management 7. Encounter for immunization - ICD9: V03.89, ICD10: Z23 - INFLUENZA SEASONAL QUADRIVALENT HIGH DOSE AGE 65+ Laurence Martin MD Additional Medical Conditions Dx: Z87.2 - History of skin ulcer Assessment and plan: Resolved. Monitors for recurrence. Discussed today Last edited 02/04/22 11:21 EDT by Laurence Martin MD documented in this encounter [facility] 10-26-2021 Miscellaneous Notes Our office did receive your refill request for Gabapentin 100mg, however a new prescription was done 08/03/2021 for 270 capsules, 3 refills, to end 08/03/2022 to [facility]. Please check with your pharmacy. Radha Buchanan LPN documented in this encounter [facility] 08-03-2021 Instructions Laurence Martin MD - 08/03/2021 11:29 AM EDT BONE MINERAL DENSITY PATIENT INSTRUCTIONS ========= Bone mineral density testing measures the amount of calcium in certain parts of your bones. This information determines how strong your bones are. The test is used to detect osteoporosis, a disease in which the bone's mineral content and density are low, increasing a person's risk of fractures. The lumbar spine (lower back) and the hip are the skeletal sites usually examined. For the test, remember that: 1. You cannot take this test if you are . 2. Eat a normal diet on the day of the test. 3. Take your medications as you normally would. 4. DO NOT take calcium supplements (such as Tums) for 24 hours before the test. 5. On the day of the test, leave valuables (jewelry or credit cards) at home. 6. The test should be performed prior to oral, rectal or IV contrast studies, or at least 7 days after any of these studies. For the test, you may be asked to wear a hospital gown. You will lie on your back, on a padded table, in a comfortable position. Generally, you can resume your usual activities immediately. documented in this encounter [facility] 08-03-2021 History of Presen t illness Narrative This note was created using [employer]. Subjective Eileen Mckinley is a 81 year old female. Patient presents with: F/U 6 months SUBJECTIVE: Eileen Mckinley is a 81 year old year old lady here today for 6 month follow up appointment for review of medical conditions. Overall doing well. Has had more pain so taking more gabapentin and Advil. Would like to try meloxicam now. 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 gabapentin (NEURONTIN) 300 mg capsule Take 2 capsules by mouth every morning AND 2 capsules every evening AND 3 capsules daily at bedtime. Do all this for 360 days. gabapentin (NEURONTIN) 100 mg capsule Take 1 capsule by mouth twice daily for 180 days. In addition to 600 mg dose Foam Bandage (OPTIFOAM) 4 X 4 bndg Apply to affected area once daily. [id number] [employer] Coloplast collagen hydrogel Disp: 9 oz Apply topically to pressure sore daily Refill: 3 Cholecalciferol, Vitamin D3, 2,000 unit cap Take 1 capsule by mouth once daily. polyethylene glycol 3350 (MIRALAX) 17 gram/dose powder Take 17 g by mouth once daily. Mix with 8 ounces of liquid and allow sufficient time to dissolve. (1 capful equals 17 g), (Canister please) ibuprofen (ADVIL) 200 mg tablet Take 200 mg by mouth every 6 hours as needed. aspirin, enteric coated (ASPIRIN LOW DOSE) 81 mg EC tablet Take 162 mg by mouth once daily. PSYLLIUM SEED, WITH SUGAR, (METAMUCIL ORAL) Take by mouth. 3 times daily docusate sodium (COLACE) 100 mg capsule Take two capsules by mouth once daily. VITAMIN E 400 UNIT CAP Take one(1) tablet twice daily. NITROGLYCERIN 0.2% OINTMENT ([facility]) apply bid to perianal area prn anal pain CENTRUM SILVER TABLET Take (1) one tablet daily LUTEIN 6MG SOFTGEL Take one(1) tablet daily. No current facility-administered medications for this visit. Review of Systems Objective BP 122/72 Pulse 78 Wt 60.8 kg (134 lb) SpO2 98% BMI 23.74 kg/m Physical Exam Constitutional: Appearance: Normal appearance. HENT: Head: Normocephalic. Eyes: Conjunctiva/sclera: Conjunctivae normal. Cardiovascular: Rate and Rhythm: Normal rate and regular rhythm. Heart sounds: Normal heart sounds. Pulmonary: Effort: Pulmonary effort is normal. Breath sounds: Normal breath sounds. Skin: General: Skin is warm and dry. Neurological: General: No focal deficit present. Mental Status: She is alert and oriented to person, place, and time. Psychiatric: Mood and Affect: Mood normal. Behavior: Behavior normal. Thought Content: Thought content normal. Judgment: Judgment normal. Component Latest Ref Rng & Units 06/11/2019 10/28/2019 02/05/2021 02/05/2021 03/12/2021 9:30 AM 9:31 AM WBC 3.70 - 11.00 k/uL 5.51 5.60 Duplicate request RBC 3.90 - 5.20 m/uL 4.42 4.19 Duplicate request Hemoglobin 11.5 - 15.5 g/dL 12.6 12.1 Duplicate request Hematocrit 36.0 - 46.0 % 39.0 37.1 Duplicate request MCV 80.0 - 100.0 fL 88.2 88.5 Duplicate request MCH 26.0 - 34.0 pG 28.5 28.9 Duplicate request MCHC 30.5 - 36.0 g/dL 32.3 32.6 Duplicate request RDW-CV 11.5 - 15.0 % 13.7 13.2 Duplicate request Platelet Count 150 - 400 k/uL 353 308 Duplicate request MPV 9.0 - 12.7 fL 8.4 (L) 8.4 (L) Duplicate request Neut% % 61.7 50.8 Abs Neut (ANC) 1.45 - 7.50 k/uL 3.39 2.84 Lymph% % 27.6 36.1 Abs Lymph 1.00 - 4.00 k/uL 1.52 2.02 Dane% % 7.4 7.5 Abs Dane <0.87 k/uL 0.41 0.42 Eosin% % 2.4 4.5 Abs Eosin <0.46 k/uL 0.13 0.25 Baso% % 0.9 1.1 Abs Baso <0.11 k/uL 0.05 0.06 Nucleated Reds 0 /100 WBC 0.0 0.0 Absolute nRBC <0.01 k/uL <0.01 <0.01 Duplicate request Diff Type Auto Diff Auto Diff Protein, Total 6.3 - 8.0 g/dL 6.7 6.2 (L) Albumin 3.9 - 4.9 g/dL 3.9 3.8 (L) Calcium 8.5 - 10.2 mg/dL 9.4 9.3 Bilirubin, Total 0.2 - 1.3 mg/dL 0.3 0.3 Alkaline Phosphatase 34 - 123 U/L 80 61 AST 13 - 35 U/L 16 16 Glucose 74 - 99 mg/dL 97 93 BUN 7 - 21 mg/dL 19 17 Creatinine 0.58 - 0.96 mg/dL 0.79 0.97 (H) Sodium 136 - 144 mmol/L 140 141 Potassium 3.7 - 5.1 mmol/L 4.3 3.9 Chloride 97 - 105 mmol/L 106 (H) 106 (H) CO2 22 - 30 mmol/L 24 27 Anion Gap 9 - 18 mmol/L 10 8 (L) ALT 7 - 38 U/L 11 11 eGFR- >60 >60 eGFR-All Other Races . >60 55 Recheck Duplicate request Review (for CBC/CBCDIF) Duplicate request Comment, CBC Duplicate request Absol Gran Count 1.45 - 7.50 k/uL Duplicate request Vitamin D 25 Hydroxy 31.0 - 80.0 ng/mL 48.5 LD 135 - 214 U/L 159 158 Ferritin 14.7 - 205.1 ng/mL 66.2 TSH 0.270 - 4.200 uU/mL 1.730 Assessment and Plan ASSESSMENT/PLAN: 1. 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 - MELOXICAM 15 MG TABLET - GABAPENTIN 100 MG CAPSULE - GABAPENTIN 300 MG CAPSULE 2. Essential thrombocythemia (HCC) - ICD9: 238.71, ICD10: D47.3 Continue present management. - COMP METABOLIC PANEL - ABS GRAN CT + CBC 3. Essential hypertension, benign - ICD9: 401.1, ICD10: I10 - good control - Continue current medication(s) - Recommended regular aerobic exercise. - Recommend home blood pressure monitoring, to bring results in on next visit - Goal of BP <130/80 - COMP METABOLIC PANEL - LD LACTATE DEHYDRO 4. Vitamin D deficiency - ICD9: 268.9, ICD10: E55.9 - VITAMIN D 25 HYDROXY 5. Breast cancer screening by mammogram - ICD9: V76.12, ICD10: Z12.31 - Set up for mammogram, yearly mammogram recommended - MARY SCREENING W BRAD 6. Asymptomatic postmenopausal status - ICD9: V49.81, ICD10: Z78.0 - DXA-AXIAL SKELETON - MARY SCREENING W BRAD Laurence Martin MD documented in this encounter [facility] 02-22-2019 History of Past i llness Narrative Problem Noted Date Resolved Date Groin strain 02/22/2019 10/01/2020 Contusion of left wrist 02/22/2019 10/02/19 21 Contusion of left hip 02/22/2019 10/01/2020 Fracture of fifth metacarpal bone of left hand 0 08/06/2012 11/24/2015 Anal or rectal pain 01/03/2008 10/08/2017 High grade myelodysplastic syndrome lesions 01/2305/10/2007 documented as of this encounter (statuses as of 10/17/2021) [facility] History of Past illness Narrative* Problem Noted Date Resolved Date Groin strain 02/22/2019 10/01/2020 Contusion of left wrist 02/22/2019 10/02/19 21 Contusion of left hip 02/22/2019 10/01/2020 Fracture of fifth metacarpal bone of left hand 0 08/06/2012 11/24/2015 Anal or rectal pain 01/03/2008 10/08/2017 High grade myelodysplastic syndrome lesions 10/08/200605/10/2007 documented as of this encounter (statuses as of 10/19/2021) [facility] History of Past illness Narrative* Problem Noted Date Resolved Date Groin strain 02/22/2019 10/01/2020 Contusion of left wrist 02/22/2019 10/02/19 21 Contusion of left hip 02/22/2019 10/01/2020 Fracture of fifth metacarpal bone of left hand 0 08/06/2012 11/24/2015 Anal or rectal pain 01/03/2008 10/08/2017 High grade myelodysplastic syndrome lesions /08/200605/10/2007 documented as of this encounter (statuses as of 10/26/2021) [facility] History of Past illness Narrative* Problem Noted Date Resolved Date Groin strain 02/22/2019 10/01/2020 Contusion of left wrist 02/22/2019 10/02/19 21 Contusion of left hip 02/22/2019 10/01/2020 Fracture of fifth metacarpal bone of left hand 0 08/06/2012 11/24/2015 Anal or rectal pain 01/03/2008 10/08/2017 High grade myelodysplastic syndrome lesions 01/2305/10/2007 documented as of this encounter (statuses as of 02/28/2022) [facility] History of Past illness Narrative* Problem Noted Date Resolved Date Groin strain 02/22/2019 10/01/2020 Contusion of left wrist 02/22/2019 10/02/19 21 Contusion of left hip 02/22/2019 10/01/2020 Fracture of fifth metacarpal bone of left hand 0 08/06/2012 11/24/2015 Anal or rectal pain 01/03/2008 10/08/2017 High grade myelodysplastic syndrome lesions 10/08/200605/10/2007 documented as of this encounter (statuses as of 03/05/2022) [facility] of Past illness Narrative* Problem Noted Date Resolved Date Groin strain 02/22/2019 10/01/2020 Contusion of left wrist 02/22/2019 10/02/19 21 Contusion of left hip 02/22/2019 10/01/2020 Fracture of fifth metacarpal bone of left hand 0 08/06/2012 11/24/2015 Anal or rectal pain 01/03/2008 10/08/2017 High grade myelodysplastic syndrome lesions 10/2 08/200605/10/2007 documented as of this encounter (statuses as of 05/11/2022) [facility] of Past illness Narrative* Problem Noted Date Resolved Date Groin strain 02/22/2019 10/01/2020 Contusion of left wrist 02/22/2019 10/02/19 21 Contusion of left hip 02/22/2019 10/01/2020 Fracture of fifth metacarpal bone of left hand 0 08/06/2012 11/24/2015 Anal or rectal pain 01/03/2008 10/08/2017 High grade myelodysplastic syndrome lesions 10/2 08/200605/10/2007 documented as of this encounter (statuses as of 06/09/2022) [facility] of Past illness Narrative* Problem Noted Date Resolved Date Groin strain 02/22/2019 10/01/2020 Contusion of left wrist 02/22/2019 10/02/19 21 Contusion of left hip 02/22/2019 10/01/2020 Fracture of fifth metacarpal bone of left hand 0 08/06/2012 11/24/2015 Anal or rectal pain 01/03/2008 10/08/2017 High grade myelodysplastic syndrome lesions 10/2 08/200605/10/2007 documented as of this encounter (statuses as of 06/10/2022) [facility] of Past illness Narrative* Problem Noted Date Resolved Date Groin strain 02/22/2019 10/01/2020 Contusion of left wrist 02/22/2019 10/02/19 21 Contusion of left hip 02/22/2019 10/01/2020 Fracture of fifth metacarpal bone of left hand 0 08/06/2012 11/24/2015 Anal or rectal pain 01/03/2008 10/08/2017 High grade myelodysplastic syndrome lesions 1008/200605/10/2007 documented as of this encounter (statuses as of 07/28/2022) [facility] History of Past illness Narrative* Problem Noted Date Resolved Date Groin strain 02/22/2019 10/01/2020 Contusion of left wrist 02/22/2019 10/02/19 21 Contusion of left hip 02/22/2019 10/01/2020 Fracture of fifth metacarpal bone of left hand 0 08/06/2012 11/24/2015 Anal or rectal pain 01/03/2008 10/08/2017 High grade myelodysplastic syndrome lesions 01/2305/10/2007 documented as of this encounter (statuses as of 08/20/2022) [facility] of [facility] Narrative* Problem Noted Date Resolved Date Groin strain 02/22/2019 10/01/2020 Contusion of left wrist 02/22/2019 10/02/19 21 Contusion of left hip 02/22/2019 10/01/2020 Fracture of fifth metacarpal bone of left hand 0 08/06/2012 11/24/2015 Anal or rectal pain 01/03/2008 10/08/2017 High grade myelodysplastic syndrome lesions 01/2305/10/2007 documented as of this encounter (statuses as of 09/05/2022) [facility] of Past illness Narrative* Problem Noted Date Diagnosed Date Resolved Date Groin strain 02/22/2019 10/01/2020 Contusion of left wrist 02/22/201909/22 Contusion of left hip 02/22/20192020 Fracture of fifth metacarpal bone of left hand 08/06/2012 11/24/2015 Anal or rectal pain 01/03/2008 10/09/19 18 High grade myelodysplastic syndrome lesions 02/15/2007 05/10/2007 documented as of this encounter (statuses as of 01/14/2023) [facility] of Past [facility] Narrative* Problem Noted Date Diagnosed Date Resolved Date Groin strain 02/22/2019 10/01/2020 Contusion of left wrist 02/22/201909/22 Contusion of left hip 02/22/20192020 Fracture of fifth metacarpal bone of left hand 08/06/2012 11/24/2015 Anal or rectal pain 01/03/2008 10/09/19 18 High grade myelodysplastic syndrome lesions 02/15/2007 05/10/2007 documented as of this encounter (statuses as of 02/13/2023) [facility] of Past illness Narrative* Problem Noted Date Diagnosed Date Resolved Date Groin strain 02/22/2019 10/01/2020 Contusion of left wrist 02/22/201909/22 Contusion of left hip 02/22/20192020 Fracture of fifth metacarpal bone of left hand 08/06/2012 11/24/2015 Anal or rectal pain 01/03/2008 10/09/19 18 High grade myelodysplastic syndrome lesions 02/15/2007 05/10/2007 documented as of this encounter (statuses as of 02/14/2023) [facility] of Past illness Narrative* Problem Noted Date Diagnosed Date Resolved Date Skin ulcer, limited to breakdown of skin 02/22/2019 04/19/2023 Groin strain 02/22/2019 10/01/2020 Contusion of left wrist 02/22/201909/22 Contusion of left hip 02/22/20192020 Fracture of fifth metacarpal bone of left hand 08/06/2012 11/24/2015 Essential thrombocythemia 04/10/2008 Anal or rectal pain 01/03/2008 10/09/19 18 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) 05/10/2007 04/19/2023 High grade myelodysplastic syndrome lesions 02/15/2007 05/10/2007 documented as of this encounter (statuses as of 2023) [facility] Narrative* Problem Noted Date Diagnosed Date Resolved Date Skin ulcer, limited to breakdown of skin 02/22/2019 04/19/2023 Groin strain 02/22/2019 10/01/2020 Contusion of left wrist 02/22/201909/22 Contusion of left hip 02/22/20192020 Fracture of fifth metacarpal bone of left hand 08/06/2012 11/24/2015 Essential thrombocythemia 04/10/2008 Anal or rectal pain 01/03/2008 10/09/19 18 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) 05/10/2007 04/19/2023 High grade myelodysplastic syndrome lesions 02/15/2007 05/10/2007 documented as of this encounter (statuses as of 2023) [facility] History of Past illness Narrative* Problem Noted Date Diagnosed Date Resolved Date Skin ulcer, limited to breakdown of skin 02/22/2019 04/19/2023 Groin strain 02/22/2019 10/01/2020 Contusion of left wrist 02/22/201909/22 Contusion of left hip 02/22/20192020 Fracture of fifth metacarpal bone of left hand 08/06/2012 11/24/2015 Essential thrombocythemia 04/10/2008 Anal or rectal pain 01/03/2008 10/09/19 18 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) 05/10/2007 04/19/2023 High grade myelodysplastic syndrome lesions 02/15/2007 05/10/2007 documented as of this encounter (statuses as of 06/13/2023) [facility] of Past illness Narrative* Problem Noted Date Diagnosed Date Resolved Date Skin ulcer, limited to breakdown of skin 02/22/2019 04/19/2023 Groin strain 02/22/2019 10/01/2020 Contusion of left wrist 02/22/201909/22 Contusion of left hip 02/22/20192020 Fracture of fifth metacarpal bone of left hand 08/06/2012 11/24/2015 Essential thrombocythemia 04/10/2008 Anal or rectal pain 01/03/2008 10/09/19 18 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) 05/10/2007 04/19/2023 High grade myelodysplastic syndrome lesions 02/15/2007 05/10/2007 documented as of this encounter (statuses as of 07/06/2023) [facility] of Past [facility] Narrative* Problem Noted Date Diagnosed Date Resolved Date Skin ulcer, limited to breakdown of skin 02/22/2019 04/19/2023 Groin strain 02/22/2019 10/01/2020 Contusion of left wrist 02/22/201909/22 Contusion of left hip 02/22/20192020 Fracture of fifth metacarpal bone of left hand 08/06/2012 11/24/2015 Essential thrombocythemia 04/10/2008 Anal or rectal pain 01/03/2008 10/09/19 18 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) 05/10/2007 04/19/2023 High grade myelodysplastic syndrome lesions 02/15/2007 05/10/2007 documented as of this encounter (statuses as of 07/31/2023) [facility] Diagnosis Onset Date Resolution Status Decubitus ulcer of right buttock, stage 2 chronic [facility] Work Phone: Evaluation note* Diagnosis 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)- Primary Essential thrombocythemia (HCC) Essential thrombocythemia Essential hypertension, benign Vitamin D deficiency Unspecified vitamin D deficiency Breast cancer screening by mammogram Asymptomatic postmenopausal status [facility] Diagnosis 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) [facility] Diagnosis Vitamin D deficiency- Primary Unspecified vitamin D deficiency 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) Essential hypertension, benign Gastroesophageal reflux disease, unspecified whether esophagitis present Nontoxic multinodular goiter Primary stress urinary incontinence Encounter for immunization Need for other specified prophylactic vaccination against single bacterial disease [facility] Pain in extremity, unspecified extremity [facility] Diagnosis 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) [facility] Diagnosis 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) [facility] Diagnosis Essential hypertension, benign- Primary 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) Rectal spasm Anal spasm Thyroid nodule Nontoxic uninodular goiter [facility] noteNo assessment information availableWSouthview [facility] Work Phone: Evaluation note* Diagnosis 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) [facility] Diagnosis Vitamin D deficiency- Primary Unspecified vitamin D deficiency Essential thrombocythemia (HCC) Essential thrombocythemia Encounter for long-term current use of medication [facility] Diagnosis Need for vaccination- Primary Need for prophylactic vaccination and inoculation against unspecified single disease [facility] Diagnosis Pain in extremity, unspecified extremity [facility] Diagnosis Abnormal ultrasound of thyroid gland- Primary Nonspecific abnormal results of thyroid function study On aspirin at home Encounter for long-term (current) use of aspirin [facility] Diagnosis Abnormal ultrasound of thyroid gland- Primary Nonspecific abnormal results of thyroid function study [facility] Diagnosis UTI symptoms- Primary Other symptoms involving urinary system [facility] Diagnosis Acute cystitis without hematuria- Primary Acute cystitis 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) Vitamin D deficiency Unspecified vitamin D deficiency Age-related osteoporosis without current pathological fracture Senile osteoporosis [facility] Diagnosis Screening mammogram for breast cancer- Primary Age-related osteoporosis without current pathological fracture Senile osteoporosis [facility] Diarrhea, unspecified type- Primary [facility] Diagnosis Elbow injury, initial encounter [facility] Diagnosis 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) [facility] Diagnosis Age-related osteoporosis without current pathological fracture- Primary Senile osteoporosis [facility] Diagnosis 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)- Primary Age-related osteoporosis without current pathological fracture Senile osteoporosis Vitamin D deficiency Unspecified vitamin D deficiency Essential hypertension, benign Gastroesophageal reflux disease, unspecified whether esophagitis present Screening for depression Encounter for immunization Need for other specified prophylactic vaccination against single bacterial disease [facility] Pain in extremity, unspecified extremity [facility] Diagnosis 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) [facility] Diagnosis 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)- Primary Essential hypertension, benign Vitamin D deficiency Unspecified vitamin D deficiency Gastroesophageal reflux disease, unspecified whether esophagitis present Encounter for therapeutic drug monitoring [facility] Diagnosis Screening mammogram for breast cancer- Primary documented in this encounter [facility] for referral (narrative)* Diagnostic Procedure Only (Routine) - Pending Review Specialty Diagnoses / Procedures Referred By Contac t Referred To Contact [facility] Diagnoses Asymptomatic postmenopausal status Breast cancer screening by mammogram Procedures MARY SCREENING W BRAD SCREENING DIGITAL BREAST TOMOSYNTHESIS BI SCREENING MAMMOGRAPHY BI 2-VIEW BREAST INC Laurence Duckworth MD [address] [place] [id number] [facility] [address] [place] [address] Referral ID Status Reason Start Date Expiration Date Visits Requested Visits Authorized [id number] Pending Review Auto-Generat ed Referral 08/03/2021 09/02/2022 1 1 [facility] for referral (narrative)* Diagnostic Procedure Only (Routine) - Pending Review Specialty Diagnoses / Procedures Referred By Roopaac t Referred To Contact [facility] Diagnoses Thyroid nodule Procedures US THYROID/PARATHYROID US SOFT TISSUE HEAD & NECK REAL TIME IMGE Laurence Najera MD [address] [place] [id number] [facility] Referral ID Status Reason Start Date Expiration Date Visits Requested Visits Authorized [id number] Pending Review Auto-Generat ed Referral 3 09/08/2023 1 1 [facility] for referral (narrative)* Diagnostic Procedure Only (Routine) - New Request Specialty Diagnoses / Procedures Referred By Contac t Referred To Contact XR IMAGING Diagnoses Age-related osteoporosis without current pathological fracture Procedures DXA-AXIAL SKELETON Mago Lux APRN.SENIOR BUSINESS DEVELOPMENT MANAGER [address] [place] [address] [place] [address] Referral ID Status Reason Start Date Expiration Date Visits Requested Visits Authorized [id number] New Request Auto-Generat ed Referral 11/14/2023 12/13/2024 1 1 * Diagnostic Procedure Only (Routine) - New Request Specialty Diagnoses / Procedures Referred By Ana hyman Referred To Contact [facility] Diagnoses Screening mammogram for breast cancer Procedures MARY SCREENING W BRAD SCREENING DIGITAL BREAST TOMOSYNTHESIS BI SCREENING MAMMOGRAPHY BI 2-VIEW BREAST INC CAD Mago Lux APRN.SENIOR BUSINESS DEVELOPMENT MANAGER [address] [place] [address] [facility] [address] [place] [address] Referral ID Status Reason Start Date Expiration Date Visits Requested Visits Authorized [id number] New Request Auto-Generat ed Referral 11/14/2023 12/13/2024 1 1 [facility] Chief Complaint and Reason for Visit Chief Complaint WOUND WOUND WOUND Reason for Visit Decubitus ulcer of r ight buttock, stage 2 Chief Complaint WOUND WOUND WOUND SCREENING/OSTEO Reason for Visit Decubitus ulcer of r ight buttock, stage 2 Chief Complaint SCREENING Advance Directives No Advanced Directives Records Found Advance Directive Response Recorded Date/ Time Living Will Yes February 04 11:09am Power of District Manager Major Accounts Sales Yes February 04, 2019 11:09am Documents on File Type Date Recorded Patient Inside Outside Sales Representative Expl anation Advance Directive(s) 07/31/2023 8:37 AM Documents on File Type Date Recorded Patient Inside Outside Sales Representative Expl anation Advance Directive(s) 07/31/2023 8:37 AM Summary Purpose Family History No Family History Records FoundNo Family History Records Found Additional Source Comments Goals (unrecognized section and content) Goals may be documented in a n alternate sectionGoals may be documented in an alternate sectionGoals may be documented in an alternate section Source Comments (unrecognize d section and content) In the event this informatio n is protected by the Federal Confidentiality of Alcohol and Drug Abuse Patient Records regulations: The Federal rules restrict any use of the information to criminally investigate or prosecute any alcohol or drug abuse patient.[facility] the event this information is protected by the Federal Confidentiality of Alcohol and Drug Abuse Patient Records regulations: The Federal rules restrict any use of the information to criminally investigate or prosecute any alcohol or drug abuse patient.[facility]In the event this information is protected by the Federal Confidentiality of Alcohol and Drug Abuse Patient Records regulations: The Federal rules restrict any use of the information to criminally investigate or prosecute any alcohol or drug abuse patient.[facility] the event this information is protected by the Federal Confidentiality of Alcohol and Drug Abuse Patient Records regulations: The Federal rules restrict any use of the information to criminally investigate or prosecute any alcohol or drug abuse patient.[facility] the event this information is protected by the Federal Confidentiality of Alcohol and Drug Abuse Patient Records regulations: The Federal rules restrict any use of the information to criminally investigate or prosecute any alcohol or drug abuse patient.[facility] the event this information is protected by the Federal Confidentiality of Alcohol and Drug Abuse Patient Records regulations: The Federal rules restrict any use of the information to criminally investigate or prosecute any alcohol or drug abuse patient.[facility] the event this information is protected by the Federal Confidentiality of Alcohol and Drug Abuse Patient Records regulations: The Federal rules restrict any use of the information to criminally investigate or prosecute any alcohol or drug abuse patient.[facility] the event this information is protected by the Federal Confidentiality of Alcohol and Drug Abuse Patient Records regulations: The Federal rules restrict any use of the information to criminally investigate or prosecute any alcohol or drug abuse patient.[facility] HospitalIn the event this information is protected by the Federal Confidentiality of Alcohol and Drug Abuse Patient Records regulations: The Federal rules restrict any use of the information to criminally investigate or prosecute any alcohol or drug abuse patient.[facility] HospitalIn the event this information is protected by the Federal Confidentiality of Alcohol and Drug Abuse Patient Records regulations: The Federal rules restrict any use of the information to criminally investigate or prosecute any alcohol or drug abuse patient.[facility] HospitalIn the event this information is protected by the Federal Confidentiality of Alcohol and Drug Abuse Patient Records regulations: The Federal rules restrict any use of the information to criminally investigate or prosecute any alcohol or drug abuse patient.[facility] HospitalIn the event this information is protected by the Federal Confidentiality of Alcohol and Drug Abuse Patient Records regulations: The Federal rules restrict any use of the information to criminally investigate or prosecute any alcohol or drug abuse patient.[facility] HospitalIn the event this information is protected by the Federal Confidentiality of Alcohol and Drug Abuse Patient Records regulations: The Federal rules restrict any use of the information to criminally investigate or prosecute any alcohol or drug abuse patient.[facility] HospitalIn the event this information is protected by the Federal Confidentiality of Alcohol and Drug Abuse Patient Records regulations: The Federal rules restrict any use of the information to criminally investigate or prosecute any alcohol or drug abuse patient.[facility] HospitalIn the event this information is protected by the Federal Confidentiality of Alcohol and Drug Abuse Patient Records regulations: The Federal rules restrict any use of the information to criminally investigate or prosecute any alcohol or drug abuse patient.[facility] HospitalIn the event this information is protected by the Federal Confidentiality of Alcohol and Drug Abuse Patient Records regulations: The Federal rules restrict any use of the information to criminally investigate or prosecute any alcohol or drug abuse patient.[facility] HospitalIn the event this information is protected by the Federal Confidentiality of Alcohol and Drug Abuse Patient Records regulations: The Federal rules restrict any use of the information to criminally investigate or prosecute any alcohol or drug abuse patient.[facility] HospitalIn the event this information is protected by the Federal Confidentiality of Alcohol and Drug Abuse Patient Records regulations: The Federal rules restrict any use of the information to criminally investigate or prosecute any alcohol or drug abuse patient.[facility] HospitalIn the event this information is protected by the Federal Confidentiality of Alcohol and Drug Abuse Patient Records regulations: The Federal rules restrict any use of the information to criminally investigate or prosecute any alcohol or drug abuse patient.[facility] HospitalIn the event this information is protected by the Federal Confidentiality of Alcohol and Drug Abuse Patient Records regulations: The Federal rules restrict any use of the information to criminally investigate or prosecute any alcohol or drug abuse patient.[facility] HospitalIn the event this information is protected by the Federal Confidentiality of Alcohol and Drug Abuse Patient Records regulations: The Federal rules restrict any use of the information to criminally investigate or prosecute any alcohol or drug abuse patient.[facility] HospitalIn the event this information is protected by the Federal Confidentiality of Alcohol and Drug Abuse Patient Records regulations: The Federal rules restrict any use of the information to criminally investigate or prosecute any alcohol or drug abuse patient.[facility] HospitalIn the event this information is protected by the Federal Confidentiality of Alcohol and Drug Abuse Patient Records regulations: The Federal rules restrict any use of the information to criminally investigate or prosecute any alcohol or drug abuse patient.[facility] HospitalIn the event this information is protected by the Federal Confidentiality of Alcohol and Drug Abuse Patient Records regulations: The Federal rules restrict any use of the information to criminally investigate or prosecute any alcohol or drug abuse patient.[facility] HospitalIn the event this information is protected by the Federal Confidentiality of Alcohol and Drug Abuse Patient Records regulations: The Federal rules restrict any use of the information to criminally investigate or prosecute any alcohol or drug abuse patient.[facility] HospitalIn the event this information is protected by the Federal Confidentiality of Alcohol and Drug Abuse Patient Records regulations: The Federal rules restrict any use of the information to criminally investigate or prosecute any alcohol or drug abuse patient.[facility] HospitalIn the event this information is protected by the Federal Confidentiality of Alcohol and Drug Abuse Patient Records regulations: The Federal rules restrict any use of the information to criminally investigate or prosecute any alcohol or drug abuse patient.[facility] HospitalIn the event this information is protected by the Federal Confidentiality of Alcohol and Drug Abuse Patient Records regulations: The Federal rules restrict any use of the information to criminally investigate or prosecute any alcohol or drug abuse patient.[facility] HospitalIn the event this information is protected by the Federal Confidentiality of Alcohol and Drug Abuse Patient Records regulations: The Federal rules restrict any use of the information to criminally investigate or prosecute any alcohol or drug abuse patient.[facility] HospitalIn the event this information is protected by the Federal Confidentiality of Alcohol and Drug Abuse Patient Records regulations: The Federal rules restrict any use of the information to criminally investigate or prosecute any alcohol or drug abuse patient.[facility] HospitalIn the event this information is protected by the Federal Confidentiality of Alcohol and Drug Abuse Patient Records regulations: The Federal rules restrict any use of the information to criminally investigate or prosecute any alcohol or drug abuse patient.[facility] HospitalIn the event this information is protected by the Federal Confidentiality of Alcohol and Drug Abuse Patient Records regulations: The Federal rules restrict any use of the information to criminally investigate or prosecute any alcohol or drug abuse patient.[facility] HospitalIn the event this information is protected by the Federal Confidentiality of Alcohol and Drug Abuse Patient Records regulations: The Federal rules restrict any use of the information to criminally investigate or prosecute any alcohol or drug abuse patient.[facility] HospitalIn the event this information is protected by the Federal Confidentiality of Alcohol and Drug Abuse Patient Records regulations: The Federal rules restrict any use of the information to criminally investigate or prosecute any alcohol or drug abuse patient.[facility] HospitalIn the event this information is protected by the Federal Confidentiality of Alcohol and Drug Abuse Patient Records regulations: The Federal rules restrict any use of the information to criminally investigate or prosecute any alcohol or drug abuse patient.[facility] HospitalIn the event this information is protected by the Federal Confidentiality of Alcohol and Drug Abuse Patient Records regulations: The Federal rules restrict any use of the information to criminally investigate or prosecute any alcohol or drug abuse patient.[facility] HospitalIn the event this information is protected by the Federal Confidentiality of Alcohol and Drug Abuse Patient Records regulations: The Federal rules restrict any use of the information to criminally investigate or prosecute any alcohol or drug abuse patient.[facility] HospitalIn the event this information is protected by the Federal Confidentiality of Alcohol and Drug Abuse Patient Records regulations: The Federal rules restrict any use of the information to criminally investigate or prosecute any alcohol or drug abuse patient.[facility] HospitalIn the event this information is protected by the Federal Confidentiality of Alcohol and Drug Abuse Patient Records regulations: The Federal rules restrict any use of the information to criminally investigate or prosecute any alcohol or drug abuse patient.[facility] HospitalIn the event this information is protected by the Federal Confidentiality of Alcohol and Drug Abuse Patient Records regulations: The Federal rules restrict any use of the information to criminally investigate or prosecute any alcohol or drug abuse patient.[facility] HospitalIn the event this information is protected by the Federal Confidentiality of Alcohol and Drug Abuse Patient Records regulations: The Federal rules restrict any use of the information to criminally investigate or prosecute any alcohol or drug abuse patient.[facility] HospitalIn the event this information is protected by the Federal Confidentiality of Alcohol and Drug Abuse Patient Records regulations: The Federal rules restrict any use of the information to criminally investigate or prosecute any alcohol or drug abuse patient.[facility] HospitalIn the event this information is protected by the Federal Confidentiality of Alcohol and Drug Abuse Patient Records regulations: The Federal rules restrict any use of the information to criminally investigate or prosecute any alcohol or drug abuse patient.[facility] HospitalIn the event this information is protected by the Federal Confidentiality of Alcohol and Drug Abuse Patient Records regulations: The Federal rules restrict any use of the information to criminally investigate or prosecute any alcohol or drug abuse patient.[facility] HospitalIn the event this information is protected by the Federal Confidentiality of Alcohol and Drug Abuse Patient Records regulations: The Federal rules restrict any use of the information to criminally investigate or prosecute any alcohol or drug abuse patient.[facility] Reason for Visit (unrecogniz ed section and content) Reason Onset Date Comments F/U 6 months Radiology Mammogram 08/03/2021 at [facility] Reason Onset Date Comments Refill Request 10/18/2021 Reason Onset Date Comments Refill Request 10/25/2021 Reason Onset Date Comments Refill Request 02/26/2022 Reason Comments F/U 6 months Reason Onset Date Comments Refill Request 05/11/2022 Reason Onset Date Comments Refill Request 06/09/2022 Reason Onset Date Comments Refill Request 07/27/2022 Reason Onset Date Comments Refill Request 07/25/2022 PLEASE SEND TODA Y Refill Request 07/29/2022 Reason Comments F/U 6 months Labs prior Reason Onset Date Comments Refill Request 01/13/2023 Reason Comments Orders Reason Comments Question Reason Onset Date Comments Refill Request 2023 Reason Comments Consult Thyroid nodule Specialty Diagnoses / Procedures Referred By Ana hyman Referred To Contact General Surgery Diagnoses Thyroid nodule Procedures CONSULT TO GENERAL SURGERY OFFICE/OUTPATIENT [facility] 60 MINUTES Shai Saxena APRN.CNP [address] [place] [address] Referral ID Status Reason Start Date Expiration Date V isits Requested Visits Authorized [id number] Closed PCP Requested Referral 05/17/2023 05/16/2024 1 1 Reason Comments Results Reason Comments Procedure US guided FNA of lef t thyroid nodule Reason Comments Patient Update Patient Request Reason Onset Date Comments Refill Request 11/04/2023 Reason Comments Orders Bone Density and Mary mogram Reason Comments Opened In Error Reason Onset Date Comments Refill Request 12/17/2023 Reason Comments Diarrhea Reason Onset Date Comments Refill Request 01/06/2024 Reason Onset Date Comments Refill Request 02/03/2024 Reason Comments Osteoporosis DXA 12/13/23 Reason Onset Date Comments Refill Request 05/03/2024 Reason Onset Date Comments Refill Request 05/14/2024 Reason Onset Date Comments Refill Request 05/17/2024 Reason Onset Date Comments Refill Request 09/03/2024 Reason Comments Orders Mammogram Reason Onset Date Comments Population Health Navigation Outreach 12/24/2024 [facility] Care Teams (unrecognized sec tion and content) Book Jacket Cover Machine Operator Relationship Specialty Start Date End Date Laurence Martin MD [address] [place], [place] [id number] PCP - General Internal Medicine 11/08/20 Book Jacket Cover Machine Operator Relationship Specialty Start Date End Date Laurence Martin MD [facility] [place], [place] [id number] PCP - General Internal Medicine 11/08/20 Book Jacket Cover Machine Operator Relationship Specialty Start Date End Date Laurence Martin MD [address] [place] [id number] PCP - General Internal Medicine 11/08/20 Book Jacket Cover Machine Operator Relationship Specialty Start Date End Date Laurence Martin MD [address] [place], [place] [address] PCP - General Internal Medicine 11/08/20 Book Jacket Cover Machine Operator Relationship Specialty Start Date End Date Laurence Martin MD [address] [place] [address] PCP - General Internal Medicine 11/08/20 Book Jacket Cover Machine Operator Relationship Specialty Start Date End Date Laurence Martin MD [address] [place] [address] PCP - General Internal Medicine 11/08/20 Book Jacket Cover Machine Operator Relationship Specialty Start Date End Date Laurence Martin MD [address] [place], [place] [address] PCP - General Internal Medicine 11/08/20 Book Jacket Cover Machine Operator Relationship Specialty Start Date End Date Laurence Martin MD [address] [place], [place] [address] PCP - General Internal Medicine 11/08/20 Team Status: Active Member Role Status Dates Dr. Alvaro Lawrence III, MD Family Provider Active Dr. Laurence Martin MD Primary Care Provider Active Team Status: Inactive Member Role Status Dates Dr. Laurence Martin MD Primary Care Provider Active Mago Lux CABLE SPLICER ASSISTANT, CABLE SPLICER ASSISTANT-C Attending Provider, Referring Pr ovider Active Book Jacket Cover Machine Operator Relationship Specialty Start Date End Date Laurence Martin MD [address] [place], [place] [address] PCP - General Internal Medicine 11/08/20 Book Jacket Cover Machine Operator Relationship Specialty Start Date End Date Laurence Martin MD [address] [place], [place] [address] PCP - General Internal Medicine 11/08/20 Book Jacket Cover Machine Operator Relationship Specialty Start Date End Date Laurence Martin MD [address] [place] [address] PCP - General Internal Medicine 11/08/20 Book Jacket Cover Machine Operator Relationship Specialty Start Date End Date Laurence Martin MD [address] [place] [address] PCP - General Internal Medicine 11/08/20 Book Jacket Cover Machine Operator Relationship Specialty Start Date End Date Laurence Martin MD [address] [place] [address] PCP - General Internal Medicine 11/08/20 Book Jacket Cover Machine Operator Relationship Specialty Start Date End Date Laurence Martin MD [address] [place] [address] PCP - General Internal Medicine 11/08/20 Book Jacket Cover Machine Operator Relationship Specialty Start Date End Date Laurence Martin MD [address] [place] [address] PCP - General Internal Medicine 11/08/20 Book Jacket Cover Machine Operator Relationship Specialty Start Date End Date Laurence Martin MD [address] [place] [address] PCP - General Internal Medicine 11/08/20 Book Jacket Cover Machine Operator Relationship Specialty Start Date End Date Laurence Martin MD [address] [place] [address] PCP - General Internal Medicine 11/08/20 Book Jacket Cover Machine Operator Relationship Specialty Start Date End Date Laurence Martin MD [address] [facility] [place] [place] [address] PCP - General Internal Medicine 11/08/20 Book Jacket Cover Machine Operator Relationship Specialty Start Date End Date Laurence Martin MD [address] [place] [address] PCP - General Internal Medicine 11/08/20 Book Jacket Cover Machine Operator Relationship Specialty Start Date End Date Laurence Martin MD [address] [place] [address] PCP - General Internal Medicine 11/08/20 Book Jacket Cover Machine Operator Relationship Specialty Start Date End Date Alvaro Lawrence III, MD [place]DRESS PCP - General 07/24/02 11/07/20 Book Jacket Cover Machine Operator Relationship Specialty Start Date End Date Laurence Martin MD [address] [place] [address] PCP - General Internal Medicine 11/08/20 Book Jacket Cover Machine Operator Relationship Specialty Start Date End Date Laurence Martin MD [address] [place], [place] [address] PCP - General Internal Medicine 11/08/20 Book Jacket Cover Machine Operator Relationship Specialty Start Date End Date Laurence Martin MD [address] [place] [address] PCP - General Internal Medicine 11/08/20 Mago Lux APRN.SENIOR BUSINESS DEVELOPMENT MANAGER [address] [place] [address] Denture Packer Internal Medicine 04/01/24 Shai Saxena ENVIRONMENTAL LEAD.DINING ROOM SUPERVISOR [address] [place], [place] [address] Denture Packer Internal Medicine 04/01/24 Book Jacket Cover Machine Operator Relationship Specialty Start Date End Date Laurence Martin MD [address] [place] [address] PCP - General Internal Medicine 11/08/20 Mago Lux, ENVIRONMENTAL LEAD.SENIOR BUSINESS DEVELOPMENT MANAGER [address] [place] [address] Denture Packer Internal Medicine 04/01/24 Shai Saxena ENVIRONMENTAL LEAD.DINING ROOM SUPERVISOR [address] [place] [address] [facility] Internal Medicine 04/01/24 Book Jacket Cover Machine Operator Relationship Specialty Start Date End Date Laurence Martin MD [address] [place] [address] PCP - General Internal Medicine 11/08/20 Mago Lux, ENVIRONMENTAL LEAD.SENIOR BUSINESS DEVELOPMENT MANAGER [address] [place] [address] [facility] Internal Medicine 04/01/24 Shai Saxena ENVIRONMENTAL LEAD.DINING ROOM SUPERVISOR [address] [place] [address] [facility] Internal Medicine 04/01/24 Book Jacket Cover Machine Operator Relationship Specialty Start Date End Date Laurence Martin MD [address] [place] [address] PCP - General Internal Medicine 11/08/20 Mago Lux, ENVIRONMENTAL LEAD.SENIOR BUSINESS DEVELOPMENT MANAGER [address] [place] [address] Denture Packer Internal Medicine 04/01/24 Shai Saxena APRN.DINING ROOM SUPERVISOR [address] [facility] [place] [place] [address] [facility] Internal Medicine 07/16/24 Book Jacket Cover Machine Operator Relationship Specialty Start Date End Date Laurence Martin MD [address] [facility] [place] [place] [address] PCP - General Internal Medicine 11/08/20 Mago Lux ENVIRONMENTAL LEAD.SENIOR BUSINESS DEVELOPMENT MANAGER [address] [facility] [place] [place] [address] [facility] Internal Medicine 04/01/24 Shai Saxena APRN.DINING ROOM SUPERVISOR [address] [facility] [place] [place] [address] [facility] Internal Medicine 07/16/24 Book Jacket Cover Machine Operator Relationship Specialty Start Date End Date Laurence Martin MD [address] [facility] [place] [place] [address] PCP - General Internal Medicine 11/08/20 Shai Saxena APRN.DINING ROOM SUPERVISOR [address] [facility] [place] [place] [address] [facility] Internal Medicine 07/16/24 Mago Lux ENVIRONMENTAL LEAD.SENIOR BUSINESS DEVELOPMENT MANAGER [address] [facility] [place] [place] [address] [facility] Internal Medicine 09/11/24 Book Jacket Cover Machine Operator Relationship Specialty Start Date End Date Laurence Martin MD [address] [facility] [place] [place] [address] PCP - General Internal Medicine 11/08/20 Shai Saxena APRN.DINING ROOM SUPERVISOR [address] [facility] [place] [address] Denture Packer Internal Medicine 07/16/24 Mago Lux APRN.SENIOR BUSINESS DEVELOPMENT MANAGER [address] [facility] [place] [address] Denture Packer Internal Medicine 09/11/24 Book Jacket Cover Machine Operator Relationship Specialty Start Date End Date Laurence Martin MD [address] [facility] [place] [address] PCP - General Internal Medicine 11/08/20 Shai Saxena APRN.DINING ROOM SUPERVISOR [address] [facility] [place] [address] Denture Packer Internal Medicine 07/16/24 Mago uLx APRN.SENIOR BUSINESS DEVELOPMENT MANAGER [address] [facility] [place] [address] [facility] Internal Medicine 09/11/24 Book Jacket Cover Machine Operator Relationship Specialty Start Date End Date Laurence Martin MD [address] [facility] [place] [address] PCP - General Internal Medicine 11/08/20 Shai Saxena APRN.DINING ROOM SUPERVISOR [address] [facility] [place] [address] Denture Packer Internal Medicine 07/16/24 Mago Lux APRN.SENIOR BUSINESS DEVELOPMENT MANAGER [address] [facility] [place] [address] [facility] Internal Medicine 09/11/24 INFORMATION SOURCE (unrecogn ized section and content) DATE CREATED AUTHOR 12/25/2024 [facility] CREATED AUTHOR AUTHOR'S ORGANIZ ATION 12/27/2024 [facility] FOR RECORDS PERTAINING TO PATIENTS WHO ARE OR HAVE BEEN ENROLLED IN A CHEMICAL DEPENDENCY/SUBSTANCEABUSE PROGRAM, SOME INFORMATION MAY BE OMITTED. This clinical summary was aggregated from multiple sources. Caution should be exercised in using it in the provision of clinical care. This summary normalizes information from multiple sources, and as a consequence, information in this document may materially change the coding, format and clinical context of patient data. In addition, data may be omitted in some cases. CLINICAL DECISIONS SHOULD BE BASED ON THE PRIMARY CLINICAL RECORDS. [email or web address] [facility]. provides no warranty or guarantee of the accuracy or completeness of information in this document.
== END | disposition home or self-care (01) ==
LOC: OPBI 14:40
PROVIDERS: PCP Internal Medicine; Referring Provider Internal Medicine; Visit Provider Internal Medicine
DX: Z12.31 Encounter for screening mammogram for malignant neoplasm of breast (principal)
CPT/HCPCS: 77063; 77067